=== PATIENT | male | born 1975 | race Caucasian/White ===

== ENCOUNTER 2018-03-23 13:07 | Emergency (ER) | payer MEDICARE, MEDICAID, SELFPAY ==
[2018-03-23 13:09] VITALS: BP 135/92; PULSE 90; RESP 18; TEMP 36.4; O2SAT 96
--- NOTE | 2018-03-23 13:36 | ED_ITS ---
HPI - Recheck/Abnormal Lab/Rx <ABRAHAM Ryan - Last Filed: 03/23/18 13:48> General Chief Complaint: Recheck/Abnormal Lab/Rx Stated Complaint: States needs emergency inhaler Time Seen by Provider: 03/23/18 13:26 Source: patient Mode of arrival: ambulatory Limitations: no limitations History of Present Illness HPI narrative: Patient is a 43-year-old male active smoker who presents by himself requesting a refill of his Ventolin. He states he has a history of asthma and ran out of his emergency inhaler. He does not have a primary care provider. He does complain of a productive cough but denies any fevers nausea vomiting diarrhea. He denies any shortness of breath at this point time. He states he was exposed to an allergen earlier today, which made his asthma worse so he used up his Ventolin emergency inhaler. He states the only wants today as a refill of his inhaler. Related Data Previous Rx's Medication Instructions Recorded sulfamethoxazole-trimethoprim 1 tab PO BID 7 Days #0 tab 12/18/15 albuterol sulfate [Ventolin HFA] 2 puff INHALATION Q4-6H PRN #18 03/23/18 gram Allergies Allergy/AdvReac Type Severity Reaction Status Date / Time Penicillins Allergy Severe Unresponsiv Verified 03/23/18 13:12 e Review of Systems <ABRAHAM Ryan - Last Filed: 03/23/18 13:48> Review of Systems GENERAL: Denies chills, fatigue, malaise, fever, sweats. HEENT: Denies sinus pain, ear pain, sore throat, difficulty swallowing, dizziness. RESPIRATORY: See HPI CARDIOVASCULAR: Denies chest pain, palpitations, orthopnea, edema, GASTROINTESTINAL: Denies nausea, vomiting, abdominal pain, diarrhea, constipation, melena. : Denies dysuria, frequency, incontinence, hematuria, urinary retention. MUSCULOSKELETAL: denies weakness, joint pain, or bony pain SKIN: Denies rash, skin lesions, or other NEUROLOGIC: Denies weakness, headache, numbness, change in speech, confusion, seizures, incoordination. PSYCHIATRIC: No concerning psychosocial issues. 12 point review of systems is negative except for those stated above Exam <ABRAHAM Ryan - Last Filed: 03/23/18 13:48> Narrative Exam Narrative: GENERAL: This is a well-nourished, well-developed patient, in no acute distress HEAD: Atraumatic. Normocephalic. No temporal or scalp tenderness. EYES: Pupils equal round and reactive. Extraocular motions intact. No scleral icterus. No injection or drainage. ENT: Nose without bleeding, purulent drainage or septal hematoma. Throat without erythema, tonsillar hypertrophy or exudate. Uvula midline. Airway patent. NECK: Trachea midline. No JVD or lymphadenopathy. Supple, nontender, no meningeal signs. CARDIOVASCULAR: Regular rate and rhythm without murmurs, gallops, or rubs. RESPIRATORY: Clear to auscultation. Breath sounds equal bilaterally. No wheezes , rales, or rhonchi. No accessory muscle use. No 1-2 word dyspnea. Speaking clear sentences. GASTROINTESTINAL: Abdomen soft, non-tender, nondistended. No hepato-splenomegaly , or palpable masses. No guarding. EXTREMITIES: No clubbing, cyanosis, or edema. No joint tenderness, effusion, or edema noted. BACK: Nontender without deformity or crepitance. No flank tenderness. NEURO: AOx3. SKIN: No rash or erythema. Initial Vital Signs Initial Vital Signs: Vital Signs Temperature 97.6 F 03/23/18 13:09 Pulse Rate 90 03/23/18 13:09 Respiratory Rate 18 03/23/18 13:09 Blood Pressure 135/92 H 03/23/18 13:09 Pulse Oximetry 96 03/23/18 13:09 <Braden Herrera DO - Last Filed: 03/23/18 14:15> Initial Vital Signs Initial Vital Signs: Vital Signs Temperature 97.6 F 03/23/18 13:09 Pulse Rate 90 03/23/18 13:09 Respiratory Rate 18 03/23/18 13:09 Blood Pressure 135/92 H 03/23/18 13:09 Pulse Oximetry 96 03/23/18 13:09 Course <ABRAHAM Ryan - Last Filed: 03/23/18 13:48> Vital Signs - 8 hr 03/23/18 13:09 Temperature 97.6 F Pulse Rate 90 Respiratory Rate 18 Blood Pressure 135/92 H Pulse Oximetry 96 <Braden Herrera DO - Last Filed: 03/23/18 14:15> Vital Signs - 8 hr 03/23/18 13:09 Temperature 97.6 F Pulse Rate 90 Respiratory Rate 18 Blood Pressure 135/92 H Pulse Oximetry 96 [facility] [place] - Recheck/Abnormal Lab/Rx <LONA Ryan - Last Filed: 03/23/18 13:48> [facility] Narrative Medical decision making narrative: Patient presents requesting a refill for his inhaler. Given his productive cough and chills, I offered to x-ray his chest and do further workup. We discussed the possibility of pneumonia, but he does not want any further workup today and declines x-ray. Given that he is afebrile , has stable vital signs and is hemodynamically stable, comfortable giving him a prescription of Ventolin at this point time. We discussed return precautions to the emergency department including severe shortness of breath. Discharge Plan Departure Patient Disposition: Home Clinical Impression: Medication refill Discharge Date/Time: 03/23/18 13:49 Interventions: ED Discharge Assessment Last Done: 03/23/18 13:49 Instructions: DI for Asthma -- Adult Activity Restrictions/Additional Instructions: I have given you a refill for Ventolin. Please follow-up with the primary care provider come back to the emergency department for severe shortness of breath or acute concerns. Prescriptions: New albuterol sulfate [Ventolin HFA] 90 mcg/actuation HFA aerosol inhaler 2 puff INHALATION Q4-6H PRN (Reason: shortness of breath or wheezing) Qty: 18 RF: 0 No Action sulfamethoxazole-trimethoprim 800 MG/160 MG tablet 1 tab PO BID 7 Days Qty: 0 RF: 0 Referrals: Cordell Canales ARNP [Primary Care Provider] - <Braden Herrera DO - Last Filed: 03/23/18 14:15> Cosign ED Attending Deanaature Attestation: I was available for consultation during this patient's emergency department encounter
== END 2018-03-23 13:49 | disposition home or self-care (01) ==
PROVIDERS: Emergency Provider Nurse Practitioner Family; PCP Nurse Practitioner
DX: Z76.0 Encounter for issue of repeat prescription (principal)
CPT/HCPCS: 99282

== ENCOUNTER 2020-10-20 02:12 | Emergency (ER) | payer MEDICARE, MEDICAID, SELFPAY ==
--- NOTE | 2020-10-20 02:19 | DI.RAD.S_ITS ---
PROCEDURE: XR CHEST 1V INDICATIONS: cough, difficulty breathing TECHNIQUE: One view of the chest was acquired. COMPARISON: None. FINDINGS: Surgical changes and devices: None. Lungs and pleura: Lungs are clear. No pleural effusions or pneumothorax. Mediastinum: Mediastinal contours appear normal. Heart size is normal. Lungs are hyperinflated suggesting COPD. Bones and chest wall: No suspicious bony lesions. Overlying soft tissues appear unremarkable. IMPRESSION: No acute cardiopulmonary disease process. Dictated by: Micki Islas MD, PhD on 10/20/2020 at 8:20 Approved by: Micki Islas MD, PhD on 10/20/2020 at 8:22
[2020-10-20 02:24] VITALS: BP 128/94; PULSE 100; RESP 14; TEMP 36.4; O2SAT 95; BMI 22.8
--- NOTE | 2020-10-20 02:25 | ED.SOB ---
HPI - SOB/Dyspnea General Chief Complaint: Shortness of Breath/Dyspnea Stated Complaint: Short of breath Time Seen by Provider: 10/20/20 02:19 History of Present Illness HPI Narrative: Patient is a 45-year-old male with history of asthma presenting with CC increased chest tightness and shortness of breath. He is homeless he feels like the smoke has been aggravating him more and he is needing his albuterol inhaler more. He ran out. He denies fever or chills. His chest feels tight. He received DuoNeb with EMS and is overall feeling better. Related Data Previous Rx's Medication Instructions Recorded sulfamethoxazole 800 1 tab PO BID 7 Days #0 tab 12/18/15 mg-trimethoprim 160 mg tablet albuterol sulfate 90 mcg/actuation 2 puff INHALATION Q4-6H PRN #18 03/23/18 aerosol inhaler (Ventolin HFA) gram albuterol sulfate 90 mcg/actuation 2 puff INHALATION Q4-6H PRN #8.5 10/20/20 aerosol inhaler gram prednisone 20 mg tablet 40 mg PO DAILY #10 tab 10/20/20 Allergies Allergy/AdvReac Type Severity Reaction Status Date / Time Penicillins Allergy Severe Unresponsiv Verified 03/23/18 13:12 e Review of Systems Review of Systems Narrative: GENERAL: Denies chills, fatigue, malaise, fever, sweats, travel HEENT: Denies sinus pain, ear pain, sore throat, difficulty swallowing, neck pain RESPIRATORY: See HPI CARDIOVASCULAR: Denies chest pain, palpitations, orthopnea, edema GASTROINTESTINAL: Denies nausea, vomiting, abdominal pain, diarrhea, constipation, melena. : Denies dysuria, frequency, incontinence, hematuria, urinary retention, flank pain. MUSCULOSKELETAL: Denies weakness, joint pain, or bony pain SKIN: No rash, no erythema, no pruritus NEUROLOGIC: Denies weakness, dizziness, headache, numbness, change in speech, confusion PSYCHIATRIC: No concerning psychosocial issues. 12 point review of systems is negative except for those stated above and HPI Patient History Medical History (Updated 10/20/20 @ 03:00 by Lucille Gambino DO) Asthma Social History (Updated 03/23/18 @ 13:37 by ABRAHAM Ryan) Smoking Status: Current every day smoker Smoking Status: Current every day smoker Exam Initial Vital Signs Initial Vital Signs: Vital Signs Temperature 97.6 F 10/20/20 02:24 Pulse Rate 100 H 10/20/20 02:24 Respiratory Rate 14 10/20/20 02:24 Blood Pressure 128/94 H 10/20/20 02:24 Pulse Oximetry 95 10/20/20 02:24 GENERAL: 45-year-old male currently getting nebulizer treatment HEENT: Head atraumatic,EOMI, pupils reactive, face symmetric, moist] mucous membranes CARDIOVASCULAR: Regular rate and rhythm without murmurs, rubs or gallops. RESPIRATORY: Slightly decreased breath sounds bilaterally but speaks in full sentences without difficulty. ABDOMEN: Soft, nontender. Normoactive bowel sounds all 4 quadrants. No guarding or rebound. EXTREMITIES: Normal range of motion, no clubbing or edema. Neurovascularly intact NEUROLOGICAL: Alert and oriented x4.Normal gait and speech. SKIN: Warm, dry, no laceration, no petechiae, no rashes or lesions. Course Orders Ordered: ED Orders 10/20/20 02:15 COVID19 -Nasal swab/Pre-Proc Stat 10/20/20 02:19 XR chest 1V Stat Discontinued Medications Albuterol (Albuterol Hfa Prepack) 1 box MISC SEEINSTR ONE Stop: 10/20/20 02:50 Last Admin: 10/20/20 02:55 Dose: 1 box Documented by: Prednisone (Prednisone 20 Mg Tablet) 60 mg PO NOW ONE Stop: 10/20/20 02:20 Last Admin: 10/20/20 02:27 Dose: 60 mg Documented by: Vital Signs Vital signs: Vital Signs - 8 hr 10/20/20 02:24 10/20/20 02:56 10/20/20 02:57 Temperature 97.6 F Pulse Rate 100 H 91 H 83 Respiratory Rate 14 20 17 Blood Pressure 128/94 H 131/93 H Pulse Oximetry 95 92 92 MDM - SOB/Dyspnea Lab Data Labs: Lab Results 10/20/20 Range/Units 02:15 SARS-CoV-2 (PCR) Negative (Negative) Imaging Data Chest x-ray: Radiologist's Impression: Preliminary report: Marked pulmonary hyperinflation no active disease in chest MDM Narrative Medical decision making narrative: Patient has a history of asthma, ran out of his inhaler overall feeling significantly better after DuoNeb. Chest x-ray shows hyperinflation without signs of pneumonia. He is afebrile and COVID negative. He denies any orthopnea. At this time patient signs and symptoms are consistent with an asthma exacerbation. X-ray does not show any pneumonia and he is afebrile. Discharge Plan Departure Patient Disposition: Home Clinical Impression: Asthma exacerbation Qualifiers: Asthma severity: moderate Asthma persistence: persistent Qualified Code(s): J45.41 - Moderate persistent asthma with (acute) exacerbation Instructions: DI for Asthma -- Adult Activity Restrictions/Additional Instructions: *You have been diagnosed with asthma exacerbation *What to do: At this time chest x-ray does not show any pneumonia no need for antibiotics at this time. Your COVID test is negative. *Continue to take medications as directed Albuterol 1-2 puffs 34 hours if needed for shortness of breath Prednisone 40 with mg once a day for 5 days start tomorrow *Follow up with your primary care provider in 2-3 days *Return to ER if you should have increasing chest pain, shortness of breath, fever, chills or any new, worsening or concerning symptoms Prescriptions: New prednisone 20 mg tablet 40 mg PO DAILY Qty: 10 RF: 0 albuterol sulfate 90 mcg/actuation HFA aerosol inhaler 2 puff INHALATION Q4-6H PRN (Reason: shortness of breath or wheezing) Qty: 8.5 RF: 0 No Action sulfamethoxazole-trimethoprim 800 MG/160 MG tablet 1 tab PO BID 7 Days Qty: 0 RF: 0 albuterol sulfate [Ventolin HFA] 90 mcg/actuation HFA aerosol inhaler 2 puff INHALATION Q4-6H PRN (Reason: shortness of breath or wheezing) Qty: 18 RF: 0 Referrals: Cordell Canales ARNP [Primary Care Provider] -
[2020-10-20] MEDS: predniSONE 20 MG TABLET 60 MG PO (02:27)
[2020-10-20 02:34] LABS: COVID19 -Nasal RAPID Negative (Negative)
[2020-10-20] MEDS: ALBUTEROL HFA PREPACK 1 BOX MISC (02:55)
[2020-10-20 02:56] VITALS: PULSE 91; RESP 20; O2SAT 92
[2020-10-20 02:57] VITALS: BP 131/93; PULSE 83; RESP 17; O2SAT 92
== END 2020-10-20 03:11 | disposition home or self-care (01) ==
PROVIDERS: Emergency Provider Emergency Medicine; PCP Nurse Practitioner
DX: J45.41 Moderate persistent asthma with (acute) exacerbation (principal); R05 Cough; Z20.822 Contact with and (suspected) exposure to COVID-19
CPT/HCPCS: 71045; 87635; 94640; 99283; C9803

== ENCOUNTER 2020-11-24 23:53 | Emergency (ER) | payer MEDICARE, MEDICAID, SELFPAY ==
[2020-11-24 23:59] VITALS: BP 152/92; PULSE 80; RESP 22; TEMP 36.7; O2SAT 96; BMI 24.3
[2020-11-25 00:29] LABS: COVID19 -Nasal RAPID Negative (Negative)
--- NOTE | 2020-11-25 00:36 | ED.GENADULT ---
HPI - General Adult General Chief complaint: Shortness of Breath/Dyspnea Stated complaint: difficulty breathing Time Seen by Provider: 11/25/20 00:08 Source: patient Mode of arrival: Ambulatory Limitations: no limitations History of Present Illness HPI narrative: Patient is a 45-year-old male. History of asthma. Does have albuterol at home but ran out and states that he cannot get it filled until tomorrow. States for the past couple hours he has had increasing difficulty breathing. Did cough up some phlegm after arrival which he states seemed to help things somewhat. He has not had any fevers. No chest pain. Has not tried anything for the symptoms prior to arrival. Related Data Previous Rx's Medication Instructions Recorded sulfamethoxazole 800 1 tab PO BID 7 Days #0 tab 12/18/15 mg-trimethoprim 160 mg tablet albuterol sulfate 90 mcg/actuation 2 puff INHALATION Q4-6H PRN #18 03/23/18 aerosol inhaler (Ventolin HFA) gram albuterol sulfate 90 mcg/actuation 2 puff INHALATION Q4-6H PRN #8.5 10/20/20 aerosol inhaler gram prednisone 20 mg tablet 40 mg PO DAILY #10 tab 10/20/20 albuterol sulfate 90 mcg/actuation 2 puff INHALATION Q6H PRN #6.7 g 11/07/20 aerosol inhaler mupirocin 2 % topical ointment 1 applic TOPICAL BID 14 Days #22 g 11/07/20 Allergies Allergy/AdvReac Type Severity Reaction Status Date / Time Penicillins Allergy Severe Unresponsiv Verified 11/07/20 10:22 e Review of Systems Cardiovascular Cardiovascular: Reports as per HPI and Reports system reviewed and no additional complaints, except as documented Respiratory Respiratory: Reports as per HPI and Reports system reviewed and no additional complaints, except as documented Gastrointestinal Gastrointestinal: Reports as per HPI and Reports system reviewed and no additional complaints, except as documented Integumentary/Breasts Skin/Breast: Reports system reviewed and no additional complaints, except as documented and Reports as per HPI Hematologic/Lymphatic On Anticoagulants: No Patient History Medical History Asthma Social History Smoking Status: Current every day smoker Smoking Status: Current every day smoker tobacco type: cigarettes and vaping Substance Use Type: marijuana Exam Initial Vital Signs Initial Vital Signs: Vital Signs Temperature 98.0 F 11/24/20 23:59 Pulse Rate 80 11/24/20 23:59 Respiratory Rate 22 11/24/20 23:59 Blood Pressure 152/92 H 11/24/20 23:59 Pulse Oximetry 96 11/24/20 23:59 Const General: cooperative and comfortable HENMT Head: normal to inspection and normocephalic Resp Effort & Inspection: labored and tachypneic Auscultation: diminished lung sounds and wheezes Cardio Rate: regular rate Rhythm: regular rhythm Skin General: no rashes or lesions noted Neuro General: patient alert, patient awake and moves all extremities Extrem General: normal to inspection Psych Appearance: grossly normal and well kempt Course Orders Ordered: ED Orders 11/25/20 00:00 COVID19 -Nasal swab/Pre-Proc Stat 11/25/20 00:20 RT Consult Eval and Treat Now Discontinued Medications Albuterol (Albuterol 2.5 Mg/3 Ml Neb (Adult)) 20 mg INH NOW ONE Stop: 11/25/20 00:36 Last Admin: 11/25/20 00:42 Dose: 20 mg Documented by: SIDNEY Dexamethasone (Dexamethasone 4 Mg Tablet) 12 mg PO NOW ONE Stop: 11/25/20 00:36 Last Admin: 11/25/20 00:39 Dose: 12 mg Documented by: MALIK Vital Signs Vital signs: Vital Signs - 8 hr 11/24/20 23:59 11/25/20 00:42 11/25/20 01:10 Temperature 98.0 F Pulse Rate 80 76 90 Respiratory Rate 22 22 21 Blood Pressure 152/92 H 139/81 Pulse Oximetry 96 95 Medical Decision Making Lab Data Labs: Lab Results 11/25/20 Range/Units 00:00 SARS-CoV-2 (PCR) Negative (Negative) MDM Narrative Medical decision making narrative: No fever. Improved after treatment here in the ER. Low suspicion for pneumonia. No indication for chest x-ray. No indication for antibiotics. Was given a dose of steroids. 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 He was given return precautions and follow-up instructions. Expressed understanding agreement. Discharge Plan Departure Patient Disposition: Home Clinical Impression: Asthma with exacerbation Instructions: DI for Asthma -- Adult Activity Restrictions/Additional Instructions: Be sure to citrus picker your albuterol tomorrow when it is ready. Contact your primary doctor for a follow-up. Return to the emergency department for any new or worsening symptoms Prescriptions: No Action mupirocin 2 % ointment 1 applic topical BID 14 Days Qty: 22 RF: 1 albuterol sulfate 90 mcg/actuation HFA aerosol inhaler 2 puff inhalation Q6H PRN (Reason: shortness of breath or wheezing) Qty: 6.7 RF: 3 sulfamethoxazole-trimethoprim 800 MG/160 MG tablet 1 tab PO BID 7 Days Qty: 0 RF: 0 albuterol sulfate [Ventolin HFA] 90 mcg/actuation HFA aerosol inhaler 2 puff INHALATION Q4-6H PRN (Reason: shortness of breath or wheezing) Qty: 18 RF: 0 prednisone 20 mg tablet 40 mg PO DAILY Qty: 10 RF: 0 albuterol sulfate 90 mcg/actuation HFA aerosol inhaler 2 puff INHALATION Q4-6H PRN (Reason: shortness of breath or wheezing) Qty: 8.5 RF: 0 Referrals: Miscellaneous,Doctor, MD [Primary Care Provider] -
[2020-11-25] MEDS: dexAMETHasone 4 MG TABLET 12 MG PO (00:39)
[2020-11-25 00:42] VITALS: PULSE 76; RESP 22
[2020-11-25] MEDS: ALBUTEROL 2.5 MG/3 ML NEB (ADULT) 20 MG INH (00:42)
[2020-11-25 01:10] VITALS: BP 139/81; PULSE 90; RESP 21; O2SAT 95
[2020-11-25 02:40] VITALS: BP 135/83; PULSE 80; RESP 18; O2SAT 97
== END 2020-11-25 02:45 | disposition home or self-care (01) ==
PROVIDERS: Emergency Provider Emergency Medicine
DX: J45.901 Unspecified asthma with (acute) exacerbation (principal); Z20.822 Contact with and (suspected) exposure to COVID-19
CPT/HCPCS: 87635; 99283; C9803; J7613

== ENCOUNTER 2020-12-15 09:43 | Emergency (ER) | payer MEDICARE, MEDICAID, SELFPAY ==
[2020-12-15 09:57] VITALS: BP 154/98; PULSE 106; RESP 22; TEMP 36.9; O2SAT 95; BMI 25.1
[2020-12-15 10:23] VITALS: PULSE 74; RESP 20; O2SAT 95
[2020-12-15 10:24] VITALS: BP 131/85; PULSE 76; O2SAT 96
[2020-12-15 10:26] LABS: COVID19 -Nasal RAPID Negative (Negative)
[2020-12-15 10:30] VITALS: BP 129/88; PULSE 73; RESP 18; O2SAT 96
[2020-12-15] MEDS: ALBUTEROL 2.5 MG/3 ML NEB (ADULT) INH (10:35)
--- NOTE | 2020-12-15 10:49 | ED_ITS ---
HPI - URI/Sore Throat General Chief Complaint: Shortness of Breath/Dyspnea Stated Complaint: NEEDS A NEBULIZER TREATMENT Time Seen by Provider: 12/15/20 10:31 History of Present Illness HPI Narrative: Patient complains of asthma exacerbation again. Seen here in the last couple months for the same. Does not have a primary care. Ran out of his inhaler last week. Patient states something in the ear is triggering his asthma. He states he feels better breathing inside. Especially here now. Improved after DuoNeb treatment. Denies any chest pain. Has dry cough. No fever chills. Related Data Previous Rx's Medication Instructions Recorded sulfamethoxazole 800 1 tab PO BID 7 Days #0 tab 12/18/15 mg-trimethoprim 160 mg tablet albuterol sulfate 90 mcg/actuation 2 puff INHALATION Q4-6H PRN #18 03/23/18 aerosol inhaler (Ventolin HFA) gram albuterol sulfate 90 mcg/actuation 2 puff INHALATION Q4-6H PRN #8.5 10/20/20 aerosol inhaler gram prednisone 20 mg tablet 40 mg PO DAILY #10 tab 10/20/20 albuterol sulfate 90 mcg/actuation 2 puff INHALATION Q6H PRN #6.7 g 11/07/20 aerosol inhaler mupirocin 2 % topical ointment 1 applic TOPICAL BID 14 Days #22 g 11/07/20 albuterol sulfate 90 mcg/actuation 2 inhalation INHALATION QID PRN 12/15/20 aerosol inhaler (Ventolin HFA) #6.7 gram benzonatate 100 mg capsule 100 mg PO TID PRN #20 cap 12/15/20 (Tessalvickey Luciano) methylprednisolone 4 mg tablets in See Rx Instructions .ROUTE 12/15/20 a dose pack (Medrol (Ozzie)) .COMPLEX #21 each Allergies Allergy/AdvReac Type Severity Reaction Status Date / Time Penicillins Allergy Severe Unresponsiv Verified 11/07/20 10:22 e Review of Systems Review of Systems Narrative: GENERAL: Denies chills, fatigue, malaise, fever, sweats. HEENT: Denies sinus pain, ear pain, sore throat RESPIRATORY: Positive for dyspnea, cough CARDIOVASCULAR: Denies chest pain, palpitations GASTROINTESTINAL: Denies nausea, vomiting, abdominal pain : Denies dysuria, frequency, hematuria MUSCULOSKELETAL: denies muscle or bony pain SKIN: Denies rash, skin lesions NEUROLOGIC: Denies weakness, numbness ROS Unobtainable: All systems reviewed & are unremarkable except as noted in HPI and below Patient History Medical History Asthma Social History Smoking Status: Current every day smoker Smoking Status: Current every day smoker tobacco type: cigarettes and vaping Substance Use Type: marijuana Exam Narrative Exam Narrative: GENERAL: in no distress, not toxic not dyspneic HEAD: Normocephalic. EYES: Pupils equal round No scleral icterus. ENT: Mucous membranes moist. NECK: Trachea midline. CARDIOVASCULAR: Regular rate and rhythm without murmurs RESPIRATORY: Clear to auscultation. Breath sounds equal bilaterally. No wheezes, rales, or rhonchi. There is diminished lung sounds but speaking full sentences. No respiratory distress. Patient very comfortable. Improved after DuoNeb. GASTROINTESTINAL: Abdomen soft, non-tender NEURO: AOx4. SKIN: Warm and dry PSYCH: Not anxious, is cooperative Initial Vital Signs Initial Vital Signs: Vital Signs Temperature 98.4 F 12/15/20 09:57 Pulse Rate 106 H 12/15/20 09:57 Respiratory Rate 22 12/15/20 09:57 Blood Pressure 154/98 H 12/15/20 09:57 Pulse Oximetry 95 12/15/20 09:57 Course Course Course Narrative: No new issues during course of stay Orders Ordered: Discontinued Medications Albuterol (Albuterol 2.5 Mg/3 Ml Neb (Adult)) 2.5 mg INH NOW ONE Stop: 12/15/20 10:08 Last Admin: 12/15/20 10:35 Dose: 2.5 mg Documented by: FESTUS Albuterol (Albuterol Hfa Prepack) 1 box MISC SEEINSTR ONE Stop: 12/15/20 11:05 Last Admin: 12/15/20 11:08 Dose: 1 box Documented by: ZEFERINO Benzonatate (Benzonatate 100 Mg Capsule) 100 mg PO NOW ONE Stop: 12/15/20 10:50 Last Admin: 12/15/20 11:06 Dose: 100 mg Documented by: ZEFERINO Prednisone (Prednisone 20 Mg Tablet) 60 mg PO NOW ONE Stop: 12/15/20 10:50 Last Admin: 12/15/20 11:06 Dose: 60 mg Documented by: ZEFERINO Reevaluation(s) Reevaluation #1: Patient feels much better after DuoNeb treatment. Prescri ptions provided for patient. Agrees with treatment plan Vital Signs Vital signs: Vital Signs - 8 hr 12/15/20 09:57 12/15/20 10:23 12/15/20 10:24 Temperature 98.4 F Pulse Rate 106 H 74 76 Respiratory Rate 22 20 Blood Pressure 154/98 H 131/85 Pulse Oximetry 95 95 96 MDM - URI/Sore Throat Differential Diagnosis Differential diagnosis: Likely upper respiratory infection, viral infection, bronchitis and other (Asthma exacerbation) Lab Data Labs: Lab Results 12/15/20 Range/Units 09:54 SARS-CoV-2 (PCR) Negative (Negative) MDM Narrative Medical decision making narrative: Appropriate for discharge home. Exam reassuring. Improved with DuoNeb treatment. Patient was at of his inhaler otherwise he states he would not come in. Return precautions reviewed patient. He agrees with treatment plan and prescriptions and follow-up. no blood work indicated. No chest x-ray at this time. 95% room air. In no respiratory distress. Improved with DuoNeb. Discharge Plan Departure Patient Disposition: Home Clinical Impression: Asthma with exacerbation Qualifiers: Asthma severity: moderate Asthma persistence: unspecified Qualified Code(s): J45.901 - Unspecified asthma with (acute) exacerbation Instructions: DI for Asthma -- Adult Activity Restrictions/Additional Instructions: Call provided primary care referral line dissections family doctor. Call today. Continue steroid pack tomorrow. Continue inhaler 2 puffs every 4 hours as needed for asthma. Return if worse or any questions or concerns. Prescriptions: New benzonatate [Tessalon Perles] 100 mg capsule 100 mg PO TID PRN (Reason: cough) Qty: 20 RF: 0 methylprednisolone [Medrol (Ozzie)] 4 mg tablets,dose pack See Rx Instructions .ROUTE .COMPLEX Qty: 21 RF: 0 albuterol sulfate [Ventolin HFA] 90 mcg/actuation HFA aerosol inhaler 2 inhalation INHALATION QID PRN (Reason: shortness of breath or wheezing) Qty: 6.7 RF: 0 No Action mupirocin 2 % ointment 1 applic topical BID 14 Days Qty: 22 RF: 1 albuterol sulfate 90 mcg/actuation HFA aerosol inhaler 2 puff inhalation Q6H PRN (Reason: shortness of breath or wheezing) Qty: 6.7 RF: 3 sulfamethoxazole-trimethoprim 800 MG/160 MG tablet 1 tab PO BID 7 Days Qty: 0 RF: 0 albuterol sulfate [Ventolin HFA] 90 mcg/actuation HFA aerosol inhaler 2 puff INHALATION Q4-6H PRN (Reason: shortness of breath or wheezing) Qty: 18 RF: 0 prednisone 20 mg tablet 40 mg PO DAILY Qty: 10 RF: 0 albuterol sulfate 90 mcg/actuation HFA aerosol inhaler 2 puff INHALATION Q4-6H PRN (Reason: shortness of breath or wheezing) Qty: 8.5 RF: 0 Referrals: [facility] [Outside] Miscellaneous,Doctor, [Primary Care Provider] -
[2020-12-15 11:00] VITALS: PULSE 79; RESP 18; O2SAT 95
[2020-12-15] MEDS: BENZONATATE 100 MG CAPSULE PO (11:06)
[2020-12-15] MEDS: predniSONE 20 MG TABLET 60 MG PO (11:06)
[2020-12-15] MEDS: ALBUTEROL HFA PREPACK 1 BOX MISC (11:08)
== END 2020-12-15 11:11 | disposition home or self-care (01) ==
PROVIDERS: Emergency Provider Emergency Medicine
DX: J45.901 Unspecified asthma with (acute) exacerbation (principal); Z20.822 Contact with and (suspected) exposure to COVID-19
CPT/HCPCS: 87635; 99283; C9803; J7613

== ENCOUNTER 2021-01-12 11:51 | Emergency (ER) | payer MEDICARE, MEDICAID, SELFPAY ==
[2021-01-12 12:16] VITALS: BP 135/88; PULSE 91; RESP 20; TEMP 36.7; O2SAT 98; BMI 22.8
--- NOTE | 2021-01-12 12:36 | ED_ITS ---
HPI - URI/Sore Throat General Chief Complaint: Dental/Oral Stated Complaint: throat is sore Time Seen by Provider: 01/12/21 12:01 Source: patient Mode of arrival: Ambulatory Limitations: no limitations History of Present Illness HPI Narrative: Patient is a 45-year-old male who presents with sore throat for last 2 days. He actually says that he feels like some lymph nodes in his anterior throat. He has no painful swallowing. He has not had any fever. He has had ongoing headache and neck pain but seems to be moving his head well he says that has been going on for a number of days he is worried about his throat today. He is not vaccinated for COVID. Related Data Previous Rx's Medication Instructions Recorded sulfamethoxazole 800 1 tab PO BID 7 Days #0 tab 12/18/15 mg-trimethoprim 160 mg tablet albuterol sulfate 90 mcg/actuation 2 puff INHALATION Q4-6H PRN #18 03/23/18 aerosol inhaler (Ventolin HFA) gram albuterol sulfate 90 mcg/actuation 2 puff INHALATION Q4-6H PRN #8.5 10/20/20 aerosol inhaler gram prednisone 20 mg tablet 40 mg PO DAILY #10 tab 10/20/20 albuterol sulfate 90 mcg/actuation 2 puff INHALATION Q6H PRN #6.7 g 11/07/20 aerosol inhaler mupirocin 2 % topical ointment 1 applic TOPICAL BID 14 Days #22 g 11/07/20 albuterol sulfate 90 mcg/actuation 2 inhalation INHALATION QID PRN 12/15/20 aerosol inhaler (Ventolin HFA) #6.7 gram benzonatate 100 mg capsule 100 mg PO TID PRN #20 cap 12/15/20 (Tessalon Mustapha) methylprednisolone 4 mg tablets in See Rx Instructions .ROUTE 12/15/20 a dose pack (Medrol (Ozzie)) .COMPLEX #21 each Allergies Allergy/AdvReac Type Severity Reaction Status Date / Time Penicillins Allergy Severe Unresponsiv Verified 11/07/20 10:22 e Review of Systems Review of Systems Narrative: GENERAL: Denies chills,fever HEENT: See HPI RESPIRATORY: Denies dyspnea, cough, wheezing CARDIOVASCULAR: Denies chest pain, palpitations GASTROINTESTINAL: Denies nausea, vomiting MUSCULOSKELETAL: Denies extremity pain, injury SKIN: No rash, no laceration, no pruritus NEUROLOGIC: Denies weakness, dizziness, headache, numbness 8 point review of systems is negative except for those stated above and HPI Patient History Medical History Asthma Social History Smoking Status: Current every day smoker Smoking Status: Current every day smoker tobacco type: cigarettes and vaping alcohol intake frequency: a few times a week Substance Use Type: marijuana Exam Initial Vital Signs Initial Vital Signs: Vital Signs Temperature 98.1 F 01/12/21 12:16 Pulse Rate 91 H 01/12/21 12:16 Respiratory Rate 20 01/12/21 12:16 Blood Pressure 135/88 01/12/21 12:16 Pulse Oximetry 98 01/12/21 12:16 GENERAL: Well-appearing, well-nourished and in no acute distress. PHARYNX: Mild erythema no tonsillar exudate no uvular swelling or deviation no real cervical lymphadenopathy appreciated. CARDIOVASCULAR: peripheral pulses in tact, cap refill <2 sec RESPIRATORY: No respiratory distress, speaks in full sentences without difficulty EXTREMITIES: Normal range of motion, no clubbing or edema. Neurovascularly intact NEUROLOGICAL: Cranial nerves II through XII grossly intact. Normal gait and speech. SKIN: Warm, dry, no petechiae, no rashes or lesions. Course Orders Ordered: ED Orders 01/12/21 12:05 COVID19 -Nasal swab/Pre-Proc Stat 01/12/21 12:40 Strep Grp A by PCR Rapid Stat 01/12/21 13:08 Consult to DESIGN AND SALES CONSULTANT - Accounts Administrator Stat Vital Signs Vital signs: Vital Signs - 8 hr 01/12/21 12:16 Temperature 98.1 F Pulse Rate 91 H Respiratory Rate 20 Blood Pressure 135/88 Pulse Oximetry 98 MDM - URI/Sore Throat Lab Data Labs: Lab Results 01/12/21 01/12/21 Range/Units 12:05 12:40 SARS-CoV-2 (PCR) Negative (Negative) Group A Strep (PCR) Negative (Negative) MDM Narrative Medical decision making narrative: The patient overall appears well. No sign of meningitis he is afebrile. He has no cervical lymphadenopathy strep and COVID are negative. At this time likely other upper respiratory infection. Discharge Plan Departure Patient Disposition: Home Clinical Impression: Acute upper respiratory infection Instructions: DI for Viral Upper Respiratory Infection -- Adult Activity Restrictions/Additional Instructions: *You have been diagnosed with upper respiratory infection *What to do: This time COVID test and strep test are negative. If still having symptoms he may need more testing. *Continue to take medications as directed Tylenol 650mg every 4-6 hours if needed for [id number] pain *Follow up with your primary care provider in 2-3 days *Return to ER if you should have increasing pain difficulty swallowing fever greater than 100.4 for longer than 1 hour or any new, worsening or concerning symptoms Prescriptions: No Action mupirocin 2 % ointment 1 applic topical BID 14 Days Qty: 22 1RF albuterol sulfate 90 mcg/actuation HFA aerosol inhaler 2 puff inhalation Q6H PRN (Reason: shortness of breath or wheezing) Qty: 6.7 3RF sulfamethoxazole-trimethoprim 800 MG/160 MG tablet 1 tab PO BID 7 Days Qty: 0 0RF albuterol sulfate [Ventolin HFA] 90 mcg/actuation HFA aerosol inhaler 2 puff INHALATION Q4-6H PRN (Reason: shortness of breath or wheezing) Qty: 18 0RF prednisone 20 mg tablet 40 mg PO DAILY Qty: 10 0RF albuterol sulfate 90 mcg/actuation HFA aerosol inhaler 2 puff INHALATION Q4-6H PRN (Reason: shortness of breath or wheezing) Qty: 8. 5 0RF benzonatate [Tessalon Perles] 100 mg capsule 100 mg PO TID PRN (Reason: cough) Qty: 20 0RF methylprednisolone [Medrol (Ozzie)] 4 mg tablets,dose pack See Rx Instructions .ROUTE .COMPLEX Qty: 21 0RF Rx Instructions: orally per package directions albuterol sulfate [Ventolin HFA] 90 mcg/actuation HFA aerosol inhaler 2 inhalation INHALATION QID PRN (Reason: shortness of breath or wheezing) Qty: 6.7 0RF Referrals: Miscellaneous,Doctor, MD [Primary Care Provider] -
[2021-01-12 12:46] LABS: COVID19 -Nasal RAPID Negative (Negative)
[2021-01-12 13:08] LABS: Strep Grp A by PCR Rapid Negative (Negative)
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
== END 2021-01-12 13:55 | disposition home or self-care (01) ==
PROVIDERS: Emergency Provider Emergency Medicine
DX: J06.9 Acute upper respiratory infection, unspecified (principal); Z20.822 Contact with and (suspected) exposure to COVID-19; F17.200 Nicotine dependence, unspecified, uncomplicated
CPT/HCPCS: 87635; 87651; 99281; 99282; C9803

== ENCOUNTER 2021-01-23 09:57 | Emergency (ER) | payer MEDICARE, MEDICAID, SELFPAY ==
[2021-01-23] VITALS (7 sets, daily range): BP systolic 125–143; BP diastolic 75–99; PULSE 70–102; RESP 22; TEMP 36.7; O2SAT 93–97; BMI 23.6
[2021-01-23] MEDS: ALBUTEROL HFA PREPACK 1 BOX MISC (10:21)
--- NOTE | 2021-01-23 10:49 | ED_ITS ---
HPI - Asthma General Chief Complaint: Asthma Stated Complaint: Needs nebulizer treatment Time Seen by Provider: 01/23/21 10:31 Source: patient Mode of arrival: Ambulatory Limitations: no limitations History of Present Illness HPI Narrative: Patient here for cough and dyspnea. History of asthma. Patient here multiple visits for the same complaint in the past couple of months. Patient is homeless. He states he sleeps outdoors and is around a lot of allergens. He states his living situation will change shortly. He does smoke as well. No chest pain. Feeling better after inhaler. Usually gets breathing treatment nebulizer here as well. Otherwise no changes in health. Related Data Previous Rx's Medication Instructions Recorded sulfamethoxazole 800 1 tab PO BID 7 Days #0 tab 12/18/15 mg-trimethoprim 160 mg tablet albuterol sulfate 90 mcg/actuation 2 puff INHALATION Q4-6H PRN #18 03/23/18 aerosol inhaler (Ventolin HFA) gram albuterol sulfate 90 mcg/actuation 2 puff INHALATION Q4-6H PRN #8.5 10/20/20 aerosol inhaler gram prednisone 20 mg tablet 40 mg PO DAILY #10 tab 10/20/20 albuterol sulfate 90 mcg/actuation 2 puff INHALATION Q6H PRN #6.7 g 11/07/20 aerosol inhaler mupirocin 2 % topical ointment 1 applic TOPICAL BID 14 Days #22 g 11/07/20 albuterol sulfate 90 mcg/actuation 2 inhalation INHALATION QID PRN 12/15/20 aerosol inhaler (Ventolin HFA) #6.7 gram benzonatate 100 mg capsule 100 mg PO TID PRN #20 cap 12/15/20 (Grayson Luciano) methylprednisolone 4 mg tablets in See Rx Instructions .ROUTE 12/15/20 a dose pack (Medrol (Ozzie)) .COMPLEX #21 each albuterol sulfate 90 mcg/actuation 2 puff INHALATION Q6H PRN #6.7 g 01/20/21 aerosol inhaler prednisone 20 mg tablet 40 mg PO DAILY 5 Days #10 tab 01/20/21 Allergies Allergy/AdvReac Type Severity Reaction Status Date / Time Penicillins Allergy Severe Unresponsiv Verified 01/23/21 10:12 e Review of Systems Review of Systems Narrative: GENERAL: Denies chills, fatigue, malaise, fever, sweats. HEENT: Denies sinus pain, ear pain, sore throat RESPIRATORY: Positive for dyspnea, cough CARDIOVASCULAR: Denies chest pain, palpitations GASTROINTESTINAL: Denies nausea, vomiting, abdominal pain : Denies dysuria, frequency, hematuria MUSCULOSKELETAL: denies muscle or bony pain SKIN: Denies rash, skin lesions NEUROLOGIC: Denies weakness, numbness ROS Unobtainable: All systems reviewed & are unremarkable except as noted in HPI and below Patient History Medical History Asthma Social History Smoking Status: Current every day smoker Smoking Status: Current every day smoker tobacco type: cigarettes and vaping alcohol intake frequency: a few times a week Substance Use Type: marijuana Exam Narrative Exam Narrative: GENERAL: in no distress, not toxic not dyspneic HEAD: Normocephalic. EYES: Pupils equal round No scleral icterus. ENT: Mucous membranes moist. NECK: Trachea midline. CARDIOVASCULAR: Regular rate and rhythm without murmurs RESPIRATORY: Clear to auscultation. Breath sounds equal bilaterally. Mild diffuse bilateral wheezes, no rales, or rhonchi. Speaking full sentences. In no distress. Not dyspneic. GASTROINTESTINAL: Abdomen soft, non-tender EXTREMITIES: No gross deformities. BACK: No flank tenderness. NEURO: AOx4. SKIN: Warm and dry PSYCH: Not anxious, is cooperative Initial Vital Signs Initial Vital Signs: Vital Signs Pulse Rate 102 H 01/23/21 10:07 Pulse Oximetry 94 01/23/21 10:07 Course Course Course Narrative: No new issues during course of stay Orders Ordered: Discontinued Medications Albuterol (Albuterol Hfa Prepack) 1 box MISC SEEINSTR ONE Stop: 01/23/21 10:17 Last Admin: 01/23/21 10:21 Dose: 1 box Documented by: CRISTIAN Albuterol/Ipratropium (Albuterol/Ipratropium 3 Ml Ampul) 3 ml INH NOW ONE Stop: 01/23/21 10:47 Last Admin: 01/23/21 11:15 Dose: 3 ml Documented by: HAIDER Reevaluation(s) Reevaluation #1: Patient feeling better after breathing treatments. Time: 12:16 Vital Signs Vital signs: Vital Signs - 8 hr 01/23/21 10:07 01/23/21 10:08 01/23/21 10:13 Temperature 98.0 F Pulse Rate 102 H 99 H 98 H Respiratory Rate 22 Blood Pressure 143/99 H 143/99 H Pulse Oximetry 94 95 97 01/23/21 10:30 01/23/21 11:00 01/23/21 11:30 Temperature Pulse Rate 84 70 73 Respiratory Rate Blood Pressure 129/79 125/87 134/75 Pulse Oximetry 95 97 93 01/23/21 11:33 Temperature Pulse Rate Respiratory Rate Blood Pressure Pulse Oximetry 96 MDM - Asthma Differential Diagnosis Differential diagnosis: Likely Acute exacerbation, Acute asthmatic bronchitis and other Lab Data Labs: Lab Results 01/23/21 Range/Units 10:10 SARS-CoV-2 (PCR) Negative (Negative) MDM Narrative Medical decision making narrative: Appropriate for discharge home. No imaging indicated this time. No hypoxia. No tachypnea. Return precautions reviewed patient. Patient states he will have improvement in his living situation which will help his asthma triggers. P cherrie is not on any steroids at this time. Does not want cough medication. Discharge Plan Departure Patient Disposition: Home Clinical Impression: Acute asthmatic bronchitis Instructions: DI for Asthma -- Adult Activity Restrictions/Additional Instructions: I encourage you to stop smoking. Continue inhaler 2 puffs every 4 hours as needed for coughing. May call primary care referral line at [phone] 2 [facility] family doctor. Return if worse if any questions or concerns. Prescriptions: No Action mupirocin 2 % ointment 1 applic topical BID 14 Days Qty: 22 1RF albuterol sulfate 90 mcg/actuation HFA aerosol inhaler 2 puff inhalation Q6H PRN (Reason: shortness of breath or wheezing) Qty: 6.7 3RF albuterol sulfate 90 mcg/actuation HFA aerosol inhaler 2 puff inhalation Q6H PRN (Reason: shortness of breath or wheezing) Qty: 6.7 3RF prednisone 20 mg tablet 40 mg PO DAILY 5 Days Qty: 10 0RF sulfamethoxazole-trimethoprim 800 MG/160 MG tablet 1 tab PO BID 7 Days Qty: 0 0RF albuterol sulfate [Ventolin HFA] 90 mcg/actuation HFA aerosol inhaler 2 puff INHALATION Q4-6H PRN (Reason: shortness of breath or wheezing) Qty: 18 0RF prednisone 20 mg tablet 40 mg PO DAILY Qty: 10 0RF albuterol sulfate 90 mcg/actuation HFA aerosol inhaler 2 puff INHALATION Q4-6H PRN (Reason: shortness of breath or wheezing) Qty: 8.5 0RF benzonatate [Tessalon Perles] 100 mg capsule 100 mg PO TID PRN (Reason: cough) Qty: 20 0RF methylprednisolone [Medrol (Ozzie)] 4 mg tablets,dose pack See Rx Instructions .ROUTE .COMPLEX Qty: 21 0RF Rx Instructions: orally per package directions albuterol sulfate [Ventolin HFA] 90 mcg/actuation HFA aerosol inhaler 2 inhalation INHALATION QID PRN (Reason: shortness of breath or wheezing) Qty: 6.7 0RF Referrals: Miscellaneous,Doctor, MD [Primary Care Provider] -
[2021-01-23] MEDS: ALBUTEROL/IPRATROPIUM 3 ML AMPUL INH (11:15)
[2021-01-23 11:20] LABS: COVID19 -Nasal RAPID Negative (Negative)
== END 2021-01-23 12:31 | disposition home or self-care (01) ==
PROVIDERS: Emergency Provider Emergency Medicine
DX: J45.909 Unspecified asthma, uncomplicated (principal); F17.210 Nicotine dependence, cigarettes, uncomplicated; Z20.822 Contact with and (suspected) exposure to COVID-19
CPT/HCPCS: 87635; 94640; 99283; C9803

== ENCOUNTER 2021-04-10 09:05 | Emergency (ER) | payer MEDICARE, MEDICAID, SELFPAY ==
[2021-04-10] VITALS (10 sets, daily range): BP systolic 108–152; BP diastolic 75–102; PULSE 81–112; RESP 17–28; TEMP 36.2; O2SAT 91–97; BMI 23.0
--- NOTE | 2021-04-10 09:38 | DI.RAD.S_ITS ---
PROCEDURE: XR CHEST 1V INDICATIONS: suspected sepsis TECHNIQUE: One view of the chest was acquired. COMPARISON: [facility], CR, XR CHEST 1V, 10/20/2020, 2:23. FINDINGS: Surgical changes and devices: None. Lungs and pleura: Lungs are clear. No pleural effusions or pneumothorax. Mediastinum: Mediastinal contours appear normal. Heart size is normal. Bones and chest wall: No suspicious bony lesions. Overlying soft tissues appear unremarkable. IMPRESSION: No acute cardiopulmonary disease process. Dictated by: Micki Islas MD, PhD on 04/10/2021 at 10:15 Approved by: Micki Islas MD, PhD on 04/10/2021 at 10:16
[2021-04-10] MEDS: SODIUM CHLORIDE 0.9% 1,000 ML 1000 ML IV (09:56)
--- NOTE | 2021-04-10 09:59 | DI.CT.S_ITS ---
PROCEDURE: CT ANGIO CHEST PE PROTOCOL INDICATIONS: Hemoptysis hypoxic TECHNIQUE: After the administration of intravenous contrast, 2 mm thick sections acquired from the pulmonary apices to the posterior costophrenic angles. 3-dimensional maximum intensity projection (MIP) coronal and sagittal reformats were then acquired through the thorax. For radiation dose reduction, the following was used: automated exposure control, adjustment of mA and/or kV according to patient size. COMPARISON: None. FINDINGS: Image quality: Excellent. Pulmonary arteries: Pulmonary arteries are normal in size, and demonstrate no intraluminal filling defects to suggest central pulmonary embolism. Lungs and pleura: A few scattered atelectasis in periphery of bilateral lung villasenor are seen. No acute airspace opacities. No pleural effusions or pneumothorax. Central and peripheral airways are patent. Mediastinum: Heart size is normal, without pericardial effusion. No mediastinal or hilar adenopathy. Thoracic aorta is normal in caliber and enhancement. Esophagus is normal in caliber, without hiatal hernia. Bones and chest wall: No suspicious bony lesions. Ribs and thoracic spine appear intact throughout. Thyroid gland is within normal limits. No axillary or supraclavicular adenopathy. Abdomen: Visualized upper abdominal solid organs appear normal in the early arterial phase of enhancement. IMPRESSION: 1. No pulmonary embolism. No thoracic aortic aneurysm or dissection. 2. A few scattered atelectasis in bilateral lung villasenor are seen. No focal infiltrate, pleural effusion or pneumothorax. 3. No mediastinal or hilar lymphadenopathy. Dictated by: Arvind Jamil M.D. on 04/10/2021 at 10:45 Approved by: Arvind Jamil M.D. on 04/10/2021 at 10:56
[2021-04-10 10:00] LABS: Add Manual Diff / Slide Review NO; Basophils Absolute Auto 0 /uL (0-100); Basophils Percent Auto 1.1 % (0-2); Eosinophils Absolute Auto 100 /uL (0-450); Eosinophils Percent Auto 2.9 % (2-4); Hematocrit 42.2 % (41-53); Lymphocytes Absolute Auto 1300 /uL (1100-4500); Lymphocytes Percent Auto 30.1 % (25-40); Mean Corpuscular HGB Conc 35.5 % (30-36); Mean Corpuscular Hemoglobin 33.3 PG (26-34); Monocytes Absolute Auto 500 /uL (0-900); Monocytes Percent Auto 11.5 % (3-14); Neutrophils Absolute Auto 2400 /uL (1500-7000); Neutrophils Percent Auto 54.4 % (50-75); Platelet Count 248 X10^3/uL (150-400); Red Blood Cell Count 4.49 X10^6/uL (4.5-5.9); Red Cell Distribution Width 12.5 % (11.6-14.8); White Blood Cell Count 4.4 X10^3/uL (4.5-11.0)
[2021-04-10 10:11] LABS: Alanine Aminotransferase 21 IU/L (<50); Albumin 4.8 g/dL (3.5-5.0); Alkaline Phosphatase 47 U/L (38-126); Aspartate Aminotransferase 29 IU/L (17-59); BUN Creatinine Ratio 18.4 (6-22); Bilirubin Total 0.6 mg/dL (0.2-1.3); Blood Urea Nitrogen 18 mg/dL (9-20); Calcium 9.8 mg/dL (8.4-10.2); Carbon Dioxide 35 mmol/L (22-32); Chloride 101 mmol/L (98-107); Estimated Glomerular Filt Rate > 60.0 mL/min (>60); Globulin 2.4 g/dL (1.7-4.1); Glucose 111 mg/dL (70-100); HEMOLYSIS < 15 (0-50); Lactate (Lactic Acid) 1.5 mmol/L (0.7-2.1); Lipase 106 U/L (23-300); Potassium 4.5 mmol/L (3.4-5.1); Sodium 140 mmol/L (137-145); Total Protein 7.2 g/dL (6.3-8.2)
--- NOTE | 2021-04-10 10:12 | ED_ITS ---
HPI - SOB/Dyspnea General Chief Complaint: Shortness of Breath/Dyspnea Stated Complaint: Coughing up blood Time Seen by Provider: 04/10/21 09:49 Source: patient Mode of arrival: Ambulatory Limitations: no limitations History of Present Illness HPI Narrative: Patient is a 46-year-old male who is a current smoker smoking about 1 pack per day presents with mild hemoptysis. He was noted to be hypoxic with exertion and O2 sat of 80% on room air at triage. He states he ate breakfast this morning and choked a little and coughed up a little bit of pink. He has noticed that he has been a little more short of breath with exertion. He denies any chest pain or tightness. No fever chills or body aches. He also has had some right-sided pain underneath his ribs. No nausea or vomiting. Does have an albuterol inha ler that he run out of today. He overall appears comfortable now Related Data Previous Rx's Medication Instructions Recorded sulfamethoxazole 800 1 tab PO BID 7 Days #0 tab 12/18/15 mg-trimethoprim 160 mg tablet albuterol sulfate 90 mcg/actuation 2 puff INHALATION Q4-6H PRN #18 03/23/18 aerosol inhaler (Ventolin HFA) gram albuterol sulfate 90 mcg/actuation 2 puff INHALATION Q4-6H PRN #8.5 10/20/20 aerosol inhaler gram prednisone 20 mg tablet 40 mg PO DAILY #10 tab 10/20/20 albuterol sulfate 90 mcg/actuation 2 puff INHALATION Q6H PRN #6.7 g 11/07/20 aerosol inhaler mupirocin 2 % topical ointment 1 applic TOPICAL BID 14 Days #22 g 11/07/20 albuterol sulfate 90 mcg/actuation 2 inhalation INHALATION QID PRN 12/15/20 aerosol inhaler (Ventolin HFA) #6.7 gram benzonatate 100 mg capsule 100 mg PO TID PRN #20 cap 12/15/20 (Tessalvickey Luciano) methylprednisolone 4 mg tablets in See Rx Instructions .ROUTE 12/15/20 a dose pack (Medrol (Ozzie)) .COMPLEX #21 each albuterol sulfate 90 mcg/actuation 2 puff INHALATION Q6H PRN #6.7 g 01/20/21 aerosol inhaler albuterol sulfate 90 mcg/actuation 2 puff INHALATION Q4-6H PRN #8.5 04/10/21 aerosol inhaler gram doxycycline hyclate 100 mg capsule 100 mg PO BID #20 cap 04/10/21 prednisone 20 mg tablet 40 mg PO DAILY #10 tab 04/10/21 Allergies Allergy/AdvReac Type Severity Reaction Status Date / Time Penicillins Allergy Severe Unresponsiv Verified 04/10/21 09:38 e Review of Systems Review of Systems Narrative: GENERAL: Denies chills, fatigue, malaise, fever, sweats, travel HEENT: Denies sinus pain, ear pain, sore throat, difficulty swallowing, neck pain RESPIRATORY: See HPI CARDIOVASCULAR: See HPI GASTROINTESTINAL: Denies nausea, vomiting, abdominal pain, diarrhea, constipation, melena. : Denies dysuria, frequency, incontinence, hematuria, urinary retention, flank pain. MUSCULOSKELETAL: Denies weakness, joint pain, or bony pain SKIN: No rash, no erythema, no pruritus NEUROLOGIC: Denies weakness, dizziness, headache, numbness, change in speech, confusion PSYCHIATRIC: No concerning psychosocial issues. 12 point review of systems is negative except for those stated above and HPI Patient History Medical History Asthma Social History Smoking Status: Current every day smoker Smoking Status: Current every day smoker tobacco type: cigarettes and vaping alcohol intake frequency: a few times a week Substance Use Type: marijuana Exam Initial Vital Signs Initial Vital Signs: Vital Signs Temperature 97.1 F L 04/10/21 09:33 Pulse Rate 112 H 04/10/21 09:33 Respiratory Rate 24 04/10/21 09:33 Blood Pressure 152/102 H 04/10/21 09:33 Pulse Oximetry 94 04/10/21 09:33 GENERAL: Patient sitting in room overall well appearing no diaphoresis HEENT: Head atraumatic,EOMI, pupils reactive, face symmetric, moist mucous membranes CARDIOVASCULAR: Regular rate and rhythm without murmurs, rubs or gallops. RESPIRATORY: Decreased breath sounds bilaterally with mild expiratory wheezing no tachypnea speaks in full sentences without difficulty ABDOMEN: Soft, nontender. Normoactive bowel sounds all 4 quadrants. No gua rding or rebound. EXTREMITIES: Normal range of motion, no clubbing or edema. Neurovascularly intact NEUROLOGICAL: Alert and oriented x4 SKIN: Warm, dry, no laceration, no petechiae, no rashes or lesions. Course Orders Ordered: ED Orders 04/10/21 10:35 Blood Culture Stat Discontinued Medications Albuterol/Ipratropium (Albuterol/Ipratropium 3 Ml Ampul) 3 ml INH NOW ONE Stop: 04/10/21 10:12 Last Admin: 04/10/21 10:51 Dose: 3 ml Documented by: FRANCOIS Sodium Chloride (Normal Saline 0.9%) 1,000 mls @ 1,000 mls/hr IV BOLUS ONE Stop: 04/10/21 10:37 Last Infusion: 04/10/21 12:20 Dose: 0 mls/hr Documented by: Admin: 04/10/21 09:56 Dose: 1,000 mls/hr Documented by: BARNEY Methylprednisolone (Methylprednisolone 125 Mg/2 Ml Vial) 125 mg IV NOW ONE Stop: 04/10/21 10:12 Last Admin: 04/10/21 10:44 Dose: 125 mg Documented by: CRISTIAN Vital Signs Vital signs: Vital Signs - 8 hr 04/10/21 11:30 04/10/21 12:00 Pulse Rate 81 82 Respiratory Rate 25 H 23 Blood Pressure 116/79 135/84 Pulse Oximetry 93 95 MDM - SOB/Dyspnea Lab Data Result diagrams: 04/10/21 09:50 04/10/21 09:50 Labs: Lab Results 04/10/21 04/10/21 04/10/21 Range/Units 09:50 09:50 09:50 WBC 4.4 L (4.5-11.0) X10^3/uL RBC 4.49 L (4.5-5.9) X10^6/uL Hgb 15.0 (13.5-17.5) g/dL Hct 42.2 (41-53) % MCV 94.0 (80-100) fL MCH 33.3 (26-34) PG MCHC 35.5 (30-36) % RDW 12.5 (11.6-14.8) % Plt Count 248 (150-400) X10^3/uL Neut % (Auto) 54.4 (50-75) % Lymph % (Auto) 30.1 (25-40) % [place] % (Auto) 11.5 (3-14) % Eos % (Auto) 2.9 (2-4) % Baso % (Auto) 1.1 (0-2) % Neut # (Auto) 2400 (3662-9337) /uL Lymph # (Auto) 1300 (5127-2272) /uL [place] # (Auto) 500 (0-900) /uL Eos # (Auto) 100 (0-450) /uL Baso # (Auto) 0 (0-100) /uL Sodium 140 (137-145) mmol/L Potassium 4.5 (3.4-5.1) mmol/L Chloride 101 (98-107) mmol/L Carbon Dioxide 35 H (22-32) mmol/L BUN 18 (9-20) mg/dL Creatinine 0.98 (0.66-1.25) mg/dL Estimated GFR > 60.0 (>60) mL/min BUN/Creatinine Ratio 18.4 (6-22) Glucose 111 H (70-100) mg/dL Lactate 1.5 (0.7-2.1) mmol/L Calcium 9.8 (8.4-10.2) mg/dL Total Bilirubin 0.6 (0.2-1.3) mg/dL AST 29 (17-59) IU/L ALT 21 (<50) IU/L Alkaline Phosphatase 47 (38-126) U/L Total Creatine Kinase (55-170) U/L CK-MB (CK-2) (<2.37) ng/mL CK-MB (CK-2) Rel Index (1.5-5.0) % Troponin I (0.01-0.034) ng/mL NT-Pro-B Natriuret Pep (<125) pg/mL Total Protein 7.2 (6.3-8.2) g/dL Albumin 4.8 (3.5-5.0) g/dL Globulin 2.4 (1.7-4.1) g/dL Albumin/Globulin Ratio 2.0 (1.0-2.8) Lipase 106 (23-300) U/L Procalcitonin 0.03 (<0.5) ng/mL SARS-CoV-2 (PCR) (Negative) 04/10/21 04/10/21 Range/Units 09:50 09:50 WBC (4.5-11.0) X10^3/uL RBC (4.5-5.9) X10^6/uL Hgb (13.5-17.5) g/dL Hct (41-53) % MCV (80-100) fL MCH (26-34) PG MCHC (30-36) % RDW (11.6-14.8) % Plt Count (150-400) X10^3/uL Neut % (Auto) (50-75) % Lymph % (Auto) (25-40) % [place] % (Auto) (3-14) % Eos % (Auto) (2-4) % Baso % (Auto) (0-2) % Neut # (Auto) (9647-9821) /uL Lymph # (Auto) (2159-9463) /uL [place] # (Auto) (0-900) /uL Eos # (Auto) (0-450) /uL Baso # (Auto) (0-100) /uL Sodium (137-145) mmol/L Potassium (3.4-5.1) mmol/L Chloride (98-107) mmol/L Carbon Dioxide (22-32) mmol/L BUN (9-20) mg/dL Creatinine (0.66-1.25) mg/dL Estimated GFR (>60) mL/min BUN/Creatinine Ratio (6-22) Glucose (70-100) mg/dL Lactate (0.7-2.1) mmol/L Calcium (8.4-10.2) mg/dL Total Bilirubin (0.2-1.3) mg/dL AST (17-59) IU/L ALT (<50) IU/L Alkaline Phosphatase (38-126) U/L Total Creatine Kinase 130 (55-170) U/L CK-MB (CK-2) 2.77 H (<2.37) ng/mL CK-MB (CK-2) Rel Index 2.1 (1.5-5.0) % Troponin I < 0.012 (0.01-0.034) ng/mL NT-Pro-B Natriuret Pep 12 (<125) pg/mL Total Protein (6.3-8.2) g/dL Albumin (3.5-5.0) g/dL Globulin (1.7-4.1) g/dL Albumin/Globulin Ratio (1.0-2.8) Lipase (23-300) U/L Procalcitonin (<0.5) ng/mL SARS-CoV-2 (PCR) Negative (Negative) Imaging Data Chest x-ray: Radiologist's Impression: PROCEDURE:? XR CHEST 1V ? INDICATIONS:? suspected sepsis ? TECHNIQUE:? One view of the chest was acquired.? ? COMPARISON:? [facility], , XR CHEST 1V, 10/20/2020, 2:23. ? FINDINGS:? ? Surgical changes and devices:? None.? ? Lungs and pleura:? Lungs are clear.? No pleural effusions or pneumothorax.? ? Mediastinum:? Mediastinal contours appear normal.? Heart size is normal.? ? Bones and chest wall:? No suspicious bony lesions.? Overlying soft tissues appear unremarkable.? ? IMPRESSION:? No acute cardiopulmonary disease process. ? ? Dictated by: Micki Islas MD, PhD on 04/10/2021 at 10:15 ?? CT scan - chest: Radiologist's Impression: PROCEDURE:? CT ANGIO CHEST PE PROTOCOL ? INDICATIONS:? Hemoptysis hypoxic ? TECHNIQUE:? After the administration of intravenous contrast, 2 mm thick sections acquired from the pulmonary apices to the posterior costophrenic angles.? 3-dimensional maximum intensity projection (MIP) coronal and sagittal reformats were then acquired through the thorax.? For radiation dose reduction, the following was used:? automated exposure control, adjustment of mA and/or kV according to patient size.? ? COMPARISON:? None. ? FINDINGS:? Image quality:? Excellent.? ? Pulmonary arteries:? Pulmonary arteries are normal in size, and demonstrate no intraluminal filling defects to suggest central pulmonary embolism.? ? Lungs and pleura:? A few scattered atelectasis in periphery of bilateral lung villasenor are seen.? No acute airspace opacities.? No pleural effusions or pneumothorax.? Central and peripheral airways are patent.? ? Mediastinum:? Heart size is normal, without pericardial effusion.? No med iastinal or hilar adenopathy.? Thoracic aorta is normal in caliber and enhancement.? Esophagus is normal in caliber, without hiatal hernia.? ? Bones and chest wall:? No suspicious bony lesions.? Ribs and thoracic spine appear intact throughout.? Thyroid gland is within normal limits.? No axillary or supraclavicular adenopathy.? ? Abdomen:? Visualized upper abdominal solid organs appear normal in the early arterial phase of enhancement.? ? IMPRESSION:? 1. No pulmonary embolism.? No thoracic aortic aneurysm or dissection. 2. A few scattered atelectasis in bilateral lung villasenor are seen.? No focal infiltrate, pleural effusion or pneumothorax. 3. No mediastinal or hilar lymphadenopathy.? ? ? Dictated by: Arvind Jamil M.D. on 04/10/2021 at 10:45 ?? ECG Data Prior ECG tracings: not available for review Interpretation: Normal sinus rhythm rate 104 IA interval 176 QRS [address] changes MDM Narrative Medical decision making narrative: Patient is overall feeling better after albuterol. Blood work is reassuring CT does not show any pulmonary embolism. Patient is a pack-a-day smoker. Likely COPD exacerbation he does have sputum in production. Patient ambulated without decreasing his oxygen or increasing his heart rate. He overall feels better. At this time does not meet admission criteria. Will put him on prednisone doxycycline and albuterol. Discharge Plan Departure Patient Disposition: Home Clinical Impression: Acute exacerbation of chronic obstructive airways disease Instructions: Chronic Obstructive Pulmonary Disease Activity Restrictions/Additional Instructions: *You have been diagnosed with COPD exacerbation *What to do: At this time I do recommend that he stop smoking. *Continue to take medications as directed--> SENT TO [facility] IN [place] Prednisone 40 mg once a day for 5 days Doxycycline 100 mg twice a day for 7 days Albuterol 1-2 puffs every 4 hours if needed for shortness of breath *Follow up with your primary care provider in 2-3 days or call [phone] *Return to ER if you should have increasing shortness or any new, worsening or concerning symptoms Prescriptions: New doxycycline hyclate 100 mg capsule 100 mg PO BID Qty: 20 0RF prednisone 20 mg tablet 40 mg PO DAILY Qty: 10 0RF albuterol sulfate 90 mcg/actuation HFA aerosol inhaler 2 puff INHALATION Q4-6H PRN (Reason: shortness of breath or wheezing) Qty: 8.5 0RF No Action mupirocin 2 % ointment 1 applic topical BID 14 Days Qty: 22 1RF albuterol sulfate 90 mcg/actuation HFA aerosol inhaler 2 puff inhalation Q6H PRN (Reason: shortness of breath or wheezing) Qty: 6.7 3RF albuterol sulfate 90 mcg/actuation HFA aerosol inhaler 2 puff inhalation Q6H PRN (Reason: shortness of breath or wheezing) Qty: 6.7 3RF sulfamethoxazole-trimethoprim 800 MG/160 MG tablet 1 tab PO BID 7 Days Qty: 0 0RF albuterol sulfate [Ventolin HFA] 90 mcg/actuation HFA aerosol inhaler 2 puff INHALATION Q4-6H PRN (Reason: shortness of breath or wheezing) Qty: 18 0RF prednisone 20 mg tablet 40 mg PO DAILY Qty: 10 0RF albuterol sulfate 90 mcg/actuation HFA aerosol inhaler 2 puff INHALATION Q4-6H PRN (Reason: shortness of breath or wheezing) Qty: 8.5 0RF benzonatate [Tessalon Perles] 100 mg capsule 100 mg PO TID PRN (Reason: cough) Qty: 20 0RF methylprednisolone [Medrol (Ozzie)] 4 mg tablets,dose pack See Rx Instructions .ROUTE .COMPLEX Qty: 21 0RF Rx Instructions: orally per package directions albuterol sulfate [Ventolin HFA] 90 mcg/actuation HFA aerosol inhaler 2 inhalation INHALATION QID PRN (Reason: shortness of breath or wheezing) Qty: 6.7 0RF Referrals: Miscellaneous,Doctor, MD [Primary Care Provider] -
[2021-04-10 10:18] LABS: COVID19 -Nasal RAPID Negative (Negative)
[2021-04-10 10:19] LABS: Creatine Kinase 130 U/L (55-170)
[2021-04-10 10:27] LABS: Procalcitonin 0.03 ng/mL (<0.5)
[2021-04-10 10:32] LABS: NT-proBNP (BNP-Adult 18+) 12 pg/mL (<125); Troponin I < 0.012 ng/mL (0.01-0.034)
[2021-04-10 10:35] LABS: CKMB % Relative Index 2.1 % (1.5-5.0); Creatine Kinase MB 2.77 ng/mL (<2.37)
[2021-04-10] MEDS: methylPREDNISolone 125 MG/2 ML VIAL IV (10:44)
[2021-04-10] MEDS: ALBUTEROL/IPRATROPIUM 3 ML AMPUL INH (10:51)
== END 2021-04-10 12:54 | disposition home or self-care (01) ==
PROVIDERS: Emergency Provider Emergency Medicine
DX: J44.1 Chronic obstructive pulmonary disease with (acute) exacerbation (principal); F17.210 Nicotine dependence, cigarettes, uncomplicated; Z20.822 Contact with and (suspected) exposure to COVID-19
CPT/HCPCS: 36415; 71045; 71275; 80053; 82550; 82553; 83605; 83690; 83880; 84145; 84484; 85025; 87040; 87635; 93005; 93010; 94640; 96361; 96374; 99284; 99285; C9803; J2930

== ENCOUNTER 2021-05-01 02:48 | Emergency (ER) | payer MEDICARE, MEDICAID, SELFPAY ==
[2021-05-01 02:50] VITALS: BP 152/90; PULSE 104; RESP 25; TEMP 36.3; O2SAT 93; BMI 24.2
[2021-05-01 03:04] VITALS: PULSE 90; RESP 28; O2SAT 98
[2021-05-01] MEDS: ALBUTEROL 2.5 MG/3 ML NEB (ADULT) INH (03:04)
[2021-05-01 03:17] LABS: COVID19 -Nasal RAPID Negative (Negative)
[2021-05-01 03:22] VITALS: PULSE 81; RESP 20
[2021-05-01] MEDS: ALBUTEROL 2.5 MG/3 ML NEB (ADULT) 20 MG INH (03:22)
--- NOTE | 2021-05-01 04:12 | ED.GENADULT ---
HPI - General Adult General Chief complaint: Shortness of Breath/Dyspnea Stated complaint: NUBELIZER TREATMENT Time Seen by Provider: 05/01/21 02:49 Source: patient Mode of arrival: Ambulatory History of Present Illness HPI narrative: Patient is a 46-year-old male. Does have an extensive smoking history. According to his medical record has diagnosis of asthma and also diagnosis of COPD. Does have albuterol but ran out recently. Over past several hours has had increasing shortness of breath and wheezing. No fevers. Is coughing. Related Data Previous Rx's Medication Instructions Recorded sulfamethoxazole 800 1 tab PO BID 7 Days #0 tab 12/18/15 mg-trimethoprim 160 mg tablet albuterol sulfate 90 mcg/actuation 2 puff INHALATION Q4-6H PRN #18 03/23/18 aerosol inhaler (Ventolin HFA) gram albuterol sulfate 90 mcg/actuation 2 puff INHALATION Q4-6H PRN #8.5 10/20/20 aerosol inhaler gram prednisone 20 mg tablet 40 mg PO DAILY #10 tab 10/20/20 albuterol sulfate 90 mcg/actuation 2 puff INHALATION Q6H PRN #6.7 g 11/07/20 aerosol inhaler mupirocin 2 % topical ointment 1 applic TOPICAL BID 14 Days #22 g 11/07/20 albuterol sulfate 90 mcg/actuation 2 inhalation INHALATION QID PRN 12/15/20 aerosol inhaler (Ventolin HFA) #6.7 gram benzonatate 100 mg capsule 100 mg PO TID PRN #20 cap 12/15/20 (Tessalvickey Luciano) methylprednisolone 4 mg tablets in See Rx Instructions .ROUTE 12/15/20 a dose pack (Medrol (Ozzie)) .COMPLEX #21 each albuterol sulfate 90 mcg/actuation 2 puff INHALATION Q6H PRN #6.7 g 01/20/21 aerosol inhaler albuterol sulfate 90 mcg/actuation 2 puff INHALATION Q4-6H PRN #8.5 04/10/21 aerosol inhaler gram doxycycline hyclate 100 mg capsule 100 mg PO BID #20 cap 04/10/21 prednisone 20 mg tablet 40 mg PO DAILY #10 tab 04/10/21 Allergies Allergy/AdvReac Type Severity Reaction Status Date / Time Penicillins Allergy Severe Unresponsiv Verified 04/10/21 09:38 e Review of Systems Constitutional Constitutional: Denies fever(s) Cardiovascular Cardiovascular: Denies chest pain and Denies dyspnea Respiratory Respiratory: Denies cough and Denies dyspnea Gastrointestinal Gastrointestinal: Reports system reviewed and no additional complaints, except as documented Integumentary/Breasts Skin/Breast: Reports system reviewed and no additional complaints, except as documented Hematologic/Lymphatic On Anticoagulants: No Patient History Medical History Asthma Social History Smoking Status: Current every day smoker Smoking Status: Current every day smoker tobacco type: cigarettes and vaping alcohol intake frequency: 3 or more drinks per day Substance Use Type: marijuana Exam Initial Vital Signs Initial Vital Signs: Vital Signs Temperature 97.4 F L 05/01/21 02:50 Pulse Rate 104 H 05/01/21 02:50 Respiratory Rate 25 H 05/01/21 02:50 Blood Pressure 152/90 H 05/01/21 02:50 Pulse Oximetry 93 05/01/21 02:50 HENMT Head: normal to inspection and normocephalic Resp Effort & Inspection: labored, respiratory distress, retractions and tachypneic Auscultation: diminished lung sounds Cardio Rate: regular rate Skin General: no rashes or lesions noted Neuro General: patient alert, patient awake, patient oriented x3 and moves all extremities Extrem General: normal to inspection and capillary refill normal Psych Appearance: grossly normal and well kempt Course Orders Ordered: ED Orders 05/01/21 02:48 COVID19 -Nasal swab/Pre-Proc Stat 05/01/21 02:51 RT Consult Eval and Treat Now Discontinued Medications Albuterol (Albuterol 2.5 Mg/3 Ml Neb (Adult)) 2.5 mg INH NOW ONE Stop: 05/01/21 02:51 Last Admin: 05/01/21 03:04 Dose: 2.5 mg Documented by: CTRNADEGE Albuterol (Albuterol 2.5 Mg/3 Ml Neb (Adult)) 2.5 mg INH Q20M REJI Stop: 05/01/21 03:56 Albuterol (Albuterol 2.5 Mg/3 Ml Neb (Adult)) 20 mg INH NOW ONE Stop: 05/01/21 03:09 Last Admin: 05/01/21 03:22 Dose: 20 mg Documented by: [email or web address] Albuterol (Albuterol Hfa Prepack) 1 box [facility] ONE Stop: 05/01/21 04:32 Prednisone (Prednisone 20 Mg Tablet) 40 mg PO NOW ONE Stop: 05/01/21 04:26 Last Admin: 05/01/21 04:30 Dose: 40 mg Documented by: VANESSA Prednisone (Prednisone 20 Mg Prepack) 1 bottle [facility] ONE Stop: 05/01/21 04:32 Vital Signs Vital signs: Vital Signs - 8 hr 05/01/21 02:50 05/01/21 03:04 05/01/21 03:22 Temperature 97.4 F L Pulse Rate 104 H 90 81 Respiratory Rate 25 H 28 H 20 Blood Pressure 152/90 H Pulse Oximetry 93 98 Medical Decision Making Lab Data Labs: Lab Results 05/01/21 Range/Units 02:48 SARS-CoV-2 (PCR) Negative (Negative) MDM Narrative Medical decision making narrative: COVID is negative. Patient had severely diminished breath sounds bilaterally upon arrival. Was given a continuous albuterol nebulizer and oral prednisone. Afterwards his respiratory status improved. No fevers. I feel that we can hold on chest x-ray. I do suspect that this is an exacerbation of his asthma. Was sent home with steroids and also albuterol. He was given return precautions. He expressed understanding agreement. Discharge Plan Departure Patient Disposition: Home Clinical Impression: Asthma with exacerbation Instructions: DI for Asthma -- Adult Activity Restrictions/Additional Instructions: Take the steroids likely discussed. You can also use the albuterol inhaler that your given as needed as well. Return to the emergency department for any new or worsening symptoms. Prescriptions: No Action mupirocin 2 % ointment 1 applic topical BID 14 Days Qty: 22 1RF albuterol sulfate 90 mcg/actuation HFA aerosol inhaler 2 puff inhalation Q6H PRN (Reason: shortness of breath or wheezing) Qty: 6.7 3RF albuterol sulfate 90 mcg/actuation HFA aerosol inhaler 2 puff inhalation Q6H PRN (Reason: shortness of breath or wheezing) Qty: 6.7 3RF sulfamethoxazole-trimethoprim 800 MG/160 MG tablet 1 tab PO BID 7 Days Qty: 0 0RF albuterol sulfate [Ventolin HFA] 90 mcg/actuation HFA aerosol inhaler 2 puff INHALATION Q4-6H PRN (Reason: shortness of breath or wheezing) Qty: 18 0RF prednisone 20 mg tablet 40 mg PO DAILY Qty: 10 0RF albuterol sulfate 90 mcg/actuation HFA aerosol inhaler 2 puff INHALATION Q4-6H PRN (Reason: shortness of breath or wheezing) Qty: 8.5 0RF benzonatate [Tessalon Perles] 100 mg capsule 100 mg PO TID PRN (Reason: cough) Qty: 20 0RF methylprednisolone [Medrol (Ozzie)] 4 mg tablets,dose pack See Rx Instructions .ROUTE .COMPLEX Qty: 21 0RF Rx Instructions: orally per package directions albuterol sulfate [Ventolin HFA] 90 mcg/actuation HFA aerosol inhaler 2 inhalation INHALATION QID PRN (Reason: shortness of breath or wheezing) Qty: 6.7 0RF doxycycline hyclate 100 mg capsule 100 mg PO BID Qty: 20 0RF prednisone 20 mg tablet 40 mg PO DAILY Qty: 10 0RF albuterol sulfate 90 mcg/actuation HFA aerosol inhaler 2 puff INHALATION Q4-6H PRN (Reason: shortness of breath or wheezing) Qty: 8.5 0RF Referrals: Miscellaneous,Doctor, MD [Primary Care Provider] -
[2021-05-01] MEDS: predniSONE 20 MG TABLET 40 MG PO (04:30)
[2021-05-01] MEDS: ALBUTEROL HFA PREPACK 1 BOX MISC (05:12)
[2021-05-01] MEDS: predniSONE 20 MG PREPACK 1 BOTTLE MISC (05:13)
== END 2021-05-01 05:13 | disposition home or self-care (01) ==
PROVIDERS: Emergency Provider Emergency Medicine
DX: J45.901 Unspecified asthma with (acute) exacerbation (principal); F17.210 Nicotine dependence, cigarettes, uncomplicated; F17.290 Nicotine dependence, other tobacco product, uncomplicated; Z20.822 Contact with and (suspected) exposure to COVID-19
CPT/HCPCS: 87635; 94640; 99283; C9803; J7613

== ENCOUNTER 2021-05-27 11:51 | Emergency (ER) | payer MEDICARE, MEDICAID, SELFPAY ==
[2021-05-27] VITALS (11 sets, daily range): BP systolic 111–154; BP diastolic 71–106; PULSE 65–103; RESP 14–32; TEMP 36.6; O2SAT 93–98; BMI 24.3
[2021-05-27] MEDS: ALBUTEROL 2.5 MG/3 ML NEB (ADULT) 20 MG INH (12:05)
--- NOTE | 2021-05-27 12:09 | PC.NURSE ---
Pt reports smoking 1 pack a day of cigarettes and daily ETOH use. Denies recreational drug use. Hx HTN, asthma and COPD. Chronic neck/back pain.
[2021-05-27] MEDS: IPRATROPIUM 0.5 MG/2.5 ML NEB INH (12:22)
[2021-05-27 12:48] LABS: COVID19 -Nasal RAPID Negative (Negative)
--- NOTE | 2021-05-27 13:10 | ED_ITS ---
HPI - SOB/Dyspnea General Chief Complaint: Shortness of Breath/Dyspnea Stated Complaint: Emergency Neb Treatment Time Seen by Provider: 05/27/21 13:09 Source: patient Mode of arrival: Ambulatory Limitations: no limitations History of Present Illness HPI Narrative: This is a 46-year-old male with known history of asthma who does use tobacco daily. Patient states he has had increasing shortness of breath the last days. He has run out of his albuterol. He has known history of asthma. He states he has had tightness in his chest wall discomfort on the left side. He denies fevers, chills, cold cough or congestion. He does note that this time a year with all of the weather changes his asthma often flares. He does have some hay fever and seasonal allergies as well. Patient is also homeless in out in the [place] regularly which likely also flares his symptoms. He states he smokes intermittently some days he will smoke at all other days he will smoke entire pack of cigarettes. He did have a prescription for fluticasone orally but is unsure. He has not any other daily medications are supposed to have any other prescriptions. He is allergic to penicillin. He does drink alcohol, he uses marijuana intermittently. Related Data Previous Rx's Medication Instructions Recorded sulfamethoxazole 800 1 tab PO BID 7 Days #0 tab 12/18/15 mg-trimethoprim 160 mg tablet albuterol sulfate 90 mcg/actuation 2 puff INHALATION Q4-6H PRN #18 03/23/18 aerosol inhaler (Ventolin HFA) gram albuterol sulfate 90 mcg/actuation 2 puff INHALATION Q4-6H PRN #8.5 10/20/20 aerosol inhaler gram prednisone 20 mg tablet 40 mg PO DAILY #10 tab 10/20/20 albuterol sulfate 90 mcg/actuation 2 puff INHALATION Q6H PRN #6.7 g 11/07/20 aerosol inhaler mupirocin 2 % topical ointment 1 applic TOPICAL BID 14 Days #22 g 11/07/20 albuterol sulfate 90 mcg/actuation 2 inhalation INHALATION QID PRN 12/15/20 aerosol inhaler (Ventolin HFA) #6.7 gram benzonatate 100 mg capsule 100 mg PO TID PRN #20 cap 12/15/20 (Grayson Luciano) methylprednisolone 4 mg tablets in See Rx Instructions .ROUTE 12/15/20 a dose pack (Medrol (Ozzie)) .COMPLEX #21 each albuterol sulfate 90 mcg/actuation 2 puff INHALATION Q6H PRN #6.7 g 01/20/21 aerosol inhaler albuterol sulfate 90 mcg/actuation 2 puff INHALATION Q4-6H PRN #8.5 04/10/21 aerosol inhaler gram doxycycline hyclate 100 mg capsule 100 mg PO BID #20 cap 04/10/21 prednisone 20 mg tablet 40 mg PO DAILY #10 tab 04/10/21 prednisone 20 mg tablet 40 mg PO DAILY #10 tab 05/27/21 Allergies Allergy/AdvReac Type Severity Reaction Status Date / Time Penicillins Allergy Severe Unresponsiv Verified 05/27/21 12:01 e Review of Systems Review of Systems ROS Unobtainable: All systems reviewed & are unremarkable except as noted in HPI and below Patient History Medical History Asthma Social History Smoking Status: Current every day smoker Smoking Status: Current every day smoker tobacco type: cigarettes and vaping alcohol intake frequency: 3 or more drinks per day Substance Use Type: marijuana Exam Narrative Exam Narrative: GEN: well nourished, well appearing male, alert and oriented x 3, patient appears to be in mild distress. HEENT: Atraumatic, pupils are equal round reactive to light, extraocular movements are intact, nares are clear, TMs are clear with no fluid. HEART: Regular rate and rhythm without murmur, clicks, rubs. No carotid bruits, pulses are equal in upper and lower extremities LUNGS:Lungs decreased bilaterally, no wheezes, rales, crackles, chest moves symmetrically, positive for tachypnea. No accessory muscle use but patient has already been on his neb treatment for about 10 minutes. ABD:bowel sounds normal, soft, non-tender, no guarding, rebound, rigidity, no masses noted, no hepatosplenomegaly :No CVA tenderness MSCL: Non-tender, full range of motion, normal gait NEURO:CN 2-12 intact, sensation normal SKIN: No rash, erythema other skin changes. Initial Vital Signs Initial Vital Signs: Vital Signs Temperature 97.9 F 05/27/21 11:56 Pulse Rate 103 H 05/27/21 11:56 Respiratory Rate 32 H 05/27/21 11:56 Blood Pressure 154/106 H 05/27/21 11:56 Pulse Oximetry 93 05/27/21 11:56 Course Orders Ordered: ED Orders 05/27/21 12:26 COVID19 -Nasal swab/Pre-Proc Stat Discontinued Medications Albuterol (Albuterol 2.5 Mg/3 Ml Neb (Adult)) 20 mg INH NOW ONE Stop: 05/27/21 12:00 Last Admin: 05/27/21 12:05 Dose: 20 mg Documented by: HAIDER Albuterol (Albuterol Hfa Prepack) 1 box MISC SEEINSTR ONE Stop: 05/27/21 14:35 Last Admin: 05/27/21 14:48 Dose: 1 box Documented by: REYMUNDO Sodium Chloride (Normal Saline 0.9%) 1,000 mls @ 1,000 mls/hr IV BOLUS ONE Stop: 05/27/21 14:16 Last Infusion: 05/27/21 14:44 Dose: 0 mls/hr Documented by: Admin: 05/27/21 13:24 Dose: 1,000 mls/hr Documented by: BENNY Ipratropium [place] (Ipratropium 0.5 Mg/2.5 Ml Neb) 0.5 mg INH NOW ONE Stop: 05/27/21 12:21 Last Admin: 05/27/21 12:22 Dose: 0.5 mg Documented by: HAIDER Methylprednisolone (Methylprednisolone 125 Mg/2 Ml Vial) 125 mg IV NOW ONE Stop: 05/27/21 13:18 Last Admin: 05/27/21 13:23 Dose: 125 mg Documented by: BENNY Reevaluation(s) Reevaluation #1: Patient is feeling better after albuterol neb, Solu-Medrol and fluids. Is comfortable deferring additional workup seems consistent with asthma inhaler. Vital Signs Vital signs: Vital Signs - 8 hr 05/27/21 11:56 05/27/21 12:10 05/27/21 12:25 Temperature 97.9 F Pulse Rate 103 H 92 H 86 Respiratory Rate 32 H 20 22 Blood Pressure 154/106 H Pulse Oximetry 93 96 05/27/21 12:30 05/27/21 12:50 05/27/21 13:00 Temperature Pulse Rate 79 85 76 Respiratory Rate 14 22 17 Blood Pressure 111/79 114/71 Pulse Oximetry 96 96 94 05/27/21 13:01 05/27/21 13:30 05/27/21 14:00 Temperature Pulse Rate 78 80 80 Respiratory Rate 22 19 17 Blood Pressure 145/81 H 136/87 125/73 Pulse Oximetry 96 95 98 05/27/21 14:23 05/27/21 14:30 Temperature Pulse Rate 89 65 Respiratory Rate 18 20 Blood Pressure 135/81 125/79 Pulse Oximetry 97 97 MDM - SOB/Dyspnea Lab Data Labs: Lab Results 05/27/21 Range/Units 12:26 SARS-CoV-2 (PCR) Negative (Negative) MDM Narrative Medical decision making narrative: This is a 46-year-old male with known asthma, tobacco abuse who ran out of his albuterol. Patient responded well to neb treatment. Was given Solu-Medrol as well as fluids. On re-evaluation patient is feeling much better. Patient with given albuterol inhaler here. Discharge Plan Departure Patient Disposition: Home Clinical Impression: Asthma exacerbation Instructions: DI for Asthma -- Adult Activity Restrictions/Additional Instructions: Follow-up for recheck. It is recommended to stop smoking this will help decrease your asthma exacerbati ons. Use albuterol 2-4 puffs every 4 hours as needed. I would recommend taking prednisone daily until gone. Prescription sent to [facility] in [place]. Please return for worsening symptoms, fevers, new chest pain, lightheadedness or passing out, worsening shortness of breath, persistent vomiting, new swelling in her extremities or other new or concerning symptoms. Prescriptions: New prednisone 20 mg tablet 40 mg PO DAILY Qty: 10 0RF No Action mupirocin 2 % ointment 1 applic topical BID 14 Days Qty: 22 1RF albuterol sulfate 90 mcg/actuation HFA aerosol inhaler 2 puff inhalation Q6H PRN (Reason: shortness of breath or wheezing) Qty: 6.7 3RF albuterol sulfate 90 mcg/actuation HFA aerosol inhaler 2 puff inhalation Q6H PRN (Reason: shortness of breath or wheezing) Qty: 6.7 3RF sulfamethoxazole-trimethoprim 800 MG/160 MG tablet 1 tab PO BID 7 Days Qty: 0 0RF albuterol sulfate [Ventolin HFA] 90 mcg/actuation HFA aerosol inhaler 2 puff INHALATION Q4-6H PRN (Reason: shortness of breath or wheezing) Qty: 18 0RF prednisone 20 mg tablet 40 mg PO DAILY Qty: 10 0RF albuterol sulfate 90 mcg/actuation HFA aerosol inhaler 2 puff INHALATION Q4-6H PRN (Reason: shortness of breath or wheezing) Qty: 8.5 0RF benzonatate [Tessalon Perles] 100 mg capsule 100 mg PO TID PRN (Reason: cough) Qty: 20 0RF methylprednisolone [Medrol (Ozzie)] 4 mg tablets,dose pack See Rx Instructions .ROUTE .COMPLEX Qty: 21 0RF Rx Instructions: orally per package directions albuterol sulfate [Ventolin HFA] 90 mcg/actuation HFA aerosol inhaler 2 inhalation INHALATION QID PRN (Reason: shortness of breath or wheezing) Qty: 6.7 0RF doxycycline hyclate 100 mg capsule 100 mg PO BID Qty: 20 0RF prednisone 20 mg tablet 40 mg PO DAILY Qty: 10 0RF albuterol sulfate 90 mcg/actuation HFA aerosol inhaler 2 puff INHALATION Q4-6H PRN (Reason: shortness of breath or wheezing) Qty: 8.5 0RF Referrals: Miscellaneous,Doctor, MD [Primary Care Provider] -
[2021-05-27] MEDS: methylPREDNISolone 125 MG/2 ML VIAL IV (13:23)
[2021-05-27] MEDS: SODIUM CHLORIDE 0.9% 1,000 ML 1000 ML IV (13:24)
[2021-05-27] MEDS: ALBUTEROL HFA PREPACK 1 BOX MISC (14:48)
--- NOTE | 2021-05-27 14:55 | PC.NURSE ---
RR at 1423 should read 18RR. Provider aware.
== END 2021-05-27 14:58 | disposition home or self-care (01) ==
PROVIDERS: Emergency Provider Emergency Medicine
DX: J45.901 Unspecified asthma with (acute) exacerbation (principal); F17.210 Nicotine dependence, cigarettes, uncomplicated; Z20.822 Contact with and (suspected) exposure to COVID-19
CPT/HCPCS: 36415; 87635; 96374; 99284; C9803; A9270; J2930; J7613

== ENCOUNTER 2021-06-27 08:35 | Emergency (ER) | payer MEDICARE, MEDICAID, SELFPAY ==
[2021-06-27 08:56] VITALS: BP 139/100; PULSE 102; RESP 20; TEMP 36.7; O2SAT 96; BMI 22.8
[2021-06-27] MEDS: ALBUTEROL/IPRATROPIUM 3 ML AMPUL INH (08:56)
[2021-06-27 08:57] VITALS: O2SAT 97
--- NOTE | 2021-06-27 09:09 | ED_ITS ---
HPI - Asthma General Chief Complaint: Asthma Stated Complaint: Needs asthma treatment- rash on face Time Seen by Provider: 06/27/21 08:59 History of Present Illness HPI Narrative: Patient here for asthma exacerbation at started this morning. He is out of his asthma medication. Patient is homeless. Lives outside. He states the weather and environment has triggered his asthma this morning. This is not new. He does have a primary care clinic available. Denies any recent illness. No cough cold congestion. No fever chills. Patient received DuoNeb treatment on arrival. Related Data Previous Rx's Medication Instructions Recorded sulfamethoxazole 800 1 tab PO BID 7 days #0 tabs 12/18/15 mg-trimethoprim 160 mg tablet albuterol sulfate 90 mcg/actuation 2 puff inhalation Q4-6H PRN 03/23/18 aerosol inhaler (Ventolin HFA) shortness of breath or wheezing #18 grams albuterol sulfate 90 mcg/actuation 2 puff inhalation Q4-6H PRN 10/20/20 aerosol inhaler shortness of breath or wheezing #8.5 grams prednisone 20 mg tablet 40 mg PO DAILY #10 tabs 10/20/20 albuterol sulfate 90 mcg/actuation 2 puff inhalation Q6H PRN 11/07/20 aerosol inhaler shortness of breath or wheezing #6.7 grams mupirocin 2 % topical ointment 1 applic topical BID 14 days #22 11/07/20 grams albuterol sulfate 90 mcg/actuation 2 inhalation inhalation QID PRN 12/15/20 aerosol inhaler (Ventolin HFA) shortness of breath or wheezing #6.7 grams benzonatate 100 mg capsule 100 mg PO TID PRN cough #20 caps 12/15/20 (Grayson Luciano) methylprednisolone 4 mg tablets in See Rx Instructions PO .COMPLEX 12/15/20 a dose pack (Medrol (Ozzie)) #21 ea albuterol sulfate 90 mcg/actuation 2 puff inhalation Q6H PRN 01/20/21 aerosol inhaler shortness of breath or wheezing #6.7 grams albuterol sulfate 90 mcg/actuation 2 puff inhalation Q4-6H PRN 04/10/21 aerosol inhaler shortness of breath or wheezing #8.5 grams doxycycline hyclate 100 mg capsule 100 mg PO BID #20 caps 02/14/22 prednisone 20 mg tablet 40 mg PO DAILY #10 tabs 04/10/21 prednisone 20 mg tablet 40 mg PO DAILY #10 tabs 05/27/21 albuterol sulfate 90 mcg/actuation 2 inh inhalation QID PRN shortness 06/27/21 aerosol inhaler (Ventolin HFA) of breath or wheezing #6.7 grams methylprednisolone 4 mg tablets in See Rx Instructions PO .COMPLEX 06/27/21 a dose pack (Medrol (Ozzie)) #21 ea prednisone 10 mg tablet 10 mg PO DAILY #30 tabs 07/15/21 Allergies Allergy/AdvReac Type Severity Reaction Status Date / Time Penicillins Allergy Severe Unresponsiv Verified 05/27/21 12:01 e Review of Systems Review of Systems Narrative: GENERAL: Denies chills, fatigue, malaise, fever, sweats. HEENT: Denies sinus pain, ear pain, sore throat RESPIRATORY: Positive for dyspnea, negative cough CARDIOVASCULAR: Denies chest pain, palpitations GASTROINTESTINAL: Denies nausea, vomiting, abdominal pain : Denies dysuria, frequency, hematuria MUSCULOSKELETAL: denies muscle or bony pain SKIN: Denies rash, skin lesions NEUROLOGIC: Denies weakness, numbness ROS Unobtainable: All systems reviewed & are unremarkable except as noted in HPI and below Patient History Medical History Asthma Social History Smoking Status: Current every day smoker Smoking Status: Current every day smoker tobacco type: cigarettes and vaping alcohol intake frequency: 3 or more drinks per day Substance Use Type: marijuana Exam Narrative Exam Narrative: GENERAL: in no distress, not toxic not dyspneic HEAD: Normocephalic. EYES: Pupils equal round No scleral icterus. ENT: Mucous membranes moist. NECK: Trachea midline. CARDIOVASCULAR: Regular rate and rhythm without murmurs RESPIRATORY: Clear to auscultation however diminished. Patient receiving breathing treatment. Speaks full sentences Breath sounds equal bilaterally. No wheezes, rales, or rhonchi. GASTROINTESTINAL: Abdomen soft, non-tender EXTREMITIES: No gross deformities. NEURO: AOx4. SKIN: Warm and dry PSYCH: Not anxious, is cooperative Initial Vital Signs Initial Vital Signs: Vital Signs Temperature 98.1 F 06/27/21 08:56 Pulse Rate 102 H 06/27/21 08:56 Respiratory Rate 20 06/27/21 08:56 Blood Pressure 139/100 H 06/27/21 08:56 Pulse Oximetry 96 06/27/21 08:56 Oxygen Delivery Method 06/27/21 08:56 Course Course Course Narrative: No new issues during course of stay Orders Ordered: Discontinued Medications Albuterol (Albuterol Hfa Mdi 60 Puff/8 Gm Inhaler) 2 puff INH NOW ONE Stop: 06/27/21 09:09 Last Admin: 06/27/21 09:21 Dose: Not Given Documented By: HEATHER Albuterol (Albuterol Hfa Prepack) 1 box MISC SEEINSTR ONE Stop: 06/27/21 09:16 Last Admin: 06/27/21 09:29 Dose: 1 box Documented By: KATHY Albuterol/Ipratropium (Albuterol/Ipratropium 3 Ml Ampul) 3 ml INH NOW ONE Stop: 06/27/21 08:52 Last Admin: 06/27/21 08:56 Dose: 3 ml Documented By: KATHY Prednisone (Prednisone 20 Mg Tablet) 40 mg PO NOW ONE Stop: 06/27/21 09:09 Last Admin: 06/27/21 09:29 Dose: 40 mg Documented By: HEATHER Reevaluation(s) Reevaluation #1: Patient feeling much better after breathing treatment. He desires discharge home Time: 09:35 Vital Signs Vital signs: Vital Signs - 8 hr 06/27/21 08:56 06/27/21 08:57 Temperature 98.1 F Pulse Rate 102 H Respiratory Rate 20 Blood Pressure 139/100 H Pulse Oximetry 96 97 MDM - Asthma Differential Diagnosis Differential diagnosis: Likely Acute exacerbation and Acute asthmatic bronchitis ECG Data Interpretation: Sinus rhythm no ST elevation or depression. Rate 91. MDM Narrative Medical decision making narrative: Appropriate for discharge home. No blood work or imaging indicated. Patient has had multiple visits here for the same complaint of asthma exacerbation. His environment is a large factor of his triggers. Also available resources. Return precautions reviewed with him. He desires discharge home. Ventolin inhaler provided to him to take home. Also prescription for Medrol Dosepak Discharge Plan Departure Patient Disposition: Home Clinical Impression: Asthma Instructions: DI for Asthma -- Adult Activity Restrictions/Additional Instructions: No smoking. Continue as medication at home. See family doctor/clinic in a week for re-evaluation. Continue steroid pack tomorrow. Return if worsening questions or concerns. Prescriptions have been sent to your [facility] pharmacy here in town. Prescriptions: New methylprednisolone [Medrol (Ozzie)] 4 mg tablets,dose pack See Rx Instructions PO .COMPLEX Qty: 21 0RF Rx Instructions: orally per package directions albuterol sulfate [Ventolin HFA] 90 mcg/actuation HFA aerosol inhaler 2 inh inhalation QID PRN (Reason: shortness of breath or wheezing) Qty: 6.7 0RF No Action mupirocin 2 % ointment 1 applic topical BID 14 Days Qty: 22 1RF albuterol sulfate 90 mcg/actuation HFA aerosol inhaler 2 puff inhalation Q6H PRN (Reason: shortness of breath or wheezing) Qty: 6.7 3RF albuterol sulfate 90 mcg/actuation HFA aerosol inhaler 2 puff inhalation Q6H PRN (Reason: shortness of breath or wheezing) Qty: 6.7 3RF sulfamethoxazole-trimethoprim 800 MG/160 MG tablet 1 tab PO BID 7 Days Qty: 0 0RF albuterol sulfate [Ventolin HFA] 90 mcg/actuation HFA aerosol inhaler 2 puff INHALATION Q4-6H PRN (Reason: shortness of breath or wheezing) Qty: 18 0RF prednisone 10 mg tablet 10 mg PO DAILY Qty: 30 0RF Rx Instructions: day 1-3: 40 mg once a day day 4-6: 30 mg once a day day 7-9: 20 mg once a day day 10-12: 10 mg once a day prednisone 20 mg tablet 40 mg PO DAILY Qty: 10 0RF albuterol sulfate 90 mcg/actuation HFA aerosol inhaler 2 puff INHALATION Q4-6H PRN (Reason: shortness of breath or wheezing) Qty: 8.5 0RF benzonatate [Tessalon Perles] 100 mg capsule 100 mg PO TID PRN (Reason: cough) Qty: 20 0RF methylprednisolone [Medrol (Ozzie)] 4 mg tablets,dose pack See Rx Instructions .ROUTE .COMPLEX Qty: 21 0RF Rx Instructions: orally per package directions albuterol sulfate [Ventolin HFA] 90 mcg/actuation HFA aerosol inhaler 2 inhalation INHALATION QID PRN (Reason: shortness of breath or wheezing) Qty: 6.7 0RF doxycycline hyclate 100 mg capsule 100 mg PO BID Qty: 20 0RF prednisone 20 mg tablet 40 mg PO DAILY Qty: 10 0RF albuterol sulfate 90 mcg/actuation HFA aerosol inhaler 2 puff INHALATION Q4-6H PRN (Reason: shortness of breath or wheezing) Qty: 8.5 0RF prednisone 20 mg tablet 40 mg PO DAILY Qty: 10 0RF
--- NOTE | 2021-06-27 09:24 | PC.NURSE ---
pt has 2 sores on his face i think these are from the acid in the air they are scabbed over and not draining, no swelling noted.
[2021-06-27] MEDS: ALBUTEROL HFA PREPACK 1 BOX MISC (09:29)
[2021-06-27] MEDS: predniSONE 20 MG TABLET 40 MG PO (09:29)
[2021-06-27 09:43] VITALS: BP 148/91; PULSE 77; RESP 18; O2SAT 93
== END 2021-06-27 09:43 | disposition home or self-care (01) ==
PROVIDERS: Emergency Provider Emergency Medicine
DX: J45.909 Unspecified asthma, uncomplicated (principal); R03.0 Elevated blood-pressure reading, without diagnosis of hypertension; F17.210 Nicotine dependence, cigarettes, uncomplicated
CPT/HCPCS: 93005; 93010; 94640; 99284; A9270

== ENCOUNTER 2021-07-07 05:57 | Emergency (ER) | payer MEDICARE, MEDICAID, SELFPAY ==
[2021-07-07 06:05] VITALS: BP 152/90; PULSE 110; RESP 22; TEMP 36.6; O2SAT 96
--- NOTE | 2021-07-07 06:10 | ED_ITS ---
HPI - SOB/Dyspnea <Milagro Collins, DO - Last Filed: 07/12/21 08:48> General Chief Complaint: Upper Respiratory Symptoms Stated Complaint: need nibulizer treatment Time Seen by Provider: 07/07/21 06:10 Source: patient Mode of arrival: Ambulatory Limitations: no limitations History of Present Illness HPI Narrative: This is a 46-year-old male comes in with history of asthma and asthma exacerb ation. Patient states he was here the 27 of June for similar symptoms and believes he is having asthma exacerbation. He states it feels similar to prior episodes. He states that he has run out of his albuterol. He was given a prescription for prednisone but has not obtained it. He is reported to be homeless there may be some barriers to obtaining his medication. He denies fevers or chills. He has tightness of his chest denies any active chest pain. No nausea or vomiting, no GI or urinary symptoms. No new swelling of extremities. Patient states will allergies do not seem to be a problem for him. Patient does continue to use tobacco, he denies any other daily medications or medical issues. Patient is allergic to penicillin and states he was intubated when he received penicillin in the past. Patient has not had any intubations for asthma, he has not required BiPAP in the past. He she does drink alcohol, uses marijuana denies other illicit. He does not currently a regular PCP have a regular PCP. Related Data Previous Rx's Medication Instructions Recorded sulfamethoxazole 800 1 tab PO BID 7 Days #0 tab 12/18/15 mg-trimethoprim 160 mg tablet albuterol sulfate 90 mcg/actuation 2 puff INHALATION Q4-6H PRN #18 03/23/18 aerosol inhaler (Ventolin HFA) gram albuterol sulfate 90 mcg/actuation 2 puff INHALATION Q4-6H PRN #8.5 10/20/20 aerosol inhaler gram prednisone 20 mg tablet 40 mg PO DAILY #10 tab 10/20/20 albuterol sulfate 90 mcg/actuation 2 puff INHALATION Q6H PRN #6.7 g 11/07/20 aerosol inhaler mupirocin 2 % topical ointment 1 applic TOPICAL BID 14 Days #22 g 11/07/20 albuterol sulfate 90 mcg/actuation 2 inhalation INHALATION QID PRN 12/15/20 aerosol inhaler (Ventolin HFA) #6.7 gram benzonatate 100 mg capsule 100 mg PO TID PRN #20 cap 12/15/20 (Tessalon Perles) methylprednisolone 4 mg tablets in See Rx Instructions .ROUTE 12/15/20 a dose pack (Medrol (Ozzie)) .COMPLEX #21 each albuterol sulfate 90 mcg/actuation 2 puff INHALATION Q6H PRN #6.7 g 01/20/21 aerosol inhaler albuterol sulfate 90 mcg/actuation 2 puff INHALATION Q4-6H PRN #8.5 04/10/21 aerosol inhaler gram doxycycline hyclate 100 mg capsule 100 mg PO BID #20 cap 04/10/21 prednisone 20 mg tablet 40 mg PO DAILY #10 tab 04/10/21 prednisone 20 mg tablet 40 mg PO DAILY #10 tab 05/27/21 albuterol sulfate 90 mcg/actuation 2 inh INHALATION QID PRN #6.7 g 06/27/21 aerosol inhaler (Ventolin HFA) methylprednisolone 4 mg tablets in See Rx Instructions PO .COMPLEX 06/27/21 a dose pack (Medrol (Ozzie)) #21 ea Allergies Allergy/AdvReac Type Severity Reaction Status Date / Time Penicillins Allergy Severe Unresponsiv Verified 05/27/21 12:01 e Review of Systems <Milagro Collins DO - Last Filed: 07/12/21 08:48> Review of Systems ROS Unobtainable: All systems reviewed & are unremarkable except as noted in HPI and below Patient History <Milagro Collins DO - Last Filed: 07/12/21 08:48> Medical History Asthma Social History Smoking Status: Current every day smoker Smoking Status: Current every day smoker tobacco type: cigarettes and vaping alcohol intake frequency: 3 or more drinks per day Substance Use Type: marijuana Exam <Milagro Collins DO - Last Filed: 07/12/21 08:48> Narrative Exam Narrative: GENERAL: Alert and oriented x three, well-nourished male in moderate distress. HEENT: Head normocephalic, atraumatic, EOMI, pupils reactive, face symmetric, moist mucous membranes NECK: Supple, full range of motion CARDIOVASCULAR: Tachycardic but regular rate and rhythm without murmurs, rubs or gallops. RESPIRATORY: Breath sounds decreased bilaterally with minimal air movement, minimal to no wheeze, no rales or rhonchi. Positive for tachypnea. Positive f or accessory muscle use. Patient speaks in 3-4 word sentences. ABDOMEN: Soft, nontender. Normoactive bowel sounds all 4 quadrants. No guarding or rebound, rigidity, no mass : No CVA tenderness EXTREMITIES: Normal range of motion, no clubbing or edema. Neurovascularly intact NEUROLOGICAL: Cranial nerves II through XII grossly intact. Moving all extremities SKIN: Warm, dry, no petechiae, no rashes or lesions. Initial Vital Signs Initial Vital Signs: Vital Signs Temperature 98 F 07/07/21 06:05 Pulse Rate 110 H 07/07/21 06:05 Respiratory Rate 07/07/21 06:05 Blood Pressure 152/90 H 07/07/21 06:05 Pulse Oximetry 96 07/07/21 06:05 <Braden Herrera, DO - Last Filed: 07/07/21 07:41> Initial Vital Signs Initial Vital Signs: Vital Signs Temperature 98 F 07/07/21 06:05 Pulse Rate 110 H 07/07/21 06:05 Respiratory Rate 07/07/21 06:05 Blood Pressure 152/90 H 07/07/21 06:05 Pulse Oximetry 96 07/07/21 06:05 Course <Milagro Collins, DO - Last Filed: 07/12/21 08:48> Orders Ordered: Discontinued Medications Albuterol (Albuterol 2.5 Mg/3 Ml Neb (Adult)) 5 mg INH NOW ONE Stop: 07/07/21 06:15 Last Admin: 07/07/21 06:18 Dose: 5 mg Documented by: DUANEOX Albuterol (Albuterol Hfa Mdi 60 Puff/8 Gm Inhaler) 1 puff INH NOW ONE Stop: 07/07/21 07:24 Last Admin: 07/07/21 08:08 Dose: 1 puff Documented by: KRISTA Albuterol/Ipratropium (Albuterol/Ipratropium 3 Ml Ampul) 3 ml INH NOW ONE Stop: 07/07/21 06:15 Last Admin: 07/07/21 06:18 Dose: 3 ml Documented by: DUANEOX Methylprednisolone (Methylprednisolone 125 Mg/2 Ml Vial) 125 mg IV NOW ONE Stop: 07/07/21 06:11 Last Admin: 07/07/21 06:28 Dose: 125 mg Documented by: [email or web address] Reevaluation(s) Reevaluation #1: Patient has improved air movement although not complete normalization. Patient states he is feeling much better. Discussed with patient he is homeless, there are some various to access to care but he does not wish to have social Work evaluate or even contact him via phone although he does have a working cell phone. Patient states he can not get to the pharmacy to fill his medications. Discussed with patient will have recheck to make sure he is continuing to improve. Time: 06:59 Vital Signs Vital signs: Vital Signs - 8 hr 07/07/21 06:05 07/07/21 06:20 Temperature 98 F Pulse Rate 110 H 110 H Respiratory Rate 22 16 Blood Pressure 152/90 H Pulse Oximetry 96 96 <Braden Herrera DO - Last Filed: 07/07/21 07:41> Orders Ordered: Discontinued Medications Albuterol (Albuterol 2.5 Mg/3 Ml Neb (Adult)) 5 mg INH NOW ONE Stop: 07/07/21 06:15 Last Admin: 07/07/21 06:18 Dose: 5 mg Documented by: DUANEOX Albuterol (Albuterol Hfa Mdi 60 Puff/8 Gm Inhaler) 1 puff INH NOW ONE Stop: 07/07/21 07:24 Last Admin: 07/07/21 08:08 Dose: 1 puff Documented by: KRISTA Albuterol/Ipratropium (Albuterol/Ipratropium 3 Ml Ampul) 3 ml INH NOW ONE Stop: 07/07/21 06:15 Last Admin: 07/07/21 06:18 Dose: 3 ml Documented by: DUANEOX Methylprednisolone (Methylprednisolone 125 Mg/2 Ml Vial) 125 mg IV NOW ONE Stop: 07/07/21 06:11 Last Admin: 07/07/21 06:28 Dose: 125 mg Documented by: [email or web address] Vital Signs Vital signs: Vital Signs - 8 hr 07/07/21 06:05 07/07/21 06:20 Temperature 98 F Pulse Rate 110 H 110 H Respiratory Rate 22 16 Blood Pressure 152/90 H Pulse Oximetry 96 96 MDM - SOB/Dyspnea <Milagro Collins, - Last Filed: 07/12/21 08:48> Lab Data Result diagrams: 07/07/21 06:22 07/07/21 06:22 Labs: Lab Results 07/07/21 07/07/21 07/07/21 Range/Units 06:22 06:22 06:25 WBC 4.8 (4.5-11.0) X10^3/uL RBC 4.67 (4.5-5.9) X10^6/uL Hgb 15.6 (13.5-17.5) g/dL Hct 44.0 (41-53) % MCV 94.3 (80-100) fL MCH 33.4 (26-34) PG MCHC 35.4 (30-36) % RDW 12.3 (11.6-14.8) % Plt Count 287 (150-400) X10^3/uL Neut % (Auto) 48.5 L (50-75) % Lymph % (Auto) 33.9 (25-40) % [place] % (Auto) 12.8 (3-14) % Eos % (Auto) 3.7 (2-4) % Baso % (Auto) 1.1 (0-2) % Neut # (Auto) 2300 (2418-3930) /uL Lymph # (Auto) 1600 (5554-6142) /uL [place] # (Auto) 600 (0-900) /uL Eos # (Auto) 200 (0-450) /uL Baso # (Auto) 100 (0-100) /uL Sodium 139 (137-145) mmol/L Potassium 4.5 (3.4-5.1) mmol/L Chloride 105 (98-107) mmol/L Carbon Dioxide 30 (22-32) mmol/L BUN 17 (9-20) mg/dL Creatinine 0.86 (0.66-1.25) mg/dL Estimated GFR > 60 (>60) mL/min BUN/Creatinine Ratio 19.8 (6-22) Glucose 95 (70-100) mg/dL Calcium 8.8 (8.4-10.2) mg/dL SARS-CoV-2 (PCR) Negative (Negative) MDM Narrative Medical decision making narrative: This is a 46-year-old male with known asthma. Patient is quite tight, had improvement with DuoNeb. Patient is not adherent to his medications secondary to excess issues, being homeless although he states he can get his medications from the pharmacy but he has not. He defers any INVESTIGATIVE REPORTER consultation by phone or in person. <Braden Sharon, DO - Last Filed: 07/07/21 07:41> Lab Data Labs: Lab Results 07/07/21 07/07/21 07/07/21 Range/Units 06:22 06:22 06:25 WBC 4.8 (4.5-11.0) X10^3/uL RBC 4.67 (4.5-5.9) X10^6/uL Hgb 15.6 (13.5-17.5) g/dL Hct 44.0 (41-53) % MCV 94.3 (80-100) fL MCH 33.4 (26-34) PG MCHC 35.4 (30-36) % RDW 12.3 (11.6-14.8) % Plt Count 287 (150-400) X10^3/uL Neut % (Auto) 48.5 L (50-75) % Lymph % (Auto) 33.9 (25-40) % [place] % (Auto) 12.8 (3-14) % Eos % (Auto) 3.7 (2-4) % Baso % (Auto) 1.1 (0-2) % Neut # (Auto) 2300 (7833-7525) /uL Lymph # (Auto) 1600 (2356-3756) /uL [place] # (Auto) 600 (0-900) /uL Eos # (Auto) 200 (0-450) /uL Baso # (Auto) 100 (0-100) /uL Sodium 139 (137-145) mmol/L Potassium 4.5 (3.4-5.1) mmol/L Chloride 105 (98-107) mmol/L Carbon Dioxide 30 (22-32) mmol/L BUN 17 (9-20) mg/dL Creatinine 0.86 (0.66-1.25) mg/dL Estimated GFR > 60 (>60) mL/min BUN/Creatinine Ratio 19.8 (6-22) Glucose 95 (70-100) mg/dL Calcium 8.8 (8.4-10.2) mg/dL SARS-CoV-2 (PCR) Negative (Negative) MDM Narrative Medical decision making narrative: This is a 46-year-old male with known asthma. Patient is quite tight, had improvement with DuoNeb. Patient is not adherent to his medications secondary to excess issues, being homeless although he states he can get his medications from the pharmacy but he has not. He defers any INVESTIGATIVE REPORTER consultation by phone or in person. Dr Herrera: Received turned over. Review patient's history physical exam introduced myself to the patient. Patient now is not tachypneic. Still has a cough. Not hypoxic. Has clear lung sounds bilaterally. Has prescriptions are ready at the pharmacy from his last visit. He states that he cannot refill his inhaler until later this month but he was given inhaler today. He can fill the steroids. He states he does feel well enough to go home. He was given return precautions. He expressed understanding and agreement. Discharge Plan Departure Patient Disposition: Home Clinical Impression: Asthma exacerbation Instructions: Asthma -- Adult Activity Restrictions/Additional Instructions: I recommend that you fill the prescriptions that were given during her last emergency department visit and take them directed. Return to the emergency department for any new symptoms. Prescriptions: No Action mupirocin 2 % ointment 1 applic topical BID 14 Days Qty: 22 1RF albuterol sulfate 90 mcg/actuation HFA aerosol inhaler 2 puff inhalation Q6H PRN (Reason: shortness of breath or wheezing) Qty: 6.7 3RF albuterol sulfate 90 mcg/actuation HFA aerosol inhaler 2 puff inhalation Q6H PRN (Reason: shortness of breath or wheezing) Qty: 6.7 3RF sulfamethoxazole-trimethoprim 800 MG/160 MG tablet 1 tab PO BID 7 Days Qty: 0 0RF albuterol sulfate [Ventolin HFA] 90 mcg/actuation HFA aerosol inhaler 2 puff INHALATION Q4-6H PRN (Reason: shortness of breath or wheezing) Qty: 18 0RF prednisone 20 mg tablet 40 mg PO DAILY Qty: 10 0RF albuterol sulfate 90 mcg/actuation HFA aerosol inhaler 2 puff INHALATION Q4-6H PRN (Reason: shortness of breath or wheezing) Qty: 8.5 0RF benzonatate [Tessalon Perles] 100 mg capsule 100 mg PO TID PRN (Reason: cough) Qty: 20 0RF methylprednisolone [Medrol (Ozzie)] 4 mg tablets,dose pack See Rx Instructions .ROUTE .COMPLEX Qty: 21 0RF Rx Instructions: orally per package directions albuterol sulfate [Ventolin HFA] 90 mcg/actuation HFA aerosol inhaler 2 inhalation INHALATION QID PRN (Reason: shortness of breath or wheezing) Q ty: 6.7 0RF doxycycline hyclate 100 mg capsule 100 mg PO BID Qty: 20 0RF prednisone 20 mg tablet 40 mg PO DAILY Qty: 10 0RF albuterol sulfate 90 mcg/actuation HFA aerosol inhaler 2 puff INHALATION Q4-6H PRN (Reason: shortness of breath or wheezing) Qty: 8.5 0RF prednisone 20 mg tablet 40 mg PO DAILY Qty: 10 0RF methylprednisolone [Medrol (Ozzie)] 4 mg tablets,dose pack See Rx Instructions PO .COMPLEX Qty: 21 0RF Rx Instructions: orally per package directions albuterol sulfate [Ventolin HFA] 90 mcg/actuation HFA aerosol inhaler 2 inh inhalation QID PRN (Reason: shortness of breath or wheezing) Qty: 6.7 0RF
--- NOTE | 2021-07-07 06:12 | DI.RAD.S_ITS ---
PROCEDURE: XR CHEST 1V INDICATIONS: sob, asthma TECHNIQUE: One view of the chest was acquired. COMPARISON: None. FINDINGS: Surgical changes and devices: None. Lungs and pleura: Lungs are clear. No pleural effusions or pneumothorax. Mediastinum: Mediastinal contours appear normal. Heart size is normal. Lungs hyperinflated consistent with reported COPD. Bones and chest wall: No suspicious bony lesions. Overlying soft tissues appear unremarkable. IMPRESSION: No acute cardiopulmonary disease process. Dictated by: Micki Islas MD, PhD on 07/07/2021 at 7:42 Approved by: Micki Islas MD, PhD on 07/07/2021 at 7:43
[2021-07-07] MEDS: ALBUTEROL 2.5 MG/3 ML NEB (ADULT) 5 MG INH (06:18)
[2021-07-07] MEDS: ALBUTEROL/IPRATROPIUM 3 ML AMPUL INH (06:18)
[2021-07-07 06:20] VITALS: PULSE 110; RESP 16; O2SAT 96
[2021-07-07] MEDS: methylPREDNISolone 125 MG/2 ML VIAL IV (06:28)
[2021-07-07 06:31] LABS: Add Manual Diff / Slide Review NO; Basophils Absolute Auto 100 /uL (0-100); Basophils Percent Auto 1.1 % (0-2); Eosinophils Absolute Auto 200 /uL (0-450); Eosinophils Percent Auto 3.7 % (2-4); Hemoglobin 15.6 g/dL (13.5-17.5); Lymphocytes Absolute Auto 1600 /uL (1100-4500); Lymphocytes Percent Auto 33.9 % (25-40); Mean Corpuscular HGB Conc 35.4 % (30-36); Mean Corpuscular Hemoglobin 33.4 PG (26-34); Mean Corpuscular Volume 94.3 fL (80-100); Monocytes Absolute Auto 600 /uL (0-900); Monocytes Percent Auto 12.8 % (3-14); Neutrophils Absolute Auto 2300 /uL (1500-7000); Neutrophils Percent Auto 48.5 % (50-75); Platelet Count 287 X10^3/uL (150-400); Red Blood Cell Count 4.67 X10^6/uL (4.5-5.9); Red Cell Distribution Width 12.3 % (11.6-14.8); White Blood Cell Count 4.8 X10^3/uL (4.5-11.0)
[2021-07-07 06:54] LABS: BUN Creatinine Ratio 19.8 (6-22); Blood Urea Nitrogen 17 mg/dL (9-20); Calcium 8.8 mg/dL (8.4-10.2); Carbon Dioxide 30 mmol/L (22-32); Chloride 105 mmol/L (98-107); Estimated Glomerular Filt Rate > 60 mL/min (>60); Glucose 95 mg/dL (70-100); HEMOLYSIS < 15 (0-50); Potassium 4.5 mmol/L (3.4-5.1); Sodium 139 mmol/L (137-145)
[2021-07-07 06:54] LABS: COVID19 -Nasal RAPID Negative (Negative)
[2021-07-07 07:41] VITALS: BP 129/89; PULSE 85; RESP 18; O2SAT 91
[2021-07-07 08:02] VITALS: BP 130/91; PULSE 80; RESP 16; O2SAT 94
[2021-07-07] MEDS: ALBUTEROL HFA MDI 60 PUFF/8 GM INHALER INH (08:08)
[2021-07-07 08:57] VITALS: O2SAT 95
== END 2021-07-07 08:25 | disposition home or self-care (01) ==
PROVIDERS: Emergency Medicine; Emergency Provider Emergency Medicine
DX: J45.901 Unspecified asthma with (acute) exacerbation (principal); Z20.822 Contact with and (suspected) exposure to COVID-19
CPT/HCPCS: 71045; 80048; 85025; 87635; 94640; 96374; 99284; C9803; A9270; J2930; J7613

== ENCOUNTER 2021-07-15 06:49 | Emergency (ER) | payer MEDICARE, MEDICAID, SELFPAY ==
[2021-07-15 07:00] VITALS: BP 141/95; PULSE 119; RESP 21; TEMP 36.6; O2SAT 94
[2021-07-15] MEDS: ALBUTEROL 2.5 MG/3 ML NEB (ADULT) INH (07:21)
[2021-07-15] MEDS: ALBUTEROL/IPRATROPIUM 3 ML AMPUL INH (07:31)
--- NOTE | 2021-07-15 07:36 | ED.SOB ---
HPI - SOB/Dyspnea General Chief Complaint: Upper Respiratory Symptoms Stated Complaint: Needs nebulizer treatment- SOB Time Seen by Provider: 07/15/21 07:11 Source: patient Mode of arrival: Ambulatory Limitations: no limitations History of Present Illness HPI Narrative: Patient is a 46-year-old male who has history of asthma. He has been in frequently for asthma exacerbation. He says he cannot feel his Ventolin inhaler till July 20 which is confirmed by the [facility] at showed me. He says he gets the albuterol inhaler position his pocket but unfortunately it discharges and runs out frequently. He was on Medrol Dosepak beginning of the month but actually did not start taking it in till this week and he finished it yesterday. He said did not help very much. Prednisone helps more. He is supposed to be taking Singulair as well not sure that he is Advair. He has not had any fever or chills no productive cough. He says that the environment is making his asthma worse. This morning he woke up and is could not breathe. He is overall feeling better after albuterol nebulizer. Patient was seen evaluated here on July 07 for the same. At that time he had a chest x-ray which was negative. He was also here for the same. The patient lives outside, but has access to have medication. Related Data Previous Rx's Medication Instructions Recorded sulfamethoxazole 800 1 tab PO BID 7 Days #0 tab 12/18/15 mg-trimethoprim 160 mg tablet albuterol sulfate 90 mcg/actuation 2 puff INHALATION Q4-6H PRN #18 03/23/18 aerosol inhaler (Ventolin HFA) gram albuterol sulfate 90 mcg/actuation 2 puff INHALATION Q4-6H PRN #8.5 10/20/20 aerosol inhaler gram prednisone 20 mg tablet 40 mg PO DAILY #10 tab 10/20/20 albuterol sulfate 90 mcg/actuation 2 puff INHALATION Q6H PRN #6.7 g 11/07/20 aerosol inhaler mupirocin 2 % topical ointment 1 applic TOPICAL BID 14 Days #22 g 11/07/20 albuterol sulfate 90 mcg/actuation 2 inhalation INHALATION QID PRN 12/15/20 aerosol inhaler (Ventolin HFA) #6.7 gram benzonatate 100 mg capsule 100 mg PO TID PRN #20 cap 12/15/20 (Tessalon Perles) methylprednisolone 4 mg tablets in See Rx Instructions .ROUTE 12/15/20 a dose pack (Medrol (Ozzie)) .COMPLEX #21 each albuterol sulfate 90 mcg/actuation 2 puff INHALATION Q6H PRN #6.7 g 01/20/21 aerosol inhaler albuterol sulfate 90 mcg/actuation 2 puff INHALATION Q4-6H PRN #8.5 04/10/21 aerosol inhaler gram doxycycline hyclate 100 mg capsule 100 mg PO BID #20 cap 04/10/21 prednisone 20 mg tablet 40 mg PO DAILY #10 tab 04/10/21 prednisone 20 mg tablet 40 mg PO DAILY #10 tab 05/27/21 albuterol sulfate 90 mcg/actuation 2 inh INHALATION QID PRN #6.7 g 06/27/21 aerosol inhaler (Ventolin HFA) methylprednisolone 4 mg tablets in See Rx Instructions PO .COMPLEX 06/27/21 a dose pack (Medrol (Ozzie)) #21 ea prednisone 10 mg tablet 10 mg PO DAILY #30 tab 07/15/21 Allergies Allergy/AdvReac Type Severity Reaction Status Date / Time Penicillins Allergy Severe Unresponsiv Verified 05/27/21 12:01 e Review of Systems Review of Systems Narrative: GENERAL: Denies chills, fatigue, malaise, fever, sweats, travel HEENT: Denies sinus pain, ear pain, sore throat, difficulty swallowing, neck pain RESPIRATORY: See HPI CARDIOVASCULAR: Denies chest pain, palpitations, orthopnea, edema GASTROINTESTINAL: Denies nausea, vomiting, abdominal pain, diarrhea, constipation, melena. : Denies dysuria, frequency, incontinence, hematuria, urinary retention, flank pain. MUSCULOSKELETAL: Denies weakness, joint pain, or bony pain SKIN: No rash, no erythema, no pruritus NEUROLOGIC: Denies weakness, dizziness, headache, numbness, change in speech, confusion PSYCHIATRIC: No concerning psychosocial issues. 12 point review of systems is negative except for those stated above and HPI Patient History Medical History Asthma Social History Smoking Status: Current every day smoker Smoking Status: Current every day smoker tobacco type: cigarettes and vaping alcohol intake frequency: 3 or more drinks per day Substance Use Type: marijuana Exam Initial Vital Signs Initial Vital Signs: Vital Signs Temperature 97.8 F 07/15/21 07:00 Pulse Rate 119 H 07/15/21 07:00 Respiratory Rate 21 07/15/21 07:00 Blood Pressure 141/95 H 07/15/21 07:00 Pulse Oximetry 94 07/15/21 07:00 GENERAL: Alert 46-year-old male he in moderate respiratory distress HEENT: Head atraumatic,EOMI, pupils reactive, face symmetric, [moist] mucous membranes CARDIOVASCULAR: Regular rate and rhythm without murmurs, rubs or gallops. RESPIRATORY: Decreased breath sounds bilaterally ABDOMEN: Soft, nontender. Normoactive bowel sounds all 4 quadrants. No guarding or rebound. EXTREMITIES: Normal range of motion, no clubbing or edema. Neurovascularly intact NEUROLOGICAL: Alert and oriented x4.Normal gait and speech. SKIN: Warm, dry, no laceration, no petechiae, no rashes or lesions. Course Orders Ordered: Discontinued Medications Albuterol (Albuterol 2.5 Mg/3 Ml Neb (Adult)) 2.5 mg INH NOW ONE Stop: 07/15/21 07:15 Last Admin: 07/15/21 07:21 Dose: 2.5 mg Documented by: HAIDER Albuterol (Albuterol Hfa Prepack) 1 box MISC SEEINSTR ONE Stop: 07/15/21 08:04 Last Admin: 07/15/21 08:11 Dose: 1 box Documented by: LESVIA Albuterol/Ipratropium (Albuterol/Ipratropium 3 Ml Ampul) 3 ml INH NOW ONE Stop: 07/15/21 07:29 Last Admin: 07/15/21 07:31 Dose: 3 ml Documented by: HAIDER Vital Signs Vital signs: Vital Signs - 8 hr 07/15/21 08:15 Pulse Rate 107 H Respiratory Rate 14 Blood Pressure [Right Arm] 147/84 H Pulse Oximetry 93 MDM - SOB/Dyspnea MDM Narrative Medical decision making narrative: The patient is given albuterol nebulizer and DuoNeb he does improved. He is also given a prepack inhaler to go home with. He can have his Ventolin inhaler which he says does not discharge in his pocket on July 20. He has got Singulair and Symbicort. I encouraged him to take both of these medications to help prevent his flares. I will send him home on a long taper prednisone as well. At this time he does not have fever he had a negative chest x-ray last week. At this time I see no need for further workup however he does need to take his medication as prescribed to get better control of his asthma. Discharge Plan Departure Patient Disposition: Home Clinical Impression: Asthma exacerbation Instructions: Asthma -- Adult Activity Restrictions/Additional Instructions: *You have been diagnosed with asthma exacerbation *What to do: At this time he needs to take her medications as directed they will help prevent your flares. *Continue to take medications as directed Prednisone 40 mg for 3 days, 30 mg for 3 days, 20 mg for 3 days and 10 mg for 3 days--> SENT TO [facility] Montelukast 10 mg once a day Advair daily (the purple powdered disc) *Follow up with your primary care provider in 2-3 days or call [phone] *Return to ER if you should have increasing shortness of breath, fever, chest pain any new, worsening or concerning symptoms Prescriptions: New prednisone 10 mg tablet 10 mg PO DAILY Qty: 30 0RF Rx Instructions: day 1-3: 40 mg once a day day 4-6: 30 mg once a day day 7-9: 20 mg once a day day 10-12: 10 mg once a day No Action mupirocin 2 % ointment 1 applic topical BID 14 Days Qty: 22 1RF albuterol sulfate 90 mcg/actuation HFA aerosol inhaler 2 puff inhalation Q6H PRN (Reason: shortness of breath or wheezing) Qty: 6.7 3RF albuterol sulfate 90 mcg/actuation HFA aerosol inhaler 2 puff inhalation Q6H PRN (Reason: shortness of breath or wheezing) Qty: 6.7 3RF sulfamethoxazole-trimethoprim 800 MG/160 MG tablet 1 tab PO BID 7 Days Qty: 0 0RF albuterol sulfate [Ventolin HFA] 90 mcg/actuation HFA aerosol inhaler 2 puff INHALATION Q4-6H PRN (Reason: shortness of breath or wheezing) Qty: 18 0RF prednisone 20 mg tablet 40 mg PO DAILY Qty: 10 0RF albuterol sulfate 90 mcg/actuation HFA aerosol inhaler 2 puff INHALATION Q4-6H PRN (Reason: shortness of breath or wheezing) Qty: 8.5 0RF benzonatate [Tessalon Perles] 100 mg capsule 100 mg PO TID PRN (Reason: cough) Qty: 20 0RF methylprednisolone [Medrol (Ozzie)] 4 mg tablets,dose pack See Rx Instructions .ROUTE .COMPLEX Qty: 21 0RF Rx Instructions: orally per package directions albuterol sulfate [Ventolin HFA] 90 mcg/actuation HFA aerosol inhaler 2 inhalation INHALATION QID PRN (Reason: shortness of breath or wheezing) Qty: 6.7 0RF doxycycline hyclate 100 mg capsule 100 mg PO BID Qty: 20 0RF prednisone 20 mg tablet 40 mg PO DAILY Qty: 10 0RF albuterol sulfate 90 mcg/actuation HFA aerosol inhaler 2 puff INHALATION Q4-6H PRN (Reason: shortness of breath or wheezing) Qty: 8.5 0RF prednisone 20 mg tablet 40 mg PO DAILY Qty: 10 0RF methylprednisolone [Medrol (Ozzie)] 4 mg tablets,dose pack See Rx Instructions PO .COMPLEX Qty: 21 0RF Rx Instructions: orally per package directions albuterol sulfate [Ventolin HFA] 90 mcg/actuation HFA aerosol inhaler 2 inh inhalation QID PRN (Reason: shortness of breath or wheezing) Qty: 6.7 0RF
--- NOTE | 2021-07-15 08:06 | PC.NURSE ---
patient has run out of his inhaler and came in to the ED for asthma exacerbation. He is talking in full sentences at baseline without having to catch his breathe but he does report feeling more short of breathe than usual. He was given a breathing treatment by RT and reports feeling better.
[2021-07-15] MEDS: ALBUTEROL HFA PREPACK 1 BOX MISC (08:11)
[2021-07-15 08:15] VITALS: BP 147/84; PULSE 107; RESP 14; O2SAT 93
== END 2021-07-15 08:18 | disposition home or self-care (01) ==
PROVIDERS: Emergency Provider Emergency Medicine
DX: J45.901 Unspecified asthma with (acute) exacerbation (principal)
CPT/HCPCS: 99283; J7613

== ENCOUNTER 2021-08-18 11:49 | Emergency (ER) | payer MEDICARE, MEDICAID, SELFPAY ==
[2021-08-18 11:57] VITALS: BP 174/100; PULSE 101; RESP 24; TEMP 36.6; O2SAT 96; BMI 22.8
--- NOTE | 2021-08-18 12:06 | PC.NURSE ---
Pt reports SOB and intermittent cough since yesterday. Bilateral expiratory wheezes throughout all posterior villasenor. Pt reports hx of asthma and being out of my meds. Pt also reports diarrhea, runny nose, and a headache.
[2021-08-18 12:07] VITALS: PULSE 94; RESP 22; O2SAT 99
--- NOTE | 2021-08-18 12:10 | PC.NURSE ---
1207: RT in room.
[2021-08-18] MEDS: IPRATROPIUM 0.5 MG/2.5 ML NEB INH (12:15)
[2021-08-18] MEDS: ALBUTEROL 2.5 MG/3 ML NEB (ADULT) 5 MG INH (12:15)
[2021-08-18 12:16] VITALS: PULSE 95; RESP 22; O2SAT 97
[2021-08-18 12:26] LABS: COVID19 -Nasal RAPID Negative (Negative)
--- NOTE | 2021-08-18 12:32 | CM.SWNOTE ---
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 Patient is 46 y/o male with hx of 12 ED encounters within the last 12 months, a majority of them related to SOB and in need of nebulizer treatment. Patient presents to the ED today due to concern for needed nebulizer treatment. Patient has Medicare and Medicaid insurance, patient endorses that his PCP is Ludmila Esquivel PA-C at the [facility]. Patient denies need for assistance to set up PCP f/u appt. Patient endorses that he is able to schedule f/u appt and stay on top of rx refills. Patient is currently homeless and endorses his independence in accessing resources available to him. FOOTBALL PAD REPAIRER offers discount rx card for patient and patient denies need and states the his rx refills are usually affordable with his insurance. Plan: Patient to d/c to home when medically clear.
--- NOTE | 2021-08-18 12:35 | RT ---
Pt wanda dago tx well, no distress noted and on room air. Pt states more air movement noted.
[2021-08-18] MEDS: predniSONE 20 MG TABLET 60 MG PO (12:38)
[2021-08-18] MEDS: ALBUTEROL HFA PREPACK 1 BOX MISC (12:38)
[2021-08-18 12:40] VITALS: BP 140/94; PULSE 81; RESP 20; O2SAT 94
--- NOTE | 2021-08-18 13:01 | ED.SOB ---
HPI - SOB/Dyspnea <Tootie Simms, [facility] - Last Filed: 08/18/21 13:17> General Chief Complaint: Shortness of Breath/Dyspnea Stated Complaint: needs a nebulizer treatment Time Seen by Provider: 08/18/21 12:10 Source: patient Mode of arrival: Ambulatory Limitations: no limitations History of Present Illness HPI Narrative: This is a 46-year-old male with history of COPD, asthma, and frequent asthma exacerbations who presents to the emergency department with shortness of breath stating that he cannot get a good breath of air. He is a current everyday smoker, drinks approximately three or more alcoholic beverages each day, denies any recent fever, chills, dizziness, nausea, vomiting, or diarrhea. Patient states that he has established care with Ludmila pruitt at [facility] and he recently got an e-mail same that she is leaving and there was another provider there taking her patient's. He has not seen this other provider yet. Patient is homeless, states this is why he has been to the emergency department multiple times for his COPD exacerbations. COVID exposures Related Data Previous Rx's Medication Instructions Recorded sulfamethoxazole 800 1 tab PO BID 7 days #0 tabs 12/18/15 mg-trimethoprim 160 mg tablet albuterol sulfate 90 mcg/actuation 2 puff inhalation Q4-6H PRN 03/23/18 aerosol inhaler (Ventolin HFA) shortness of breath or wheezing #18 grams albuterol sulfate 90 mcg/actuation 2 puff inhalation Q4-6H PRN 10/20/20 aerosol inhaler shortness of breath or wheezing #8.5 grams prednisone 20 mg tablet 40 mg PO DAILY #10 tabs 10/20/20 albuterol sulfate 90 mcg/actuation 2 puff inhalation Q6H PRN 11/07/20 aerosol inhaler shortness of breath or wheezing #6.7 grams mupirocin 2 % topical ointment 1 applic topical BID 14 days #22 11/07/20 grams albuterol sulfate 90 mcg/actuation 2 inhalation inhalation QID PRN 12/15/20 aerosol inhaler (Ventolin HFA) shortness of breath or wheezing #6.7 grams benzonatate 100 mg capsule 100 mg PO TID PRN cough #20 caps 12/15/20 (Grayson Luciano) methylprednisolone 4 mg tablets in See Rx Instructions PO .COMPLEX 10/21/21 a dose pack (Medrol (Ozzie)) #21 ea albuterol sulfate 90 mcg/actuation 2 puff inhalation Q6H PRN 01/20/21 aerosol inhaler shortness of breath or wheezing #6.7 grams albuterol sulfate 90 mcg/actuation 2 puff inhalation Q4-6H PRN 04/10/21 aerosol inhaler shortness of breath or wheezing #8.5 grams doxycycline hyclate 100 mg capsule 100 mg PO BID #20 caps 04/10/21 prednisone 20 mg tablet 40 mg PO DAILY #10 tabs 04/10/21 prednisone 20 mg tablet 40 mg PO DAILY #10 tabs 05/27/21 albuterol sulfate 90 mcg/actuation 2 inh inhalation QID PRN shortness 06/27/21 aerosol inhaler (Ventolin HFA) of breath or wheezing #6.7 grams methylprednisolone 4 mg tablets in See Rx Instructions PO .COMPLEX 06/27/21 a dose pack (Medrol (Ozzie)) #21 ea prednisone 10 mg tablet 10 mg PO DAILY #30 tabs 07/15/21 fluticasone propionate 230 2 inh inhalation BID #12 grams 08/18/21 mcg-salmeterol 21 mcg/actuation HFA inhaler prednisone 50 mg tablet 50 mg PO DAILY 5 days #5 tabs 08/18/21 Allergies Allergy/AdvReac Type Severity Reaction Status Date / Time Penicillins Allergy Severe Unresponsiv Verified 08/18/21 12:00 e Review of Systems <DAWIT Stanford - Last Filed: 08/18/21 13:17> Review of Systems Narrative: General: denies fever, chills, malaise, sweats, fatigue Head/Neck: denies headache, neck pain, dizziness Eyes: denies visual changes, eye pain Cardio: denies chest pain, palpitations, edema Respiratory: endorses dyspnea, occasional cough, shortness of breath at rest and with exertion, wheezing, and chest tightness GI: denies abdominal pain, nausea, vomiting, or diarrhea : denies dysuria, hematuria, urinary retention, frequency or incontinence MSK: denies joint pain, muscle weakness Skin: denies rash, itching, skin lesions or other Neuro: denies numbness, tingling Patient History <DAWIT Stanford - Last Filed: 08/18/21 13:17> Medical History Asthma Social History Smoking Status: Current every day smoker Smoking Status: Current every day smoker tobacco type: cigarettes and vaping alcohol intake frequency: 3 or more drinks per day Substance Use Type: marijuana Exam <DAWIT Stanford - Last Filed: 08/18/21 13:17> Narrative Exam Narrative: Independently reviewed vitals signs and nursing notes. General: Awake, alert, nontoxic, no cardiorespiratory distress Head/Neck: Atraumatic, neck supple Eyes: EOMI, conjunctiva normal Nose: nares patent, no rhinorrhea Mouth/Throat: moist mucus membranes, posterior pharynx without erythema or lesion Cardio: Regular rate and rhythm, no peripheral edema Respiratory: respirations labored with increased expiratory effort, tachypnea with diminished breath sounds, expiratory wheezes bilaterally, without, stridor, or rales. No retractions, hypoxia GI: Abdomen soft, nontender to palpation x4 quadrants, no guarding or rebound tenderness MSK: Moves all extremities, neurovascularly intact, range of motion without deficit Skin: Normal capillary refill, no rash Neuro: Normal speech and cognition, normal gait Initial Vital Signs Initial Vital Signs: Vital Signs Temperature 97.9 F 08/18/21 11:57 Pulse Rate 101 H 08/18/21 11:57 Respiratory Rate 24 08/18/21 11:57 Blood Pressure 174/100 H 08/18/21 11:57 Pulse Oximetry 96 08/18/21 11:57 Oxygen Delivery Method 08/18/21 11:57 <Braden Herrera DO - Last Filed: 08/18/21 15:55> Initial Vital Signs Initial Vital Signs: Vital Signs Temperature 97.9 F 08/18/21 11:57 Pulse Rate 101 H 08/18/21 11:57 Respiratory Rate 24 08/18/21 11:57 Blood Pressure 174/100 H 08/18/21 11:57 Pulse Oximetry 96 08/18/21 11:57 Oxygen Delivery Method 08/18/21 11:57 Course <DAWIT Stanford - Last Filed: 08/18/21 13:17> Orders Ordered: ED Orders 08/18/21 11:57 COVID19 -Nasal RAPID/Pre-Proc Stat 08/18/21 12:00 Consult to [facility] [employer] Stat 08/18/21 12:11 RT Consult Eval and Treat NOW Discontinued Medications Albuterol (Albuterol 2.5 Mg/3 Ml Neb (Adult)) 5 mg INH NOW ONE Stop: 08/18/21 12:11 Last Admin: 08/18/21 12:15 Dose: 5 mg Documented By: JUAN ALBERTO Albuterol (Albuterol Hfa Prepack) 1 box MISC SEEINSTR ONE Stop: 08/18/21 12:32 Last Admin: 08/18/21 12:38 Dose: 1 box Documented By: RENITA Ipratropium [place] (Ipratropium 0.5 Mg/2.5 Ml Neb) 0.5 mg INH NOW ONE Stop: 08/18/21 12:11 Last Admin: 08/18/21 12:15 Dose: 0.5 mg Documented By: JUAN ALBERTO Prednisone (Prednisone 20 Mg Tablet) 60 mg PO NOW ONE Stop: 08/18/21 12:31 Last Admin: 08/18/21 12:38 Dose: 60 mg Documented By: RENITA Vital Signs Vital signs: Vital Signs - 8 hr 08/18/21 11:57 08/18/21 12:07 08/18/21 12:16 Temperature 97.9 F Pulse Rate 101 H 94 H 95 H Respiratory Rate 24 22 22 Blood Pressure 174/100 H Pulse Oximetry 96 99 97 Oxygen Delivery Method Room Air Room Air Room Air 08/18/21 12:40 08/18/21 13:08 Temperature Pulse Rate 81 91 H Respiratory Rate 20 20 Blood Pressure 140/94 H 137/93 H Pulse Oximetry 94 93 Oxygen Delivery Method Room Air Room Air <Braden Herrera, DO - Last Filed: 08/18/21 15:55> Orders Ordered: ED Orders 08/18/21 11:57 COVID19 -Nasal RAPID/Pre-Proc Stat 08/18/21 12:00 Consult to [facility] Stat 08/18/21 12:11 RT Consult Eval and Treat NOW Discontinued Medications Albuterol (Albuterol 2.5 Mg/3 Ml Neb (Adult)) 5 mg INH NOW ONE Stop: 08/18/21 12:11 Last Admin: 08/18/21 12:15 Dose: 5 mg Documented By: JUAN ALBERTO Albuterol (Albuterol Hfa Prepack) 1 box MISC SEEINSTR ONE Stop: 08/18/21 12:32 Last Admin: 08/18/21 12:38 Dose: 1 box Documented By: RENITA Ipratropium [place] (Ipratropium 0.5 Mg/2.5 Ml Neb) 0.5 mg INH NOW ONE Stop: 08/18/21 12:11 Last Admin: 08/18/21 12:15 Dose: 0.5 mg Documented By: JUAN ALBERTO Prednisone (Prednisone 20 Mg Tablet) 60 mg PO NOW ONE Stop: 08/18/21 12:31 Last Admin: 08/18/21 12:38 Dose: 60 mg Documented By: RENITA Vital Signs Vital signs: Vital Signs - 8 hr 08/18/21 11:57 08/18/21 12:07 08/18/21 12:16 Temperature 97.9 F Pulse Rate 101 H 94 H 95 H Respiratory Rate 24 22 22 Blood Pressure 174/100 H Pulse Oximetry 96 99 97 Oxygen Delivery Method Room Air Room Air Room Air 08/18/21 12:40 08/18/21 13:08 Temperature Pulse Rate 81 91 H Respiratory Rate 20 20 Blood Pressure 140/94 H 137/93 H Pulse Oximetry 94 93 Oxygen Delivery Method Room Air Room Air MDM - SOB/Dyspnea <DAWIT Stanford - Last Filed: 08/18/21 13:17> Lab Data Labs: Lab Results 08/18/21 Range/Units 11:57 SARS-CoV-2 (PCR) Negative (Negative) MDM Narrative Medical decision making narrative: This is a 46-year-old male with history of COPD, everyday smoker, with multiple COPD exacerbations and 10 ER visits in the last year who presents to the emergency department with worsening shortness of breath over the last two days, chest tightness, increased respiratory effort, and moving. Patient states that his albuterol prescription has refills available but his insurance will not let him fill it until August. He is otherwise out of albuterol at this time, states that he needs a refill of his fluticasone, states that he feels slightly fatigued working hard to breathe home morning. Patient was given 5 mg of albuterol nebulized and 2.5mg Atrovent, 50 mg of prednisone, and after 30 minutes had increased aeration, decreased respiratory effort, improved tachypnea, states that he feels much better. He denied the need for any additional albuterol. He was given an MDI inhaler to bridge him until he can pickle sorter his other prescription. Patient has establish care with Antonia pruitt at the [facility] and states that he received an e-mail about a new provider who will be taking her placed there. He sent an e-mail requesting a follow-up appointment from his emergency department visit today he is encouraged to follow-up. His fluticasone inhaler was refilled, patient is nontoxic appearing, without increased respiratory effort and is no longer dyspneic or tachypneic. He did not have any hypoxia states that he feels much better, COVID PCR is negative. Patient is appropriate and amenable to discharge home. Vital signs are stable on repeat examination is unremarkable. Patient has been informed of results. Patient has been given strict return to ER precautions for any new or worsening symptoms. Patient understands to follow up closely with outpatient providers as instructed. Patient understands plan and agrees to discharge home. All questions and concerns answered at this time. <Braden Herrera, DO - Last Filed: 08/18/21 15:55> Lab Data Labs: Lab Results 08/18/21 Range/Units 11:57 SARS-CoV-2 (PCR) Negative (Negative) Discharge Plan Departure Patient Disposition: Home Clinical Impression: Asthma exacerbation in COPD Instructions: DI for Chronic Obstructive Pulmonary Disease Activity Restrictions/Additional Instructions: *You have been diagnosed with COPD exacerbation. [facility] and make a follow-up appointment with Binta pruitt or whoever is taking her place. She will want to know if you need any changes to your COPD medications moving forward. Because you were as tight as you are today, please take this steroid for the next five days with food and water. Please stay hydrated, take your other medications as prescribed, return to the emergency department for any new or worsening shortness of breath, chest pain, or other concerning symptom. I wish you luck, do not forget to eat food with your medicine, I hope you feel better soon. *What to do: *Please continue to take your regular medications as directed. [x] New medication prescriptions sent to your pharmacy: [[facility] ] [ ] New medication written as a paper prescription [ ] No new medications given *Please follow up with your primary care provider in 2-3 days, call for an appointment. Let them know you were seen in the Emergency Department and that we asked that you be seen for follow-up. We will electronically transmit a record of today's note if your PCP is in our system *If you do not have a primary care provider please contact [phone] to establish care with one of the [facility] primary care providers. *Return to Emergency Department if you should have any new, worsening or concerning symptoms, such as [fever greater than 101F, chills, worsening pain, persistent vomiting or other bothersome symptoms] Prescriptions: New fluticasone propion-salmeterol 230-21 mcg/actuation HFA aerosol inhaler 2 inh inhalation BID Qty: 12 3RF prednisone 50 mg tablet 50 mg PO DAILY 5 Days Qty: 5 0RF No Action mupirocin 2 % ointment 1 applic topical BID 14 Days Qty: 22 1RF albuterol sulfate 90 mcg/actuation HFA aerosol inhaler 2 puff inhalation Q6H PRN (Reason: shortness of breath or wheezing) Qty: 6.7 3RF albuterol sulfate 90 mcg/actuation HFA aerosol inhaler 2 puff inhalation Q6H PRN (Reason: shortness of breath or wheezing) Qty: 6.7 3RF sulfamethoxazole-trimethoprim 800 MG/160 MG tablet 1 tab PO BID 7 Days Qty: 0 0RF albuterol sulfate [Ventolin HFA] 90 mcg/actuation HFA aerosol inhaler 2 puff INHALATION Q4-6H PRN (Reason: shortness of breath or wheezing) Qty: 18 0RF prednisone 10 mg tablet 10 mg PO DAILY Qty: 30 0RF Rx Instructions: day 1-3: 40 mg once a day day 4-6: 30 mg once a day day 7-9: 20 mg once a day day 10-12: 10 mg once a day prednisone 20 mg tablet 40 mg PO DAILY Qty: 10 0RF albuterol sulfate 90 mcg/actuation HFA aerosol inhaler 2 puff INHALATION Q4-6H PRN (Reason: shortness of breath or wheezing) Qty: 8.5 0RF benzonatate [Tessalon Perles] 100 mg capsule 100 mg PO TID PRN (Reason: cough) Qty: 20 0RF methylprednisolone [Medrol (Ozzie)] 4 mg tablets,dose pack See Rx Instructions .ROUTE .COMPLEX Qty: 21 0RF Rx Instructions: orally per package directions albuterol sulfate [Ventolin HFA] 90 mcg/actuation HFA aerosol inhaler 2 inhalation INHALATION QID PRN (Reason: shortness of breath or wheezing) Qty: 6.7 0RF doxycycline hyclate 100 mg capsule 100 mg PO BID Qty: 20 0RF prednisone 20 mg tablet 40 mg PO DAILY Qty: 10 0RF albuterol sulfate 90 mcg/actuation HFA aerosol inhaler 2 puff INHALATION Q4-6H PRN (Reason: shortness of breath or wheezing) Qty: 8.5 0RF prednisone 20 mg tablet 40 mg PO DAILY Qty: 10 0RF methylprednisolone [Medrol (Ozzie)] 4 mg tablets,dose pack See Rx Instructions PO .COMPLEX Qty: 21 0RF Rx Instructions: orally per package directions albuterol sulfate [Ventolin HFA] 90 mcg/actuation HFA aerosol inhaler 2 inh inhalation QID PRN (Reason: shortness of breath or wheezing) Qty: 6.7 0RF Referrals: [facility] [Provider Group] Ludmila Pruitt PA-C [Non-Staff] - Visit Report Forms: Patient Portal/API <Braden Herrera, DO - Last Filed: 08/18/21 15:55> Cosign ED Attending Cosignature Attestation: Dr Herrera Co-Sign Statement: I was available for consultation during this patient's emergency department visit. This chart is signed by myself for administrative purposes only. I did not have direct contact with this patient during this visit. They were seen independently by the APC.
[2021-08-18 13:08] VITALS: BP 137/93; PULSE 91; RESP 20; O2SAT 93
== END 2021-08-18 13:06 | disposition home or self-care (01) ==
PROVIDERS: Emergency Medicine; Emergency Provider Nurse Practitioner Critical Care Medicine
DX: J44.1 Chronic obstructive pulmonary disease with (acute) exacerbation (principal); Z20.822 Contact with and (suspected) exposure to COVID-19
CPT/HCPCS: 87635; 94640; 99283; C9803; J7613

== ENCOUNTER 2021-09-28 09:56 | Emergency (ER) | payer MEDICARE, MEDICAID, SELFPAY ==
[2021-09-28 10:02] VITALS: BP 132/90; PULSE 112; RESP 18; TEMP 36.9; O2SAT 94; BMI 23.6
--- NOTE | 2021-09-28 10:05 | DI.RAD.S_ITS ---
PROCEDURE: XR CHEST 2V INDICATIONS: shortness of breath TECHNIQUE: 2 views of the chest were acquired. COMPARISON: None. FINDINGS: Surgical changes and devices: None. Lungs and pleura: Lungs are clear. No pleural effusions or pneumothorax. Lungs are hyperinflated suggesting COPD. Mediastinum: Mediastinal contours are normal. Heart size is normal. Bones and chest wall: No suspicious bony abnormalities. Soft tissues appear unremarkable. IMPRESSION: No acute cardiopulmonary disease process. Dictated by: Micki Islas MD, PhD on 09/28/2021 at 10:55 Approved by: Micki Islas MD, PhD on 09/28/2021 at 11:03
[2021-09-28 10:50] LABS: COVID19 -Nasal RAPID POSITIVE (Negative)
[2021-09-28 11:54] VITALS: BP 136/86; PULSE 93; RESP 18; TEMP 36.9; O2SAT 95
[2021-09-28] MEDS: ACETAMINOPHEN 325 MG TABLET 975 MG PO (12:37)
[2021-09-28] MEDS: DEXAMETHASONE 10 MG/ML VIAL PO (12:38)
[2021-09-28] MEDS: KETOROLAC 30 MG/ML VIAL 15 MG IM (12:38)
[2021-09-28] MEDS: guaiFENesin ER 600 MG TAB PO (12:38)
[2021-09-28] MEDS: ALBUTEROL/IPRATROPIUM 3 ML AMPUL INH (13:06)
[2021-09-28 13:12] VITALS: PULSE 82; RESP 20; O2SAT 98
--- NOTE | 2021-09-28 13:23 | ED.SOB ---
HPI - SOB/Dyspnea <Tootie Simms, [facility] - Last Filed: 09/28/21 16:22> General Chief Complaint: Shortness of Breath/Dyspnea Stated Complaint: SOB, thinks lung infection, nodule on tongue Time Seen by Provider: 09/28/21 12:02 Source: patient Mode of arrival: Ambulatory Limitations: no limitations History of Present Illness HPI Narrative: This is a 46-year-old male with history of asthma, COPD and frequent asthma exacerbations who lives outside and presents to the emergency department with one day congestion, sore throat, anterior cervical lymphadenopathy, wheezing, and he has had a productive cough. He denies any fever, nausea vomiting, diarrhea, wounds, chills or other. He reports having a sore throat, wheezing, feeling fatigued with anterior cervical lymphadenopathy. He is not COVID vaccinated. Related Data Previous Rx's Medication Instructions Recorded sulfamethoxazole 800 1 tab PO BID 7 days #0 tabs 12/18/15 mg-trimethoprim 160 mg tablet albuterol sulfate 90 mcg/actuation 2 puff inhalation Q4-6H PRN 03/23/18 aerosol inhaler (Ventolin HFA) shortness of breath or wheezing #18 grams albuterol sulfate 90 mcg/actuation 2 puff inhalation Q4-6H PRN 10/20/20 aerosol inhaler shortness of breath or wheezing #8.5 grams prednisone 20 mg tablet 40 mg PO DAILY #10 tabs 10/20/20 albuterol sulfate 90 mcg/actuation 2 puff inhalation Q6H PRN 11/07/20 aerosol inhaler shortness of breath or wheezing #6.7 grams mupirocin 2 % topical ointment 1 applic topical BID 14 days #22 11/07/20 grams albuterol sulfate 90 mcg/actuation 2 inhalation inhalation QID PRN 12/15/20 aerosol inhaler (Ventolin HFA) shortness of breath or wheezing #6.7 grams benzonatate 100 mg capsule 100 mg PO TID PRN cough #20 caps 12/15/20 (Tesflor Luciano) methylprednisolone 4 mg tablets in See Rx Instructions PO .COMPLEX 12/15/20 a dose pack (Medrol (Ozzie)) #21 ea albuterol sulfate 90 mcg/actuation 2 puff inhalation Q6H PRN 01/20/21 aerosol inhaler shortness of breath or wheezing #6.7 grams albuterol sulfate 90 mcg/actuation 2 puff inhalation Q4-6H PRN 04/10/21 aerosol inhaler shortness of breath or wheezing #8.5 grams doxycycline hyclate 100 mg capsule 100 mg PO BID #20 caps 04/10/21 prednisone 20 mg tablet 40 mg PO DAILY #10 tabs 04/10/21 prednisone 20 mg tablet 40 mg PO DAILY #10 tabs 05/27/21 albuterol sulfate 90 mcg/actuation 2 inh inhalation QID PRN shortness 06/27/21 aerosol inhaler (Ventolin HFA) of breath or wheezing #6.7 grams methylprednisolone 4 mg tablets in See Rx Instructions PO .COMPLEX 06/27/21 a dose pack (Medrol (Ozzie)) #21 ea prednisone 10 mg tablet 10 mg PO DAILY #30 tabs 07/15/21 fluticasone propionate 230 2 inh inhalation BID #12 grams 08/18/21 mcg-salmeterol 21 mcg/actuation HFA inhaler albuterol sulfate 90 mcg/actuation 2 puff inhalation Q6H PRN 09/28/21 aerosol inhaler shortness of breath or wheezing #8.5 grams nirmatrelvir 300 mg (150 mg x See Rx Instructions PO .COMPLEX 09/28/21 2)-ritonavir 100 mg tablet (EUA) #30 tabs (Paxlovid 300 mg () Allergies Allergy/AdvReac Type Severity Reaction Status Date / Time Penicillins Allergy Severe Unresponsiv Verified 09/28/21 10:02 e Review of Systems <DAWIT Stanford - Last Filed: 09/28/21 16:22> Review of Systems Narrative: General: denies fever, chills, malaise, sweats, fatigue Head/Neck: denies headache, neck pain, dizziness Eyes: denies visual changes, eye pain Cardio: denies chest pain, palpitations, edema Respiratory: Endorses dyspnea, cough, and wheezing without orthopnea GI: denies abdominal pain, nausea, vomiting, or diarrhea : denies dysuria, hematuria, urinary retention, frequency or incontinence MSK: denies joint pain, muscle weakness Skin: denies rash, itching, skin lesions or other Neuro: denies numbness, tingling Patient History <DAWIT Stanford - Last Filed: 09/28/21 16:22> Medical History Asthma Social History Smoking Status: Current every day smoker Smoking Status: Current every day smoker tobacco type: cigarettes and vaping alcohol intake frequency: 3 or more drinks per day Substance Use Type: marijuana Exam <DAWIT Stanford - Last Filed: 09/28/21 16:22> Narrative Exam Narrative: Independently reviewed vitals signs and nursing notes. General: cooperative, comfortable, in no acute distress, well groomed Head: atraumatic, symmetrical facial expressions Neck: supple Eyes: equal round and reactive, EOMI, conjunctiva normal Nose: nares patent, no rhinorrhea Mouth/Throat: moist mucus membranes Cardiovascular: regular rate and rhythm, no peripheral edema, warm extremities Respiratory: normal effort, able to speak in complete sentences, inspiratory and expiratory wheezes throughout all villasenor, without stridor, or rales. No increased work of breathing, No retractions or tachypnea. GI: abdomen soft, nontender to palpation, nondistended, no masses, no exquisite tenderness with exam, without guarding or rebound. MSK: moves all extremities, neurovascularly intact, no weakness, normal tone Skin: brisk capillary refill, no rash, no erythema Neuro: normal speech and cognition, A&O x3 Psych: mental status is grossly normal, congruent mood, normal affect, pleasant and cooperative Initial Vital Signs Initial Vital Signs: Vital Signs Temperature 98.4 F 09/28/21 10:02 Pulse Rate 112 H 09/28/21 10:02 Respiratory Rate 18 09/28/21 10:02 Blood Pressure 132/90 09/28/21 10:02 Pulse Oximetry 94 09/28/21 10:02 Oxygen Delivery Method 09/28/21 10:02 <Milagro Collins DO - Last Filed: 10/06/21 07:48> Initial Vital Signs Initial Vital Signs: Vital Signs Temperature 98.4 F 09/28/21 10:02 Pulse Rate 112 H 09/28/21 10:02 Respiratory Rate 18 09/28/21 10:02 Blood Pressure 132/90 09/28/21 10:02 Pulse Oximetry 94 09/28/21 10:02 Oxygen Delivery Method 09/28/21 10:02 Scores <DAWIT Stanford - Last Filed: 09/28/21 16:22> Wells' Criteria for PE Clinical signs and symptoms of DVT: No PE is #1 Dx or equally likely: No Heart rate > 100: No Immobilization at least 3 days or surg in previous 4 weeks: No History of PE or DVT: No Hemoptysis: No Malignancy w/Treatment within 6 months or palliative: No Wells' PE Score total: 0 <Milagro Collins DO - Last Filed: 10/06/21 07:48> Wells' Criteria for PE Wells' PE Score total: 0 Course <DAWIT Stanford - Last Filed: 09/28/21 16:22> Course Course Narrative: Patient feels much better after nebulizer Orders Ordered: Discontinued Medications Acetaminophen (Acetaminophen 325 Mg Tablet) 975 mg PO NOW ONE Stop: 09/28/21 12:27 Last Admin: 09/28/21 12:37 Dose: 975 mg Documented By: NATALYA Albuterol/Ipratropium (Albuterol/Ipratropium 3 Ml Ampul) 3 ml INH NOW ONE Stop: 09/28/21 12:55 Last Admin: 09/28/21 13:06 Dose: 3 ml Documented By: IRAM Dexamethasone (Dexamethasone 10 Mg/Ml Vial) 10 mg PO NOW ONE Stop: 09/28/21 12:22 Last Admin: 09/28/21 12:38 Dose: 10 mg Documented By: NATALYA Guaifenesin (Guaifenesin Er 600 Mg Tab) 600 mg PO NOW ONE Stop: 09/28/21 12:27 Last Admin: 09/28/21 12:38 Dose: 600 mg Documented By: NATALYA Ketorolac Tromethamine (Ketorolac 30 Mg/Ml Vial) 15 mg IM NOW ONE Stop: 09/28/21 12:27 Last Admin: 09/28/21 12:38 Dose: 15 mg Documented By: NATALYA Vital Signs Vital signs: Vital Signs - 8 hr 09/28/21 10:02 09/28/21 11:54 09/28/21 13:12 Temperature 98.4 F 98.4 F Pulse Rate 112 H 93 H 82 Respiratory Rate 18 18 20 Blood Pressure 132/90 136/86 Pulse Oximetry 94 95 98 Oxygen Delivery Method Room Air Room Air Room Air 09/28/21 13:30 Temperature Pulse Rate 85 Respiratory Rate 18 Blood Pressure 154/94 H Pulse Oximetry 98 Oxygen Delivery Method Room Air <Milagro Collins DO - Last Filed: 10/06/21 07:48> Orders Ordered: Discontinued Medications Acetaminophen (Acetaminophen 325 Mg Tablet) 975 mg PO NOW ONE Stop: 09/28/21 12:27 Last Admin: 09/28/21 12:37 Dose: 975 mg Documented By: NATALYA Albuterol/Ipratropium (Albuterol/Ipratropium 3 Ml Ampul) 3 ml INH NOW ONE Stop: 09/28/21 12:55 Last Admin: 09/28/21 13:06 Dose: 3 ml Documented By: IRAM Dexamethasone (Dexamethasone 10 Mg/Ml Vial) 10 mg PO NOW ONE Stop: 09/28/21 12:22 Last Admin: 09/28/21 12:38 Dose: 10 mg Documented By: NATALYA Guaifenesin (Guaifenesin Er 600 Mg Tab) 600 mg PO NOW ONE Stop: 09/28/21 12:27 Last Admin: 09/28/21 12:38 Dose: 600 mg Documented By: NATALYA Ketorolac Tromethamine (Ketorolac 30 Mg/Ml Vial) 15 mg IM NOW ONE Stop: 09/28/21 12:27 Last Admin: 09/28/21 12:38 Dose: 15 mg Documented By: NATALYA Vital Signs Vital signs: Vital Signs - 8 hr 09/28/21 10:02 09/28/21 11:54 09/28/21 13:12 Temperature 98.4 F 98.4 F Pulse Rate 112 H 93 H 82 Respiratory Rate 18 18 20 Blood Pressure 132/90 136/86 Pulse Oximetry 94 95 98 Oxygen Delivery Method Room Air Room Air Room Air 09/28/21 13:30 Temperature Pulse Rate 85 Respiratory Rate 18 Blood Pressure 154/94 H Pulse Oximetry 98 Oxygen Delivery Method Room Air MDM - SOB/Dyspnea <DAWIT Stanford - Last Filed: 09/28/21 16:22> Lab Data Labs: Lab Results 09/28/21 Range/Units 10:06 SARS-CoV-2 (PCR) Positive H (Negative) Imaging Data Chest x-ray: Radiologist's Impression: PROCEDURE:? XR CHEST 2V ? INDICATIONS:? shortness of breath ? TECHNIQUE:? 2 views of the chest were acquired.? ? COMPARISON:? None. ? FINDINGS:? ? Surgical changes and devices:? None.? ? Lungs and pleura:? Lungs are clear.? No pleural effusions or pneumothorax.? Lungs are hyperinflated suggesting COPD.? ? Mediastinum:? Mediastinal contours are normal.? Heart size is normal.? ? Bones and chest wall:? No suspicious bony abnormalities.? Soft tissues appear unremarkable.? ? IMPRESSION:? No acute cardiopulmonary disease process. ? ? Dictated by: Micki Islas MD, PhD on 09/28/2021 at 10:55 ? ? Approved by: Micki Islas MD, PhD on 09/28/2021 at 11:03 ? ECG Data Interpretation: EKG independently reviewed by Dr. Meyer and reveals normal sinus rhythm with regular axis and intervals. No STEMI, ST segment changes, arrhythmia, or acute ischemic changes. MDM Narrative Medical decision making narrative: This is a 46-year-old male with history of COPD and asthma who states that he lives outside and presents to the emergency department endorsing a sore throat, cough, anterior cervical lymphadenopathy, and wheezing which he states started worsening yesterday. He reports subjective hot and cold sensation but denies any measured fever. On exam, patient has inspiratory and expiratory wheezes, his COVID PCR is positive today, chest x-ray shows no acute cardiopulmonary disease process. Patient endorses productive cough but does not have any rhonchi, crackles, or increased work of breathing. Patient has multiple emergency department visits for COPD/asthma exacerbations, he does not have a PCP relationship set up but has seen [facility]. Encouraged him to follow-up at that clinic or return to the emergency department in a few days. Opted to treat him with Paxlovid due to his significant pulmonary disease and treated him with prednisone 40 mg daily knowing that Paxlovid will likely increase the serum concentration of his prednisone. He does not have any other medication interactions, I refilled his albuterol inhaler, encouraged him to stay hydrated and to avoid sharing his illness with other people. COVID (+) on day one of symptoms without hypoxia, respiratory distress, dehydration, or focal exam to suggest secondary bacterial infection. Discussed CDC guidelines for quarantine, mask wearing, physical distancing, and infection prevention measures such as frequent handwashing. Discussed supportive treatments: Tylenol/Motrin as needed for pain/fever. OTC decongestant medications and/or antihistamines for symptomatic relief. Maintain adequate fluid intake. Follow-up with PCP as directed. Return to clinic/ER instructions discussed for new, not improving, or worsening symptoms. All questions answered. <Milagro Leonie Collins, DO - Last Filed: 10/06/21 07:48> Lab Data Labs: Lab Results 09/28/21 Range/Units 10:06 SARS-CoV-2 (PCR) Positive H (Negative) Discharge Plan Departure Patient Disposition: Home Clinical Impression: COVID-19 Asthma attack Qualifiers: Asthma severity: severe Asthma persistence: persistent Qualified Code(s): J45.51 - Severe persistent asthma with (acute) exacerbation Instructions: DI for Asthma -- Adult, COVID-19 Activity Restrictions/Additional Instructions: *You have been diagnosed with an asthma exacerbation and COVID-19 virus. This is likely the trigger for your asthma exacerbation. Steroids are still recommended for people like you who have severe symptoms. Please try to not share your germs with others and avoid breathing or coughing on people if you live in close proximity to them. Do the best you can. You have a high risk of getting sick due to your asthma from COVID-19. Please start taking Paxlovid for the next five days to help prevent worsening of your illness and hospital admission. If you have worsening of your illness where you do not think you are breathing okay please come back to the hospital. This could potentially prolonge your illness but it has proven to reduce hospitalization in people with COVID and comorbid illnesses. Please follow-up in the emergency department, or call the number below to establish care with one of the primary care providers. Please come back to the emergency department if you are not breathing well. *What to do: *Please continue to take your regular medications as directed. [x ] New medication prescriptions sent to your pharmacy: [ [facility]] [ ] New medication written as a paper prescription [ ] No new medications given *Please follow up with your primary care provider in 2-3 days, call for an appointment. Let them know you were seen in the Emergency Department and that we asked that you be seen for follow-up. We will electronically transmit a record of today's note if your PCP is in our system *If you do not have a primary care provider please contact [phone] to establish care with one of the [facility] primary care providers. *Return to Emergency Department if you should have any new, worsening or concerning symptoms, such as [fever greater than 101F, chills, worsening pain, persistent vomiting or other bothersome symptoms] Prescriptions: New Paxlovid (EUA) 150 mg x 2- 100 mg tablet See Rx Instructions .ROUTE .COMPLEX Qty: 30 0RF Rx Instructions: take TWO 150 mg tablets of nirmatrelvir with ONE 100 mg tablet of ritonavir twice daily for 5 days albuterol sulfate 90 mcg/actuation HFA aerosol inhaler 2 puff inhalation Q6H PRN (Reason: shortness of breath or wheezing) Qty: 8.5 6RF No Action mupirocin 2 % ointment 1 applic topical BID 14 Days Qty: 22 1RF albuterol sulfate 90 mcg/actuation HFA aerosol inhaler 2 puff inhalation Q6H PRN (Reason: shortness of breath or wheezing) Qty: 6.7 3RF albuterol sulfate 90 mcg/actuation HFA aerosol inhaler 2 puff inhalation Q6H PRN (Reason: shortness of breath or wheezing) Qty: 6.7 3RF sulfamethoxazole-trimethoprim 800 MG/160 MG tablet 1 tab PO BID 7 Days Qty: 0 0RF albuterol sulfate [Ventolin HFA] 90 mcg/actuation HFA aerosol inhaler 2 puff INHALATION Q4-6H PRN (Reason: shortness of breath or wheezing) Qty: 18 0RF prednisone 10 mg tablet 10 mg PO DAILY Qty: 30 0RF Rx Instructions: day 1-3: 40 mg once a day day 4-6: 30 mg once a day day 7-9: 20 mg once a day day 10-12: 10 mg once a day fluticasone propion-salmeterol 230-21 mcg/actuation HFA aerosol inhaler 2 inh inhalation BID Qty: 12 3RF prednisone 20 mg tablet 40 mg PO DAILY Qty: 10 0RF albuterol sulfate 90 mcg/actuation HFA aerosol inhaler 2 puff INHALATION Q4-6H PRN (Reason: shortness of breath or wheezing) Qty: 8.5 0RF benzonatate [Tessalon Perles] 100 mg capsule 100 mg PO TID PRN (Reason: cough) Qty: 20 0RF methylprednisolone [Medrol (Ozzie)] 4 mg tablets,dose pack See Rx Instructions .ROUTE .COMPLEX Qty: 21 0RF Rx Instructions: orally per package directions albuterol sulfate [Ventolin HFA] 90 mcg/actuation HFA aerosol inhaler 2 inhalation INHALATION QID PRN (Reason: shortness of breath or wheezing) Qty: 6.7 0RF doxycycline hyclate 100 mg capsule 100 mg PO BID Qty: 20 0RF prednisone 20 mg tablet 40 mg PO DAILY Qty: 10 0RF albuterol sulfate 90 mcg/actuation HFA aerosol inhaler 2 puff INHALATION Q4-6H PRN (Reason: shortness of breath or wheezing) Qty: 8.5 0RF prednisone 20 mg tablet 40 mg PO DAILY Qty: 10 0RF methylprednisolone [Medrol (Ozzie)] 4 mg tablets,dose pack See Rx Instructions PO .COMPLEX Qty: 21 0RF Rx Instructions: orally per package directions albuterol sulfate [Ventolin HFA] 90 mcg/actuation HFA aerosol inhaler 2 inh inhalation QID PRN (Reason: shortness of breath or wheezing) Qty: 6.7 0RF Referrals: Ludmila Esquivel PA-C [Non-Staff] - Visit Report Forms: Patient Portal/API <Milagro Collins DO - Last Filed: 10/06/21 07:48> Cosign ED Attending Charles Attestation: I was immediately available in the department for consultation. Documentation has been reviewed. Case discussed with myself.
[2021-09-28 13:30] VITALS: BP 154/94; PULSE 85; RESP 18; O2SAT 98
== END 2021-09-28 13:31 | disposition home or self-care (01) ==
PROVIDERS: Emergency Medicine; Emergency Provider Nurse Practitioner Critical Care Medicine
DX: U07.1 COVID-19 (principal); J45.41 Moderate persistent asthma with (acute) exacerbation
CPT/HCPCS: 71046; 87635; 94640; 96372; 99283; 99284; C9803; J1100; J1885

== ENCOUNTER 2021-11-26 03:25 | Emergency (ER) | payer MEDICARE, MEDICAID, SELFPAY ==
--- NOTE | 2021-11-26 03:39 | ED.GENADULT ---
HPI - General Adult General Chief complaint: Nausea/Vomiting/Diarrhea Stated complaint: N/V Time Seen by Provider: 11/26/21 03:26 Source: patient Mode of arrival: EMS Limitations: no limitations History of Present Illness HPI narrative: 46-year-old male brought in by EMS from across the street from the hospital for approximately 1 hour of nausea and vomiting. No diarrhea. Has been drinking on a daily basis ?recently ?. Has not tried anything for symptoms prior to arrival. No fevers. Related Data Previous Rx's Medication Instructions Recorded sulfamethoxazole 800 1 tab PO BID 7 days #0 tabs 12/18/15 mg-trimethoprim 160 mg tablet albuterol sulfate 90 mcg/actuation 2 puff inhalation Q4-6H PRN 03/23/18 aerosol inhaler (Ventolin HFA) shortness of breath or wheezing #18 grams albuterol sulfate 90 mcg/actuation 2 puff inhalation Q4-6H PRN 10/20/20 aerosol inhaler shortness of breath or wheezing #8.5 grams prednisone 20 mg tablet 40 mg PO DAILY #10 tabs 10/20/20 albuterol sulfate 90 mcg/actuation 2 puff inhalation Q6H PRN 11/07/20 aerosol inhaler shortness of breath or wheezing #6.7 grams mupirocin 2 % topical ointment 1 applic topical BID 14 days #22 11/07/20 grams albuterol sulfate 90 mcg/actuation 2 inhalation inhalation QID PRN 12/15/20 aerosol inhaler (Ventolin HFA) shortness of breath or wheezing #6.7 grams benzonatate 100 mg capsule 100 mg PO TID PRN cough #20 caps 12/15/20 (Grayson Luciano) methylprednisolone 4 mg tablets in See Rx Instructions PO .COMPLEX 12/15/20 a dose pack (Medrol (Ozzie)) #21 ea albuterol sulfate 90 mcg/actuation 2 puff inhalation Q6H PRN 01/20/21 aerosol inhaler shortness of breath or wheezing #6.7 grams albuterol sulfate 90 mcg/actuation 2 puff inhalation Q4-6H PRN 04/10/21 aerosol inhaler shortness of breath or wheezing #8.5 grams doxycycline hyclate 100 mg capsule 100 mg PO BID #20 caps 04/10/21 prednisone 20 mg tablet 40 mg PO DAILY #10 tabs 04/10/21 prednisone 20 mg tablet 40 mg PO DAILY #10 tabs 05/27/21 albuterol sulfate 90 mcg/actuation 2 inh inhalation QID PRN shortness 06/27/21 aerosol inhaler (Ventolin HFA) of breath or wheezing #6.7 grams methylprednisolone 4 mg tablets in See Rx Instructions PO .COMPLEX 06/27/21 a dose pack (Medrol (Ozzie)) #21 ea prednisone 10 mg tablet 10 mg PO DAILY #30 tabs 07/15/21 fluticasone propionate 230 2 inh inhalation BID #12 grams 08/18/21 mcg-salmeterol 21 mcg/actuation HFA inhaler albuterol sulfate 90 mcg/actuation 2 puff inhalation Q6H PRN 09/28/21 aerosol inhaler shortness of breath or wheezing #8.5 grams nirmatrelvir 300 mg (150 mg See Rx Instructions PO .COMPLEX 09/28/21 x2)-ritonavir 100 mg tablet,dose #30 tabs pack(EUA) (Paxlovid) Allergies Allergy/AdvReac Type Severity Reaction Status Date / Time Penicillins Allergy Severe Unresponsiv Verified 09/28/21 10:02 e Review of Systems Constitutional Constitutional: Reports system reviewed and no additional complaints, except as documented Gastrointestinal Gastrointestinal: Reports system reviewed and no additional complaints, except as documented Genitourinary Genitourinary: Reports system reviewed and no additional complaints, except as documented Integumentary/Breasts Skin/Breast: Reports system reviewed and no additional complaints, except as documented Patient History Medical History Asthma Social History Smoking Status: Current every day smoker Smoking Status: Current every day smoker tobacco type: cigarettes and vaping alcohol intake frequency: 3 or more drinks per day Substance Use Type: marijuana Exam Initial Vital Signs Initial Vital Signs: Vital Signs Temperature 97.6 F 11/26/21 03:41 Pulse Rate 90 11/26/21 03:41 Respiratory Rate 18 11/26/21 03:41 Blood Pressure 175/98 H 11/26/21 03:41 Pulse Oximetry 93 11/26/21 03:41 Oxygen Delivery Method 11/26/21 03:41 HENNY Head: normal to inspection and normocephalic Resp Effort & Inspection: not tachypneic Other: No respiratory distress, mild wheezing left-sided lung villasenor. Cardio Rate: regular rate Rhythm: regular rhythm GI Inspection: non-distended Palpation: No firm and No tender Skin General: no rashes or lesions noted Neuro General: patient alert, patient awake and moves all extremities Extrem General: normal to inspection and capillary refill normal Psych Appearance: grossly normal Course Orders Ordered: Ondansetron HCl (Ondansetron 4 Mg Odt Prepack) 1 bottle MISC SEEINSTR ONE Stop: 11/26/21 04:43 Discontinued Medications Ondansetron HCl (Ondansetron 4 Mg Odt) 4 mg SL NOW ONE Stop: 11/26/21 03:39 Last Admin: 11/26/21 03:46 Dose: 4 mg Vital Signs Vital signs: Vital Signs - 8 hr 11/26/21 03:41 Temperature 97.6 F Pulse Rate 90 Respiratory Rate 18 Blood Pressure 175/98 H Pulse Oximetry 93 Oxygen Delivery Method Room Air Medical Decision Making MDM Narrative Medical decision making narrative: Improvement after oral Zofran. Benign exam. Tolerating oral intake. We will hold on radiologic studies or lab tests for now. He was given return precautions. He expressed understanding and agreement. Discharge Plan Departure Patient Disposition: Home Clinical Impression: Nausea and vomiting Instructions: Nausea and Vomiting-Adult Activity Restrictions/Additional Instructions: Use the nausea medication as needed. I recommend a bland diet for the next 24 hours and then you can advance it as tolerated. Return to the emergency department for any new or worsening symptoms. Prescriptions: No Action mupirocin 2 % ointment 1 applic topical BID 14 Days Qty: 22 1RF albuterol sulfate 90 mcg/actuation HFA aerosol inhaler 2 puff inhalation Q6H PRN (Reason: shortness of breath or wheezing) Qty: 6.7 3RF albuterol sulfate 90 mcg/actuation HFA aerosol inhaler 2 puff inhalation Q6H PRN (Reason: shortness of breath or wheezing) Qty: 6.7 3RF sulfamethoxazole-trimethoprim 800 MG/160 MG tablet 1 tab PO BID 7 Days Qty: 0 0RF albuterol sulfate [Ventolin HFA] 90 mcg/actuation HFA aerosol inhaler 2 puff INHALATION Q4-6H PRN (Reason: shortness of breath or wheezing) Qty: 18 0RF prednisone 10 mg tablet 10 mg PO DAILY Qty: 30 0RF Rx Instructions: day 1-3: 40 mg once a day day 4-6: 30 mg once a day day 7-9: 20 mg once a day day 10-12: 10 mg once a day fluticasone propion-salmeterol 230-21 mcg/actuation HFA aerosol inhaler 2 inh inhalation BID Qty: 12 3RF prednisone 20 mg tablet 40 mg PO DAILY Qty: 10 0RF albuterol sulfate 90 mcg/actuation HFA aerosol inhaler 2 puff INHALATION Q4-6H PRN (Reason: shortness of breath or wheezing) Qty: 8.5 0RF benzonatate [Tessalon Perles] 100 mg capsule 100 mg PO TID PRN (Reason: cough) Qty: 20 0RF methylprednisolone [Medrol (Ozzie)] 4 mg tablets,dose pack See Rx Instructions .ROUTE .COMPLEX Qty: 21 0RF Rx Instructions: orally per package directions albuterol sulfate [Ventolin HFA] 90 mcg/actuation HFA aerosol inhaler 2 inhalation INHALATION QID PRN (Reason: shortness of breath or wheezing) Qty: 6.7 0RF doxycycline hyclate 100 mg capsule 100 mg PO BID Qty: 20 0RF prednisone 20 mg tablet 40 mg PO DAILY Qty: 10 0RF albuterol sulfate 90 mcg/actuation HFA aerosol inhaler 2 puff INHALATION Q4-6H PRN (Reason: shortness of breath or wheezing) Qty: 8.5 0RF prednisone 20 mg tablet 40 mg PO DAILY Qty: 10 0RF methylprednisolone [Medrol (Ozzie)] 4 mg tablets,dose pack See Rx Instructions PO .COMPLEX Qty: 21 0RF Rx Instructions: orally per package directions albuterol sulfate [Ventolin HFA] 90 mcg/actuation HFA aerosol inhaler 2 inh inhalation QID PRN (Reason: shortness of breath or wheezing) Qty: 6.7 0RF Paxlovid (EUA) 150 mg x 2- 100 mg tablet See Rx Instructions .ROUTE .COMPLEX Qty: 30 0RF Rx Instructions: take TWO 150 mg tablets of nirmatrelvir with ONE 100 mg tablet of ritonavir twice daily for 5 days albuterol sulfate 90 mcg/actuation HFA aerosol inhaler 2 puff inhalation Q6H PRN (Reason: shortness of breath or wheezing) Qty: 8.5 6RF
[2021-11-26 03:41] VITALS: BP 175/98; PULSE 90; RESP 18; TEMP 36.4; O2SAT 93; BMI 22.8
[2021-11-26] MEDS: ONDANSETRON 4 MG ODT SL (03:46)
[2021-11-26 04:10] VITALS: PULSE 75; O2SAT 89
[2021-11-26 04:30] VITALS: BP 155/101; PULSE 79; O2SAT 94
[2021-11-26] MEDS: ONDANSETRON 4 MG ODT PREPACK 1 BOTTLE MISC (04:48)
== END 2021-11-26 05:12 | disposition home or self-care (01) ==
PROVIDERS: Emergency Provider Emergency Medicine
DX: R11.2 Nausea with vomiting, unspecified (principal)
CPT/HCPCS: 99283

== ENCOUNTER 2021-12-04 12:40 | Emergency (ER) | payer MEDICARE, MEDICAID, SELFPAY ==
[2021-12-04 13:34] VITALS: BP 140/95; PULSE 88; RESP 18; TEMP 36.9; O2SAT 99; BMI 23.6
--- NOTE | 2021-12-04 16:10 | ED_ITS ---
HPI - Skin/Abscess/Foreign Bdy <Corrine Garcia PA-C - Last Filed: 12/04/21 20:51> General Chief complaint: Skin/Abscess/Foreign Body Stated complaint: SPIDER BITE BEHIND LEFT EAR Time Seen by Provider: 12/04/21 15:44 Source: patient Mode of arrival: Ambulatory Limitations: no limitations History of Present Illness HPI narrative: 46-year-old male presents to the ED with a red lump behind his left ear for a few days. Patient states that he is on domicile currently. Patient thinks he might have been bit by an insect. Patient states some pain and sensitivity at the site of the bump which is behind the left ear. Patient denies purulent discharge, fever, chills, nausea, vomiting. Related Data Previous Rx's Medication Instructions Recorded sulfamethoxazole 800 1 tab PO BID 7 days #0 tabs 12/18/15 mg-trimethoprim 160 mg tablet albuterol sulfate 90 mcg/actuation 2 puff inhalation Q4-6H PRN 03/23/18 aerosol inhaler (Ventolin HFA) shortness of breath or wheezing #18 grams albuterol sulfate 90 mcg/actuation 2 puff inhalation Q4-6H PRN 10/20/20 aerosol inhaler shortness of breath or wheezing #8.5 grams prednisone 20 mg tablet 40 mg PO DAILY #10 tabs 10/20/20 albuterol sulfate 90 mcg/actuation 2 puff inhalation Q6H PRN 11/07/20 aerosol inhaler shortness of breath or wheezing #6.7 grams mupirocin 2 % topical ointment 1 applic topical BID 14 days #22 11/07/20 grams albuterol sulfate 90 mcg/actuation 2 inhalation inhalation QID PRN 12/15/20 aerosol inhaler (Ventolin HFA) shortness of breath or wheezing #6.7 grams benzonatate 100 mg capsule 100 mg PO TID PRN cough #20 caps 12/15/20 (Tesflor Luciano) methylprednisolone 4 mg tablets in See Rx Instructions PO .COMPLEX 12/15/20 a dose pack (Medrol (Ozzie)) #21 ea albuterol sulfate 90 mcg/actuation 2 puff inhalation Q6H PRN 01/20/21 aerosol inhaler shortness of breath or wheezing #6.7 grams albuterol sulfate 90 mcg/actuation 2 puff inhalation Q4-6H PRN 04/10/21 aerosol inhaler shortness of breath or wheezing #8.5 grams doxycycline hyclate 100 mg capsule 100 mg PO BID #20 caps 04/10/21 prednisone 20 mg tablet 40 mg PO DAILY #10 tabs 04/10/21 prednisone 20 mg tablet 40 mg PO DAILY #10 tabs 05/27/21 albuterol sulfate 90 mcg/actuation 2 inh inhalation QID PRN shortness 06/27/21 aerosol inhaler (Ventolin HFA) of breath or wheezing #6.7 grams methylprednisolone 4 mg tablets in See Rx Instructions PO .COMPLEX 06/27/21 a dose pack (Medrol (Ozzie)) #21 ea prednisone 10 mg tablet 10 mg PO DAILY #30 tabs 07/15/21 fluticasone propionate 230 2 inh inhalation BID #12 grams 08/18/21 mcg-salmeterol 21 mcg/actuation HFA inhaler albuterol sulfate 90 mcg/actuation 2 puff inhalation Q6H PRN 09/28/21 aerosol inhaler shortness of breath or wheezing #8.5 grams nirmatrelvir 300 mg (150 mg See Rx Instructions PO .COMPLEX 09/28/21 x2)-ritonavir 100 mg tablet,dose #30 tabs pack(EUA) (Paxlovid) ciprofloxacin HCl 750 mg tablet 750 mg PO BID 5 days #10 tabs 12/04/21 Allergies Allergy/AdvReac Type Severity Reaction Status Date / Time Penicillins Allergy Severe Unresponsiv Verified 12/04/21 13:37 e Review of Systems <Corrine Garcia PA-C - Last Filed: 12/04/21 20:51> Review of Systems ROS Unobtainable: All systems reviewed & are unremarkable except as noted in HPI and below Constitutional Constitutional: Denies chills, Denies fatigue, Denies fever(s), Denies frequent falls, Denies lethargy and Denies weakness Eyes Eyes: Denies change in vision, Denies eye discharge, Denies irritation and Denies loss of vision ENT Ears, Nose, Mouth, and Throat: Denies change in voice, Denies dizziness, Denies neck pain, Denies sore throat and Denies throat swelling Comments: Lump behind left ear Cardiovascular Cardiovascular: Denies chest pain, Denies irregular heart rhythm, Denies lightheadedness, Denies palpitations, Denies dyspnea, Denies dyspnea on exertion and Denies orthopnea Respiratory Respiratory: Denies cough, Denies dyspnea, Denies dyspnea on exertion and Denies wheezing Gastrointestinal Gastrointestinal: Denies abdominal pain, Denies change in bowel habits, Denies diarrhea, Denies nausea and Denies vomiting Genitourinary Genitourinary: Denies hematuria, Denies flank pain, Denies urinary incontinence and Denies urinary urgency Musculoskeletal Musculoskeletal: Denies back pain, Denies muscle weakness, Denies neck pain, Denies numbness and Denies tingling Integumentary/Breasts Skin/Breast: Denies pruritus, Denies erythema, Denies rash and Denies wounds Neurologic Neurologic: Denies behavioral changes, Denies confusion, Denies dizziness, Denies frequent falls, Denies loss of vision, Denies numbness, Denies tingling and Denies weakness Psychiatric Psychiatric: Denies anxiety, Denies behavioral changes, Denies confusion, Denies depression, Denies homicidal ideation and Denies suicidal ideation Endocrine Endocrine: Denies fatigue, Denies flushing and Denies palpitations Hematologic/Lymphatic Hematologic/Lymphatic: Denies easy bruising Allergic/Immunologic Allergic/Immunologic: Denies urticaria, Denies throat swelling and Denies wheezing Patient History <Corrine Garcia PA-C - Last Filed: 12/04/21 20:51> Medical History Asthma Social History Smoking Status: Current every day smoker Smoking Status: Current every day smoker tobacco type: cigarettes and vaping alcohol intake frequency: 3 or more drinks per day Substance Use Type: marijuana Exam <Corrine Garcia PA-C - Last Filed: 12/04/21 20:51> Narrative Exam Narrative: Const General:?cooperative, healthy appearing and comfortable [facility] Head:?normal to inspection Ears:?hearing grossly normal bilaterally; erythematous bump, slightly sensitive to touch behind the left ear. No purulent discharge. Nose:?external nose normal Face and sinus:?normal facial exam and sinuses nontender Mouth:?oral mucosae normal Throat:?posterior oropharynx normal Eyes General:?appearance normal, both eyes and all related structures Neck Neck:?normal visual inspection and no lymphadenopathy noted Resp Effort & Inspection:?normal respiratory effort Auscultation:?clear to auscultation bilaterally Cardio Rate:?regular rate Rhythm:?regular rhythm Neuro General:?patient alert, patient awake and patient oriented x3 Initial Vital Signs Initial Vital Signs: Vital Signs Temperature 98.5 F 12/04/21 13:34 Pulse Rate 88 12/04/21 13:34 Respiratory Rate 18 12/04/21 13:34 Blood Pressure 140/95 H 12/04/21 13:34 Pulse Oximetry 99 12/04/21 13:34 Oxygen Delivery Method 12/04/21 13:34 <Braden Herrera DO - Last Filed: 12/07/21 07:31> Initial Vital Signs Initial Vital Signs: Vital Signs Temperature 98.5 F 12/04/21 13:34 Pulse Rate 88 12/04/21 13:34 Respiratory Rate 18 12/04/21 13:34 Blood Pressure 140/95 H 12/04/21 13:34 Pulse Oximetry 99 12/04/21 13:34 Oxygen Delivery Method 12/04/21 13:34 Course <Corrine Garcia PA-C - Last Filed: 12/04/21 20:51> Vital Signs Vital signs: Vital Signs - 8 hr 12/04/21 13:34 Temperature 98.5 F Pulse Rate 88 Respiratory Rate 18 Blood Pressure 140/95 H Pulse Oximetry 99 Oxygen Delivery Method Room Air <DO Prabhakar Quevedo Last Filed: 12/07/21 07:31> Vital Signs Vital signs: Vital Signs - 8 hr 12/04/21 13:34 Temperature 98.5 F Pulse Rate 88 Respiratory Rate 18 Blood Pressure 140/95 H Pulse Oximetry 99 Oxygen Delivery Method Room Air MDM - Skin/Abscess/Foreign Bdy <Corrine Garcia PA-C - Last Filed: 12/04/21 20:51> MDM Narrative Medical decision making narrative: 46-year-old male presents to the ED with a red lump behind his left ear for a few days. Concern for auricular hematoma versus cellulitis versus abscess. More likely cellulitis, will treat with ciprofloxacin. Patient agrees to return to the ED if symptoms worsen. Discharge Plan Departure Patient Disposition: Home Clinical Impression: Cellulitis Instructions: DI for Cellulitis -- Adult Activity Restrictions/Additional Instructions: You were evaluated in the ED today for a insect bite. You are being prescribed antibiotics for 5 days. Please complete the full dose of antibiotics. Return to the ED if your symptoms worsen, you develop a fever, chills. Please follow- up with your primary care doctor as soon as possible. Prescriptions: New ciprofloxacin HCl 750 mg tablet 750 mg PO BID 5 Days Qty: 10 0RF No Action mupirocin 2 % ointment 1 applic topical BID 14 Days Qty: 22 1RF albuterol sulfate 90 mcg/actuation HFA aerosol inhaler 2 puff inhalation Q6H PRN (Reason: shortness of breath or wheezing) Qty: 6.7 3RF albuterol sulfate 90 mcg/actuation HFA aerosol inhaler 2 puff inhalation Q6H PRN (Reason: shortness of breath or wheezing) Qty: 6.7 3RF sulfamethoxazole-trimethoprim 800 MG/160 MG tablet 1 tab PO BID 7 Days Qty: 0 0RF albuterol sulfate [Ventolin HFA] 90 mcg/actuation HFA aerosol inhaler 2 puff INHALATION Q4-6H PRN (Reason: shortness of breath or wheezing) Qty: 18 0RF prednisone 10 mg tablet 10 mg PO DAILY Qty: 30 0RF Rx Instructions: day 1-3: 40 mg once a day day 4-6: 30 mg once a day day 7-9: 20 mg once a day day 10-12: 10 mg once a day fluticasone propion-salmeterol 230-21 mcg/actuation HFA aerosol inhaler 2 inh inhalation BID Qty: 12 3RF prednisone 20 mg tablet 40 mg PO DAILY Qty: 10 0RF albuterol sulfate 90 mcg/actuation HFA aerosol inhaler 2 puff INHALATION Q4-6H PRN (Reason: shortness of breath or wheezing) Qty: 8.5 0RF benzonatate [Tessalon Perles] 100 mg capsule 100 mg PO TID PRN (Reason: cough) Qty: 20 0RF methylprednisolone [Medrol (Ozzie)] 4 mg tablets,dose pack See Rx Instructions .ROUTE .COMPLEX Qty: 21 0RF Rx Instructions: orally per package directions albuterol sulfate [Ventolin HFA] 90 mcg/actuation HFA aerosol inhaler 2 inhalation INHALATION QID PRN (Reason: shortness of breath or wheezing) Qty: 6.7 0RF doxycycline hyclate 100 mg capsule 100 mg PO BID Qty: 20 0RF prednisone 20 mg tablet 40 mg PO DAILY Qty: 10 0RF albuterol sulfate 90 mcg/actuation HFA aerosol inhaler 2 puff INHALATION Q4-6H PRN (Reason: shortness of breath or wheezing) Qty: 8.5 0RF prednisone 20 mg tablet 40 mg PO DAILY Qty: 10 0RF methylprednisolone [Medrol (Ozzie)] 4 mg tablets,dose pack See Rx Instructions PO .COMPLEX Qty: 21 0RF Rx Instructions: orally per package directions albuterol sulfate [Ventolin HFA] 90 mcg/actuation HFA aerosol inhaler 2 inh inhalation QID PRN (Reason: shortness of breath or wheezing) Qty: 6.7 0RF Paxlovid (EUA) 150 mg x 2- 100 mg tablet See Rx Instructions .ROUTE .COMPLEX Qty: 30 0RF Rx Instructions: take TWO 150 mg tablets of nirmatrelvir with ONE 100 mg tablet of ritonavir twice daily for 5 days albuterol sulfate 90 mcg/actuation HFA aerosol inhaler 2 puff inhalation Q6H PRN (Reason: shortness of breath or wheezing) Qty: 8.5 6RF Visit Report Forms: Patient Portal/API <Braden Herrera, DO - Last Filed: 12/07/21 07:31> Cosign ED Attending Cosignature Attestation: Dr Herrera Co-Sign Statement: I was available for consultation during this patient's emergency department visit. This chart is signed by myself for administrative purposes only. I did not have direct contact with this patient during this visit. They were seen independently by the APC.
== END 2021-12-04 16:45 | disposition home or self-care (01) ==
PROVIDERS: Emergency Provider Student in an Organized Health Care Education/Training Program
DX: H60.12 Cellulitis of left external ear (principal)
CPT/HCPCS: 99281

== ENCOUNTER 2021-12-24 05:59 | Emergency (ER) | payer MEDICARE, MEDICAID, SELFPAY ==
[2021-12-24] VITALS (7 sets, daily range): BP systolic 140–144; BP diastolic 90–93; PULSE 98–126; RESP 24; TEMP 36.6; O2SAT 91–98; BMI 24.3
[2021-12-24] MEDS: ALBUTEROL 1.25 MG/3 ML NEB (PEDIATRIC) INH (06:17)
--- NOTE | 2021-12-24 06:40 | DI.RAD.S_ITS ---
PROCEDURE: XR CHEST 1V INDICATIONS: asthma exacerbation TECHNIQUE: One view of the chest was acquired. COMPARISON: [facility], CR, XR CHEST 2V, 09/28/2021, 10:33. [facility], CR, XR CHEST 1V, 07/07/2021, 6:12. FINDINGS: Surgical changes and devices: None. Lungs and pleura: Lungs are clear. Lung volumes are somewhat prominent. No pleural effusions or pneumothorax. Mediastinum: Mediastinal contours appear normal. Heart size is normal. Bones and chest wall: No suspicious bony lesions. Overlying soft tissues appear unremarkable. IMPRESSION: No acute cardiopulmonary abnormality. Dictated by: Randall Wheatley M.D. on 12/24/2021 at 6:54 Approved by: Randall Wheatley M.D. on 12/24/2021 at 6:56
[2021-12-24 06:49] LABS: Add Manual Diff / Slide Review NO; Basophils Absolute Auto 0 /uL (0-100); Basophils Percent Auto 0.9 % (0-2); Eosinophils Absolute Auto 200 /uL (0-450); Eosinophils Percent Auto 4.6 % (2-4); Hemoglobin 15.7 g/dL (13.5-17.5); Lymphocytes Absolute Auto 1300 /uL (1100-4500); Lymphocytes Percent Auto 34.9 % (25-40); Mean Corpuscular HGB Conc 34.9 % (30-36); Mean Corpuscular Hemoglobin 32.9 PG (26-34); Mean Corpuscular Volume 94.2 fL (80-100); Monocytes Absolute Auto 400 /uL (0-900); Monocytes Percent Auto 10.3 % (3-14); Neutrophils Absolute Auto 1900 /uL (1500-7000); Neutrophils Percent Auto 49.3 % (50-75); Platelet Count 317 X10^3/uL (150-400); Red Blood Cell Count 4.77 X10^6/uL (4.5-5.9); Red Cell Distribution Width 12.7 % (11.6-14.8); White Blood Cell Count 3.8 X10^3/uL (4.5-11.0)
[2021-12-24] MEDS: methylPREDNISolone 125 MG/2 ML VIAL IV (06:51)
[2021-12-24 06:52] LABS: Alanine Aminotransferase 40 IU/L (<50); Albumin 4.4 g/dL (3.5-5.0); Albumin Globulin Ratio 1.6 (1.0-2.8); Alkaline Phosphatase 51 U/L (38-126); Aspartate Aminotransferase 31 IU/L (17-59); BUN Creatinine Ratio 13.6 (6-22); Bilirubin Total 0.5 mg/dL (0.2-1.3); Blood Urea Nitrogen 12 mg/dL (9-20); Calcium 8.7 mg/dL (8.4-10.2); Carbon Dioxide 26 mmol/L (22-32); Chloride 106 mmol/L (98-107); Estimated Glomerular Filt Rate > 60 mL/min (>60); Globulin 2.8 g/dL (1.7-4.1); Glucose 94 mg/dL (70-100); HEMOLYSIS < 15 (0-50); Lipase 70 U/L (23-300); Potassium 4.3 mmol/L (3.4-5.1); Sodium 141 mmol/L (137-145); Total Protein 7.2 g/dL (6.3-8.2)
--- NOTE | 2021-12-24 06:58 | ED.SOB ---
HPI - SOB/Dyspnea General Chief Complaint: Shortness of Breath/Dyspnea Stated Complaint: sob Time Seen by Provider: 12/24/21 06:40 Source: patient Mode of arrival: Ambulatory Limitations: no limitations History of Present Illness HPI Narrative: 38-year-old male daily smoker with history of asthma and COPD presents with a chief complaint of wheezing and overall shortness of breath since waking this morning. He states he felt fine yesterday though he is had some upper respiratory symptoms including runny nose and nasal congestion with occasional cough, rarely with sputum production. He denies any fever or chills. He is had no nausea, vomiting or diarrhea. He denies any recent travel or chest pain. He states he has not been using his maintenance inhaler and ran out of his albuterol yesterday Related Data Previous Rx's Medication Instructions Recorded sulfamethoxazole 800 1 tab PO BID 7 days #0 tabs 12/18/15 mg-trimethoprim 160 mg tablet albuterol sulfate 90 mcg/actuation 2 puff inhalation Q4-6H PRN 03/23/18 aerosol inhaler (Ventolin HFA) shortness of breath or wheezing #18 grams albuterol sulfate 90 mcg/actuation 2 puff inhalation Q4-6H PRN 10/20/20 aerosol inhaler shortness of breath or wheezing #8.5 grams prednisone 20 mg tablet 40 mg PO DAILY #10 tabs 10/20/20 albuterol sulfate 90 mcg/actuation 2 puff inhalation Q6H PRN 11/07/20 aerosol inhaler shortness of breath or wheezing #6.7 grams mupirocin 2 % topical ointment 1 applic topical BID 14 days #22 11/07/20 grams albuterol sulfate 90 mcg/actuation 2 inhalation inhalation QID PRN 12/15/20 aerosol inhaler (Ventolin HFA) shortness of breath or wheezing #6.7 grams benzonatate 100 mg capsule 100 mg PO TID PRN cough #20 caps 12/15/20 (Tesflor Luciano) methylprednisolone 4 mg tablets in See Rx Instructions PO .COMPLEX 12/15/20 a dose pack (Medrol (Ozzie)) #21 ea albuterol sulfate 90 mcg/actuation 2 puff inhalation Q6H PRN 01/20/21 aerosol inhaler shortness of breath or wheezing #6.7 grams albuterol sulfate 90 mcg/actuation 2 puff inhalation Q4-6H PRN 04/10/21 aerosol inhaler shortness of breath or wheezing #8.5 grams doxycycline hyclate 100 mg capsule 100 mg PO BID #20 caps 04/10/21 prednisone 20 mg tablet 40 mg PO DAILY #10 tabs 04/10/21 prednisone 20 mg tablet 40 mg PO DAILY #10 tabs 05/27/21 albuterol sulfate 90 mcg/actuation 2 inh inhalation QID PRN shortness 06/27/21 aerosol inhaler (Ventolin HFA) of breath or wheezing #6.7 grams methylprednisolone 4 mg tablets in See Rx Instructions PO .COMPLEX 06/27/21 a dose pack (Medrol (Ozzie)) #21 ea prednisone 10 mg tablet 10 mg PO DAILY #30 tabs 07/15/21 fluticasone propionate 230 2 inh inhalation BID #12 grams 08/18/21 mcg-salmeterol 21 mcg/actuation HFA inhaler albuterol sulfate 90 mcg/actuation 2 puff inhalation Q6H PRN 09/28/21 aerosol inhaler shortness of breath or wheezing #8.5 grams nirmatrelvir 300 mg (150 mg See Rx Instructions PO .COMPLEX 09/28/21 x2)-ritonavir 100 mg tablet,dose #30 tabs pack(EUA) (Paxlovid) azithromycin 250 mg tablet See Rx Instructions PO .COMPLEX #6 12/24/21 tabs prednisone 10 mg tablet See Rx Instructions .Route 12/24/21 .COMPLEX #30 tabs Allergies Allergy/AdvReac Type Severity Reaction Status Date / Time Penicillins Allergy Severe Unresponsiv Verified 12/04/21 13:37 e Review of Systems Review of Systems Narrative: GENERAL: See HPI HEENT: Denies sinus pain, ear pain, sore throat, difficulty swallowing, dizziness. RESPIRATORY: See HPI CARDIOVASCULAR: Denies chest pain, palpitations, orthopnea, edema, GASTROINTESTINAL: Denies nausea, vomiting, abdominal pain, diarrhea, constipation, melena. : Denies dysuria, frequency, incontinence, hematuria, urinary retention. MUSCULOSKELETAL: denies weakness, joint pain, or bony pain SKIN: Denies rash, skin lesions, or other NEUROLOGIC: Denies weakness, headache, numbness, change in speech, confusion, seizures, incoordination. PSYCHIATRIC: No concerning psychosocial issues. 12 point review of systems is negative except for those stated above Patient History Medical History Asthma Social History Smoking Status: Current every day smoker Smoking Status: Current every day smoker tobacco type: cigarettes and vaping alcohol intake frequency: 3 or more drinks per day Substance Use Type: marijuana Exam Narrative Exam Narrative: GENERAL: [46] year old patient appears stated age. Well-developed patient, in mild distress. HEAD: Atraumatic. Normocephalic. EYES: Pupils equal round and reactive. Extraocular motions intact. No scleral icterus. No injection or drainage. ENT: Nose without bleeding, purulent drainage. Throat without erythema, tonsillar hypertrophy or exudate. Airway patent. NECK: Trachea midline. Non tender CARDIOVASCULAR: Regular rate and rhythm without murmurs, gallops, or rubs. RESPIRATORY: Increased work of breathing decreased breath sounds bilaterally with prolonged expiratory phase and expiratory wheezes most notable in bilateral bases. No rales or rhonchi GASTROINTESTINAL: Abdomen soft, non-tender, nondistended. EXTREMITIES: No edema or joint tenderness. BACK: Nontender without deformity or crepitance. No flank tenderness. NEURO: AOx3. SKIN: No rash or erythema of visible areas Initial Vital Signs Initial Vital Signs: Vital Signs Temperature 97.8 F 12/24/21 06:14 Pulse Rate 125 H 12/24/21 06:14 Respiratory Rate 24 12/24/21 06:14 Blood Pressure 144/93 H 12/24/21 06:14 Pulse Oximetry 91 12/24/21 06:14 Oxygen Delivery Method 12/24/21 06:14 Course Orders Ordered: ED Orders 12/24/21 06:21 CBC Auto Diff [Complete Blood Count AUTO DIFF] Stat CMP [Comprehensive Metabolic Panel] Stat Lipase Stat 12/24/21 06:40 Chest [XR chest 1V] Stat 12/24/21 06:53 COVID19 -Nasal RAPID/Pre-Proc Stat Albuterol (Albuterol Hfa Prepack) 1 box MISC SEEINSTR ONE Stop: 12/24/21 08:09 Discontinued Medications Albuterol/Ipratropium (Albuterol/Ipratropium 3 Ml Ampul) 3 ml INH NOW ONE Stop: 12/24/21 07:46 Last Admin: 12/24/21 07:48 Dose: 3 ml Documented By: PAULETTE Methylprednisolone (Methylprednisolone 125 Mg/2 Ml Vial) 125 mg IV NOW ONE Stop: 12/24/21 06:41 Last Admin: 12/24/21 06:51 Dose: 125 mg Documented By: KARUNA Vital Signs Vital signs: Vital Signs - 8 hr 12/24/21 06:14 12/24/21 06:26 Temperature 97.8 F Pulse Rate 125 H 110 H Respiratory Rate 24 24 Blood Pressure 144/93 H Pulse Oximetry 91 95 Oxygen Delivery Method Room Air Room Air MDM - SOB/Dyspnea Lab Data Result diagrams: 12/24/21 06:21 12/24/21 06:21 Labs: Lab Results 12/24/21 12/24/21 12/24/21 Range/Units 06:21 06:21 06:53 WBC 3.8 L (4.5-11.0) X10^3/uL RBC 4.77 (4.5-5.9) X10^6/uL Hgb 15.7 (13.5-17.5) g/dL Hct 45.0 (41-53) % MCV 94.2 (80-100) fL MCH 32.9 (26-34) PG MCHC 34.9 (30-36) % RDW 12.7 (11.6-14.8) % Plt Count 317 (150-400) X10^3/uL Neut % (Auto) 49.3 L (50-75) % Lymph % (Auto) 34.9 (25-40) % Alpine % (Auto) 10.3 (3-14) % Eos % (Auto) 4.6 H (2-4) % Baso % (Auto) 0.9 (0-2) % Neut # (Auto) 1900 (9955-9589) /uL Lymph # (Auto) 1300 (2183-0481) /uL Alpine # (Auto) 400 (0-900) /uL Eos # (Auto) 200 (0-450) /uL Baso # (Auto) 0 (0-100) /uL Sodium 141 (137-145) mmol/L Potassium 4.3 (3.4-5.1) mmol/L Chloride 106 (98-107) mmol/L Carbon Dioxide 26 (22-32) mmol/L BUN 12 (9-20) mg/dL Creatinine 0.88 (0.66-1.25) mg/dL Estimated GFR > 60 (>60) mL/min BUN/Creatinine Ratio 13.6 (6-22) Glucose 94 (70-100) mg/dL Calcium 8.7 (8.4-10.2) mg/dL Total Bilirubin 0.5 (0.2-1.3) mg/dL AST 31 (17-59) IU/L ALT 40 (<50) IU/L Alkaline Phosphatase 51 (38-126) U/L Total Protein 7.2 (6.3-8.2) g/dL Albumin 4.4 (3.5-5.0) g/dL Globulin 2.8 (1.7-4.1) g/dL Albumin/Globulin Ratio 1.6 (1.0-2.8) Lipase 70 (23-300) U/L SARS-CoV-2 (PCR) Negative (Negative) Imaging Data Chest x-ray: Radiologist's Impression: Close Chest X-Ray (Signed) Randall Wheatley - 12/24/21 Chest X-Ray (Signed) Micki Islas - 09/28/21 Chest X-Ray (Signed) Micki Islas - 07/07/21 Chest CTA (Signed) Arvind Jamil - 04/10/21 Chest X-Ray (Signed) Micki Islas - 04/10/21 Chest X-Ray (Signed) Micki Islas - 10/20/20 Launch?[place] [address] XRay Report Signed Patient: Nain Smith MR#: [id number] : 1975 Acct:[id number] Age/Sex: 46 / M Date of Service: 12/24/21 Loc: ED Accession Number: [id number] ?? Procedure: XR chest 1V Ordering Provider: Milagro Collins D.O. PROCEDURE:? XR CHEST 1V ? INDICATIONS:? asthma exacerbation ? TECHNIQUE:? One view of the chest was acquired.? ? COMPARISON:? [facility], CR, XR CHEST 2V, 09/28/2021, 10:33.? [facility], CR, XR CHEST 1V, 07/07/2021, 6:12. ? FINDINGS:? ? Surgical changes and devices:? None.? ? Lungs and pleura:? Lungs are clear.? Lung volumes are somewhat prominent.? No pleural effusions or pneumothorax.? ? Mediastinum:? Mediastinal contours appear normal.? Heart size is normal.? ? Bones and chest wall:? No suspicious bony lesions.? Overlying soft tissues appear unremarkable.? ? IMPRESSION:? No acute cardiopulmonary abnormality. ? ? ? Dictated by: Randall Wheatley M.D. on 12/24/2021 at 6:54 ? ? Approved by: Randall Wheatley M.D. on 12/24/2021 at 6:56 ? MDM Narrative Medical decision making narrative: Patient with significant improvement after above-stated therapies. Work of breathing tremendously improved. Pulse ox in the upper 90s. Patient has a clear chest x-ray. Return precautions discussed and questions answered to his apparent satisfaction Discharge Plan Departure Patient Disposition: Home Clinical Impression: Acute exacerbation of chronic obstructive airways disease, Atypical pneumonia Instructions: DI for Chronic Obstructive Pulmonary Disease Activity Restrictions/Additional Instructions: *You have been diagnosed with [COPD exacerbation and possible atypical pneumonia] *What to do: *Please continue to take your regular medications as directed. [ x] New medication prescriptions sent to your pharmacy: [[facility] ] [ ] New medication written as a paper prescription [ ] No new medications given *Please follow up with your primary care provider in 2-3 days, call for an appointment. Let them know you were seen in the Emergency Department and that we ask that you be seen in follow up. We will electronically transmit a record of today's note if your PCP is in our system *If you do not have a primary care provider please contact the [facility] Resource line at [phone]. They will ask some questions about your medical history and help get you set up with a doctor in the community. *Return to Emergency Department if you should have any new, worsening or concerning symptoms, such as [fever greater than 101 F, shaking chills, worsening pain, persistent vomiting or other bothersome symptoms] Prescriptions: New prednisone 10 mg tablet See Rx Instructions .ROUTE .COMPLEX Qty: 30 0RF Rx Instructions: Day 1,2,3: 40mg PO Daily Day 4,5,6: 30mg PO Daily Day 7,8,9: 20mg PO Daily Day 10,11,12: 10mg PO Daily #30 azithromycin 250 mg tablet See Rx Instructions .ROUTE .COMPLEX Qty: 6 0RF Rx Instructions: For 250 mg dose pack: take 500 mg today (day 1), then 250 mg for 4 days (days 2-5) No Action mupirocin 2 % ointment 1 applic topical BID 14 Days Qty: 22 1RF albuterol sulfate 90 mcg/actuation HFA aerosol inhaler 2 puff inhalation Q6H PRN (Reason: shortness of breath or wheezing) Qty: 6.7 3RF albuterol sulfate 90 mcg/actuation HFA aerosol inhaler 2 puff inhalation Q6H PRN (Reason: shortness of breath or wheezing) Qty: 6.7 3RF sulfamethoxazole-trimethoprim 800 MG/160 MG tablet 1 tab PO BID 7 Days Qty: 0 0RF albuterol sulfate [Ventolin HFA] 90 mcg/actuation HFA aerosol inhaler 2 puff INHALATION Q4-6H PRN (Reason: shortness of breath or wheezing) Qty: 18 0RF prednisone 10 mg tablet 10 mg PO DAILY Qty: 30 0RF Rx Instructions: day 1-3: 40 mg once a day day 4-6: 30 mg once a day day 7-9: 20 mg once a day day 10-12: 10 mg once a day fluticasone propion-salmeterol 230-21 mcg/actuation HFA aerosol inhaler 2 inh inhalation BID Qty: 12 3RF prednisone 20 mg tablet 40 mg PO DAILY Qty: 10 0RF albuterol sulfate 90 mcg/actuation HFA aerosol inhaler 2 puff INHALATION Q4-6H PRN (Reason: shortness of breath or wheezing) Qty: 8.5 0RF benzonatate [Tessalon Perles] 100 mg capsule 100 mg PO TID PRN (Reason: cough) Qty: 20 0RF methylprednisolone [Medrol (Ozzie)] 4 mg tablets,dose pack See Rx Instructions .ROUTE .COMPLEX Qty: 21 0RF Rx Instructions: orally per package directions albuterol sulfate [Ventolin HFA] 90 mcg/actuation HFA aerosol inhaler 2 inhalation INHALATION QID PRN (Reason: shortness of breath or wheezing) Qty: 6.7 0RF doxycycline hyclate 100 mg capsule 100 mg PO BID Qty: 20 0RF prednisone 20 mg tablet 40 mg PO DAILY Qty: 10 0RF albuterol sulfate 90 mcg/actuation HFA aerosol inhaler 2 puff INHALATION Q4-6H PRN (Reason: shortness of breath or wheezing) Qty: 8.5 0RF prednisone 20 mg tablet 40 mg PO DAILY Qty: 10 0RF methylprednisolone [Medrol (Ozzie)] 4 mg tablets,dose pack See Rx Instructions PO .COMPLEX Qty: 21 0RF Rx Instructions: orally per package directions albuterol sulfate [Ventolin HFA] 90 mcg/actuation HFA aerosol inhaler 2 inh inhalation QID PRN (Reason: shortness of breath or wheezing) Qty: 6.7 0RF Paxlovid (EUA) 150 mg x 2- 100 mg tablet See Rx Instructions .ROUTE .COMPLEX Qty: 30 0RF Rx Instructions: take TWO 150 mg tablets of nirmatrelvir with ONE 100 mg tablet of ritonavir twice daily for 5 days albuterol sulfate 90 mcg/actuation HFA aerosol inhaler 2 puff inhalation Q6H PRN (Reason: shortness of breath or wheezing) Qty: 8.5 6RF
[2021-12-24 07:10] LABS: COVID19 -Nasal RAPID Negative (Negative)
[2021-12-24] MEDS: ALBUTEROL/IPRATROPIUM 3 ML AMPUL INH (07:48)
[2021-12-24] MEDS: ALBUTEROL HFA PREPACK 1 BOX MISC (08:19)
== END 2021-12-24 08:32 | disposition home or self-care (01) ==
PROVIDERS: Emergency Medicine; Emergency Provider Emergency Medicine
DX: J44.1 Chronic obstructive pulmonary disease with (acute) exacerbation (principal); J18.9 Pneumonia, unspecified organism; Z20.822 Contact with and (suspected) exposure to COVID-19
CPT/HCPCS: 36415; 71045; 80053; 83690; 85025; 87635; 96374; 99284; C9803; J2930; J7613

== ENCOUNTER 2022-01-18 10:25 | Emergency (ER) | payer MEDICARE, MEDICAID, SELFPAY ==
[2022-01-18 10:30] VITALS: BP 175/115; PULSE 120; RESP 20; TEMP 36.1; BMI 24.3
--- NOTE | 2022-01-18 10:40 | ED.GENADULT ---
HPI - General Adult General Chief complaint: Shortness of Breath/Dyspnea Stated complaint: SOB Time Seen by Provider: 01/18/22 10:36 Source: patient Mode of arrival: Ambulatory Limitations: no limitations History of Present Illness HPI narrative: 46-year-old male. History of asthma. Is homeless. Does smoke. I have evaluated him in the past. He is here for progressively worsening shortness of breath over the past couple days. Also wheezing. He does have 1 inhaler but it is running out a does not have any refills. No fevers. No productive cough. No chest pain. Related Data Previous Rx's Medication Instructions Recorded fluticasone propionate 230 2 inh inhalation BID #12 grams 08/18/21 mcg-salmeterol 21 mcg/actuation HFA inhaler albuterol sulfate 90 mcg/actuation 2 puff inhalation Q6H PRN 09/28/21 aerosol inhaler shortness of breath or wheezing #8.5 grams albuterol sulfate 90 mcg/actuation 2 puff inhalation Q4-6H PRN 01/18/22 aerosol inhaler shortness of breath or wheezing #8.5 grams prednisone 20 mg tablet 40 mg PO DAILY 6 days #12 tabs 01/18/22 Allergies Allergy/AdvReac Type Severity Reaction Status Date / Time Penicillins Allergy Severe Unresponsiv Verified 01/18/22 11:07 e Review of Systems Constitutional Constitutional: Reports system reviewed and no additional complaints, except as documented Cardiovascular Cardiovascular: Reports system reviewed and no additional complaints, except as documented Respiratory Respiratory: Reports system reviewed and no additional complaints, except as documented Integumentary/Breasts Skin/Breast: Reports system reviewed and no additional complaints, except as documented Allergic/Immunologic Allergic/Immunologic: Reports system reviewed and no additional complaints, except as documented Patient History Medical History Asthma Social History Smoking Status: Current every day smoker Smoking Status: Current every day smoker tobacco type: cigarettes and vaping alcohol intake frequency: 3 or more drinks per day Substance Use Type: marijuana Exam Initial Vital Signs Initial Vital Signs: Vital Signs Temperature 97.0 F L 01/18/22 10:30 Pulse Rate 120 H 01/18/22 10:30 Respiratory Rate 20 01/18/22 10:30 Blood Pressure 175/115 H 01/18/22 10:30 HENMT Head: normal to inspection and normocephalic Resp Effort & Inspection: audible wheezes, cough, labored and tachypneic Cardio Rate: regular rate Rhythm: regular rhythm Skin General: no rashes or lesions noted Neuro General: patient alert, patient awake and moves all extremities Extrem General: normal to inspection Course Orders Ordered: Discontinued Medications Albuterol/Ipratropium (Albuterol/Ipratropium 3 Ml Ampul) 3 ml INH NOW ONE Stop: 01/18/22 10:39 Last Admin: 01/18/22 10:41 Dose: 3 ml Documented By: RHONDA Albuterol/Ipratropium (Albuterol/Ipratropium 3 Ml Ampul) 3 ml INH NOW ONE Stop: 01/18/22 10:45 Last Admin: 01/18/22 10:46 Dose: 3 ml Documented By: IRAM Prednisone (Prednisone 20 Mg Tablet) 40 mg PO NOW ONE Stop: 01/18/22 10:39 Last Admin: 01/18/22 10:47 Dose: 40 mg Documented By: RHONDA Vital Signs Vital signs: Vital Signs - 8 hr 01/18/22 10:30 01/18/22 10:47 01/18/22 10:45 Temperature 97.0 F L Pulse Rate 120 H 108 H 107 H Respiratory Rate 20 20 18 Blood Pressure 175/115 H 173/98 H Pulse Oximetry 95 96 Oxygen Delivery Method Room Air Room Air Medical Decision Making MDM Narrative Medical decision making narrative: After 2 nebulizer treatments patient states he feels much better. He is still having some wheezing but would like to hold on any further treatments for now. He is observed for period of time and his symptoms did not worsen. Plan be is to discharge home with a refill on his albuterol inhaler. Will also put him on steroids the next couple days. He was given return precautions and follow-up instructions. He expressed understanding and agreement. Discharge Plan Departure Patient Disposition: Home Clinical Impression: Asthma with exacerbation Instructions: Asthma -- Adult Activity Restrictions/Additional Instructions: A prescription for your albuterol inhaler and also steroids was sent to [facility]. Please pick them up tomorrow and start taking them as directed. Return to the emergency department for any new or worsening symptoms. Prescriptions: New albuterol sulfate 90 mcg/actuation HFA aerosol inhaler 2 puff inhalation Q4-6H PRN (Reason: shortness of breath or wheezing) Qty: 8.5 0RF prednisone 20 mg tablet 40 mg PO DAILY 6 Days Qty: 12 0RF No Action fluticasone propion-salmeterol 230-21 mcg/actuation HFA aerosol inhaler 2 inh inhalation BID Qty: 12 3RF albuterol sulfate 90 mcg/actuation HFA aerosol inhaler 2 puff inhalation Q6H PRN (Reason: shortness of breath or wheezing) Qty: 8.5 6RF
[2022-01-18] MEDS: ALBUTEROL/IPRATROPIUM 3 ML AMPUL INH ×2 (10:41→10:46)
[2022-01-18 10:45] VITALS: BP 173/98; PULSE 107; RESP 18; O2SAT 96
[2022-01-18 10:47] VITALS: PULSE 108; RESP 20; O2SAT 95
[2022-01-18] MEDS: predniSONE 20 MG TABLET 40 MG PO (10:47)
[2022-01-18 11:43] VITALS: BP 135/84; PULSE 101; RESP 18; O2SAT 99
--- NOTE | 2022-01-24 12:57 | CM.SWNOTE ---
ROOM SERVICE ATTENDANT f/u Note ROOM SERVICE ATTENDANT receives f/u consult for patient to assist in setting up PCP appt. ROOM SERVICE ATTENDANT attempts to call patient twice but phone number is not in service and there are no other numbers listed. ED ROOM SERVICE ATTENDANT to attempt to assist patient at next ED encounter. Ana Maria Cutler, [employer]
== END 2022-01-18 11:45 | disposition home or self-care (01) ==
PROVIDERS: Emergency Provider Emergency Medicine
DX: J45.901 Unspecified asthma with (acute) exacerbation (principal); F17.210 Nicotine dependence, cigarettes, uncomplicated
CPT/HCPCS: 94640; 99283

== ENCOUNTER 2022-03-24 22:33 | Emergency (ER) | payer MEDICARE, MEDICAID, SELFPAY ==
[2022-03-24 22:42] VITALS: BP 159/90; PULSE 120; RESP 18; TEMP 36.6; O2SAT 94; BMI 22.1
--- NOTE | 2022-03-24 22:53 | DI.RAD.S_ITS ---
PROCEDURE: XR CHEST 2V INDICATIONS: Shortness of breath TECHNIQUE: 2 views of the chest were acquired. COMPARISON: [facility], CR, XR CHEST 1V, 12/24/2021, 7:06. [facility], CR, XR CHEST 2V, 09/28/2021, 10:33. FINDINGS: Surgical changes and devices: None. Lungs and pleura: Lungs are abnormal, with severe COPD and pulmonary hyperexpansion previously documented. No pleural effusions or pneumothorax. Mediastinum: Mediastinal contours are normal. Heart size is normal. Bones and chest wall: No suspicious bony abnormalities. Soft tissues appear unremarkable. IMPRESSION: Severe COPD, no pneumonia found, no pneumothorax present. Dictated by: Curtis Anderson M.D. on 03/24/2022 at 23:37 Approved by: Curtis Anderson M.D. on 03/24/2022 at 23:38
[2022-03-24] MEDS: ALBUTEROL/IPRATROPIUM 3 ML AMPUL INH (23:02)
[2022-03-24 23:39] LABS: Influenza A - CEPHEID Flu A NEGATIVE (NEGATIVE); Influenza B - CEPHEID Flu B NEGATIVE (NEGATIVE); Respiratory Syncytial Virus Negative (Negative)
[2022-03-24 23:43] LABS: COVID-19 CEPHEID 4-PLEX PCR Negative (Negative)
--- NOTE | 2022-03-25 00:51 | ED.GENADULT ---
HPI - General Adult General Chief complaint: Shortness of Breath/Dyspnea Stated complaint: Lung infection, SOB Time Seen by Provider: 03/25/22 00:50 Source: patient Mode of arrival: Ambulatory Limitations: no limitations History of Present Illness HPI narrative: Patient is a 47-year-old male. Has a history of asthma. Is homeless. I have evaluated in the emergency department multiple times in the past. He comes in today for concerns of pneumonia. Over the past couple days he is had subjective fevers. Productive cough. Shortness of breath. He is out of his albuterol inhaler. He can not get a refill until the beginning of next month. No recent travel. No chest pain. No sore throat. No URI like symptoms. Related Data Previous Rx's Medication Instructions Recorded fluticasone propionate 230 2 inh inhalation BID #12 grams 08/18/21 mcg-salmeterol 21 mcg/actuation HFA inhaler albuterol sulfate 90 mcg/actuation 2 puff inhalation Q6H PRN 09/28/21 aerosol inhaler shortness of breath or wheezing #8.5 grams albuterol sulfate 90 mcg/actuation 2 puff inhalation Q4-6H PRN 01/18/22 aerosol inhaler shortness of breath or wheezing #8.5 grams azithromycin 250 mg tablet See Rx Instructions PO .COMPLEX #6 03/25/22 tabs Allergies Allergy/AdvReac Type Severity Reaction Status Date / Time Penicillins Allergy Severe Unresponsiv Verified 01/18/22 11:07 e Review of Systems Constitutional Constitutional: Reports system reviewed and no additional complaints, except as documented ENT Ears, Nose, Mouth, and Throat: Reports system reviewed and no additional complaints, except as documented Cardiovascular Cardiovascular: Reports system reviewed and no additional complaints, except as documented Respiratory Respiratory: Reports system reviewed and no additional complaints, except as documented Integumentary/Breasts Skin/Breast: Reports system reviewed and no additional complaints, except as documented Neurologic Neurologic: Reports system reviewed and no additional complaints, except as documented Patient History Medical History Asthma Social History Smoking Status: Current every day smoker Smoking Status: Current every day smoker tobacco type: cigarettes and vaping alcohol intake frequency: 3 or more drinks per day Substance Use Type: marijuana Exam Initial Vital Signs Initial Vital Signs: Vital Signs Temperature 98 F 03/24/22 22:42 Pulse Rate 120 H 03/24/22 22:42 Respiratory Rate 18 03/24/22 22:42 Blood Pressure 159/90 H 03/24/22 22:42 Pulse Oximetry 94 03/24/22 22:42 Oxygen Delivery Method 03/24/22 22:42 HENMT Head: normal to inspection and normocephalic Resp Effort & Inspection: tachypneic Auscultation: rales, rhonchi and wheezes Cardio Rate: regular rate Rhythm: regular rhythm GI Inspection: normal to inspection Skin General: no rashes or lesions noted Neuro General: patient alert, patient awake and moves all extremities Extrem General: normal to inspection Psych Appearance: grossly normal Course Orders Ordered: ED Orders 03/24/22 22:50 Covid-19 + FLU A/B + RSV - PCR Stat 03/24/22 22:53 XR chest 2V Stat Discontinued Medications Albuterol (Albuterol Hfa Prepack) 1 box MISC SEEINSTR ONE Stop: 03/25/22 01:54 Last Admin: 03/25/22 02:23 Dose: 1 box Documented By: ALINE Albuterol/Ipratropium (Albuterol/Ipratropium 3 Ml Ampul) 3 ml INH NOW ONE Stop: 03/24/22 22:54 Last Admin: 03/24/22 23:02 Dose: 3 ml Documented By: ALINE Albuterol/Ipratropium (Albuterol/Ipratropium 3 Ml Ampul) 3 ml INH NOW ONE Stop: 03/25/22 00:53 Last Admin: 03/25/22 00:59 Dose: 3 ml Documented By: LANI Albuterol/Ipratropium (Albuterol/Ipratropium 3 Ml Ampul) 3 ml INH NOW ONE Stop: 03/25/22 00:53 Last Admin: 03/25/22 00:59 Dose: 3 ml Documented By: LANI Prednisone (Prednisone 20 Mg Tablet) 20 mg PO NOW ONE Stop: 03/25/22 00:53 Last Admin: 03/25/22 01:03 Dose: 20 mg Documented By: ALINE Prednisone (Prednisone 20 Mg Prepack) 1 bottle MISC SEEINSTR ONE Stop: 03/25/22 01:54 Last Admin: 03/25/22 02:23 Dose: 1 bottle Documented By: ALINE Vital Signs Vital signs: Vital Signs - 8 hr 03/24/22 22:42 03/25/22 00:59 03/25/22 02:26 Temperature 98 F 98 F Pulse Rate 120 H 112 H 88 Respiratory Rate 18 20 20 Blood Pressure 159/90 H 138/72 Pulse Oximetry 94 95 97 Oxygen Delivery Method Room Air Room Air Room Air Oxygen Flow Rate 0 Fraction of Inspired Oxygen 21 Medical Decision Making Differential Diagnosis Differential Diagnosis: Pneumonia, COPD, asthma exacerbation Condition is:: Improved Chronic Condition is having:: Moderate exacerbation Condition is at treatment goal?: Yes Medical Records Medical records reviewed: Yes I reviewed the patient's medical records. Lab Data Lab results reviewed: Yes I reviewed the patient's lab results. Labs: Lab Results 03/24/22 Range/Units 22:50 SARS-CoV-2 (PCR) Negative (Negative) Influenza A (RT-PCR) Flu a negative (NEGATIVE) Influenza B (RT-PCR) Flu b negative (NEGATIVE) RSV (PCR) Negative (Negative) Imaging Data Chest x-ray: Radiologist's Impression: [place] [address] XRay Report Signed Patient: Nain Smith MR#: [id number] : 1975 Acct:[id number] Age/Sex: 47 / M Date of Service: 03/24/22 Loc: Accession Number: [id number] ?? Procedure: XR chest 2V Ordering Provider: Braden Herrera D.O. PROCEDURE:? XR CHEST 2V ? INDICATIONS:? Shortness of breath ? TECHNIQUE:? 2 views of the chest were acquired.? ? COMPARISON:? [facility], , XR CHEST 1V, 12/24/2021, 7:06.? [facility], , XR CHEST 2V, 09/28/2021, 10:33. ? FINDINGS:? ? Surgical changes and devices:? None.? ? Lungs and pleura:? Lungs are abnormal, with severe COPD and pulmonary hyperexpansion previously documented.? No pleural effusions or pneumothorax.? ? Mediastinum:? Mediastinal contours are normal.? Heart size is normal.? ? Bones and chest wall:? No suspicious bony abnormalities.? Soft tissues appear unremarkable.? ? IMPRESSION:? Severe COPD, no pneumonia found, no pneumothorax present. ? ? Dictated by: Curtis Anderson M.D. on 03/24/2022 at 23:37 ? ? Approved by: Curtis Anderson M.D. on 03/24/2022 at 23:38? MDM Narrative Medical decision making narrative: Afebrile here but is having subjective fevers. Has a productive cough and has been coughing up yellow sputum here in the ER. Has coarse breath sounds and wheezing. This improved with nebulizers. He is out of his albuterol. I will give him an MDI for now. He does have refills but he can not fill it until the beginning of next month. Patient was also given a dose of steroids. I will send him home with a prepack of steroids. His chest x-ray was concerning for COPD. There is no definitive infiltrate however given his living situation in his productive cough and fevers treating him with antibiotics is not unreasonable. He was given a prescription for this. You will have to wait a couple days before he can fill it however he may actually improve with steroids and inhalers. He is no chest pain. He was given return precautions and follow-up instructions. He expressed understanding and agreement. Discharge Plan Departure Patient Disposition: Home Clinical Impression: Asthma, Pneumonia Instructions: DI for Asthma -- Adult Activity Restrictions/Additional Instructions: I recommend that you use the albuterol inhaler as needed. Steroids should be taken 1 tablet a day for the next 3 days. If you have remaining tablets keep them in if you start having asthma issues in the future you can take 1 tablet a day as needed. Take the antibiotics as directed. Return to the emergency department for new symptoms. Prescriptions: New azithromycin 250 mg tablet See Rx Instructions .ROUTE .COMPLEX Qty: 6 0RF Rx Instructions: For 250 mg dose pack: take 500 mg today (day 1), then 250 mg for 4 days (days 2-5) No Action fluticasone propion-salmeterol 230-21 mcg/actuation HFA aerosol inhaler 2 inh inhalation BID Qty: 12 3RF albuterol sulfate 90 mcg/actuation HFA aerosol inhaler 2 puff inhalation Q6H PRN (Reason: shortness of breath or wheezing) Qty: 8.5 6RF albuterol sulfate 90 mcg/actuation HFA aerosol inhaler 2 puff inhalation Q4-6H PRN (Reason: shortness of breath or wheezing) Qty: 8.5 0RF Stand Alone Forms: Patient Portal/API
[2022-03-25 00:59] VITALS: PULSE 112; RESP 20; O2SAT 95
[2022-03-25] MEDS: ALBUTEROL/IPRATROPIUM 3 ML AMPUL INH ×2 (00:59)
[2022-03-25] MEDS: predniSONE 20 MG TABLET PO (01:03)
[2022-03-25] MEDS: ALBUTEROL HFA PREPACK 1 BOX MISC (02:23)
[2022-03-25] MEDS: predniSONE 20 MG PREPACK 1 BOTTLE MISC (02:23)
[2022-03-25 02:26] VITALS: BP 138/72; PULSE 88; RESP 20; TEMP 36.6; O2SAT 97
== END 2022-03-25 02:20 | disposition home or self-care (01) ==
PROVIDERS: Emergency Provider Emergency Medicine
DX: J18.9 Pneumonia, unspecified organism (principal); J45.909 Unspecified asthma, uncomplicated; Z20.822 Contact with and (suspected) exposure to COVID-19
CPT/HCPCS: 0241U; 71046; 94640; 99283

== ENCOUNTER 2022-04-12 13:15 | Emergency (ER) | payer MEDICARE, MEDICAID, SELFPAY ==
[2022-04-12] VITALS (8 sets, daily range): BP systolic 125–162; BP diastolic 79–102; PULSE 107–125; RESP 16–20; TEMP 36.6; O2SAT 92–97; BMI 23.6
--- NOTE | 2022-04-12 13:23 | DI.RAD.S_ITS ---
PROCEDURE: XR CHEST 1V INDICATIONS: Shortness of breath TECHNIQUE: One view of the chest was acquired. COMPARISON: [facility], CR, XR CHEST 2V, 03/24/2022, 22:56. FINDINGS: Surgical changes and devices: None. Lungs and pleura: Lungs are clear. No pleural effusions or pneumothorax. Mediastinum: Mediastinal contours appear normal. Heart size is normal. Bones and chest wall: No suspicious bony lesions. Overlying soft tissues appear unremarkable. IMPRESSION: No acute process. Dictated by: Jenna Steinberg M.D. on 04/12/2022 at 13:36 Approved by: Jenna Steinberg M.D. on 04/12/2022 at 13:37
[2022-04-12] MEDS: ALBUTEROL 2.5 MG/3 ML NEB (ADULT) 7.5 MG INH (13:27)
--- NOTE | 2022-04-12 13:31 | ED_ITS ---
HPI - SOB/Dyspnea General Chief Complaint: Shortness of Breath/Dyspnea Stated Complaint: Needs emergency inhaler Time Seen by Provider: 04/12/22 13:25 Source: patient Mode of arrival: Ambulatory History of Present Illness HPI Narrative: Patient is a 47-year-old male history of asthma, PTSD, he was seen evaluated here 03/25/2022 diagnosed with asthma given prednisone and azithromycin. He reports that he had increased shortness of breath today. He just ran out of his albuterol this morning. He is having a harder time breathing. He is an active smoker. He denies fever chills or productive cough. No abdominal pain nausea or vomiting. He is having some chest tightness and just can not catch his breath. He denies any orthopnea or peripheral edema. Related Data Previous Rx's Medication Instructions Recorded fluticasone propionate 230 2 inh inhalation BID #12 grams 08/18/21 mcg-salmeterol 21 mcg/actuation HFA inhaler albuterol sulfate 90 mcg/actuation 2 puff inhalation Q6H PRN 09/28/21 aerosol inhaler shortness of breath or wheezing #8.5 grams albuterol sulfate 90 mcg/actuation 2 puff inhalation Q4-6H PRN 01/18/22 aerosol inhaler shortness of breath or wheezing #8.5 grams azithromycin 250 mg tablet See Rx Instructions PO .COMPLEX #6 03/25/22 tabs prednisone 10 mg tablet 10 mg PO DAILY #30 tabs 04/12/22 Allergies Allergy/AdvReac Type Severity Reaction Status Date / Time Penicillins Allergy Severe Unresponsiv Verified 04/12/22 13:25 e Review of Systems Review of Systems ROS Unobtainable: All systems reviewed & are unremarkable except as noted in HPI and below Patient History Medical History Asthma Social History Smoking Status: Current every day smoker Smoking Status: Current every day smoker tobacco type: cigarettes and vaping alcohol intake frequency: 3 or more drinks per day Substance Use Type: marijuana Exam Initial Vital Signs Initial Vital Signs: Vital Signs Temperature 97.8 F 04/12/22 13:21 Pulse Rate 125 H 04/12/22 13:21 Respiratory Rate 16 04/12/22 13:21 Blood Pressure 162/102 H 04/12/22 13:21 Pulse Oximetry 96 04/12/22 13:21 Oxygen Delivery Method 04/12/22 13:21 GENERAL: Alert 47-year-old male appears in [id number] respiratory distress HEENT: Head atraumatic,EOMI, pupils reactive, face symmetric, [moist] mucous membranes CARDIOVASCULAR: Tachycardic regular no murmurs RESPIRATORY: Decreased breath sounds bilaterally tachypneic minimal conversational dyspnea ABDOMEN: Soft, nontender. Normoactive bowel sounds all 4 quadrants. No guarding or rebound. EXTREMITIES: Normal range of motion, no clubbing or edema. Neurovascularly intact NEUROLOGICAL: Alert and oriented x4.Normal gait and speech. SKIN: Warm, dry, no laceration, no petechiae, no rashes or lesions. Course Orders Ordered: ED Orders 04/12/22 13:23 XR chest 1V Stat EKG-12 Lead Stat Measure peak expiratory flow ONCE RT Consult Eval and Treat NOW 04/12/22 13:24 Consult to [facility] [place] Sample Supervisor Stat 04/12/22 13:29 Complete Blood Count AUTO DIFF Stat Comprehensive Metabolic Panel Stat Lactate (Lactic Acid) Stat NT-proBNP (BNP-Adult 18+) Stat Prothrombin Time INR Stat Troponin I Stat 04/12/22 13:44 Covid-19 + FLU A/B + RSV - PCR Stat Discontinued Medications Albuterol (Albuterol 2.5 Mg/3 Ml Neb (Adult)) 7.5 mg INH NOW ONE Stop: 04/12/22 13:26 Last Admin: 04/12/22 13:27 Dose: 7.5 mg Documented By: ASHWINI Albuterol (Albuterol Hfa Prepack) 1 box MISC SEEINSTR ONE Stop: 04/12/22 14:30 Last Admin: 04/12/22 14:40 Dose: 1 box Documented By: AT Albuterol/Ipratropium (Albuterol/Ipratropium 3 Ml Ampul) 3 ml INH NOW ONE Stop: 04/12/22 13:48 Last Admin: 04/12/22 13:49 Dose: 3 ml Documented By: ASHWINI Sodium Chloride (Normal Saline 0.9%) 1,000 mls @ 1,000 mls/hr IV BOLUS ONE Stop: 04/12/22 14:34 Last Admin: 04/12/22 13:41 Dose: 1,000 mls/hr Documented By: AT Vital Signs Vital signs: Vital Signs - 8 hr 04/12/22 13:21 04/12/22 13:28 04/12/22 13:34 Temperature 97.8 F Pulse Rate 125 H 119 H 125 H Respiratory Rate 16 20 Blood Pressure 162/102 H Pulse Oximetry 96 97 96 Oxygen Delivery Method Room Air Room Air Room Air 04/12/22 13:49 04/12/22 13:44 04/12/22 13:44 Temperature Pulse Rate 121 H 120 H Respiratory Rate 18 Blood Pressure 128/89 Pulse Oximetry 93 93 Oxygen Delivery Method Room Air Room Air 04/12/22 14:00 04/12/22 14:00 04/12/22 14:30 Temperature Pulse Rate 122 H Respiratory Rate Blood Pressure 139/91 H 125/79 Pulse Oximetry 92 Oxygen Delivery Method Room Air 04/12/22 14:30 04/12/22 14:46 Temperature Pulse Rate 113 H 107 H Respiratory Rate 20 Blood Pressure Pulse Oximetry 92 96 Oxygen Delivery Method Room Air MDM - SOB/Dyspnea Lab Data 04/12/22 13:29 04/12/22 13:29 Labs: Lab Results 04/12/22 04/12/22 04/12/22 Range/Units 13:29 13:29 13:29 WBC 6.9 (4.5-11.0) X10^3/uL RBC 5.05 (4.5-5.9) X10^6/uL Hgb 16.9 (13.5-17.5) g/dL Hct 48.0 (41-53) % MCV 94.9 (80-100) fL MCH 33.5 (26-34) PG MCHC 35.3 (30-36) % RDW 12.7 (11.6-14.8) % Plt Count 373 (150-400) X10^3/uL Neut % (Auto) 64.7 (50-75) % Lymph % (Auto) 22.9 L (25-40) % Miner % (Auto) 8.8 (3-14) % Eos % (Auto) 2.1 (2-4) % Baso % (Auto) 1.5 (0-2) % Neut # (Auto) 4500 (2096-3206) /uL Lymph # (Auto) 1600 (1180-9973) /uL Miner # (Auto) 600 (0-900) /uL Eos # (Auto) 100 (0-450) /uL Baso # (Auto) 100 (0-100) /uL PT 11.5 (10.1-12.7) SECONDS INR 1.0 (0.9-1.3) Sodium 139 (137-145) mmol/L Potassium 4.5 (3.4-5.1) mmol/L Chloride 101 (98-107) mmol/L Carbon Dioxide 30 (22-32) mmol/L BUN 15 (9-20) mg/dL Creatinine 0.86 (0.66-1.25) mg/dL Estimated GFR > 60 (>60) mL/min BUN/Creatinine Ratio 17.4 (6-22) Glucose 127 H (70-100) mg/dL Lactate (0.7-2.1) mmol/L Calcium 9.2 (8.4-10.2) mg/dL Total Bilirubin 0.7 (0.2-1.3) mg/dL AST 32 (17-59) IU/L ALT 29 (<50) IU/L Alkaline Phosphatase 65 (38-126) U/L Troponin I < 0.012 (0.01-0.034) ng/mL NT-Pro-B Natriuret Pep < 11 (<125) pg/mL Total Protein 8.0 (6.3-8.2) g/dL Albumin 4.8 (3.5-5.0) g/dL Globulin 3.2 (1.7-4.1) g/dL Albumin/Globulin Ratio 1.5 (1.0-2.8) SARS-CoV-2 (PCR) (Negative) Influenza A (RT-PCR) (NEGATIVE) Influenza B (RT-PCR) (NEGATIVE) RSV (PCR) (Negative) 04/12/22 04/12/22 Range/Units 13:29 13:44 WBC (4.5-11.0) X10^3/uL RBC (4.5-5.9) X10^6/uL Hgb (13.5-17.5) g/dL Hct (41-53) % MCV (80-100) fL MCH (26-34) PG MCHC (30-36) % RDW (11.6-14.8) % Plt Count (150-400) X10^3/uL Neut % (Auto) (50-75) % Lymph % (Auto) (25-40) % Miner % (Auto) (3-14) % Eos % (Auto) (2-4) % Baso % (Auto) (0-2) % Neut # (Auto) (0954-2053) /uL Lymph # (Auto) (5445-6059) /uL Miner # (Auto) (0-900) /uL Eos # (Auto) (0-450) /uL Baso # (Auto) (0-100) /uL PT (10.1-12.7) SECONDS INR (0.9-1.3) Sodium (137-145) mmol/L Potassium (3.4-5.1) mmol/L Chloride (98-107) mmol/L Carbon Dioxide (22-32) mmol/L BUN (9-20) mg/dL Creatinine (0.66-1.25) mg/dL Estimated GFR (>60) mL/min BUN/Creatinine Ratio (6-22) Glucose (70-100) mg/dL Lactate 0.9 (0.7-2.1) mmol/L Calcium (8.4-10.2) mg/dL Total Bilirubin (0.2-1.3) mg/dL AST (17-59) IU/L ALT (<50) IU/L Alkaline Phosphatase (38-126) U/L Troponin I (0.01-0.034) ng/mL NT-Pro-B Natriuret Pep (<125) pg/mL Total Protein (6.3-8.2) g/dL Albumin (3.5-5.0) g/dL Globulin (1.7-4.1) g/dL Albumin/Globulin Ratio (1.0-2.8) SARS-CoV-2 (PCR) Negative (Negative) Influenza A (RT-PCR) Flu a negative (NEGATIVE) Influenza B (RT-PCR) Flu b negative (NEGATIVE) RSV (PCR) Negative (Negative) Imaging Data Chest x-ray: Radiologist's Impression: Patient: Nain Smith MR#: [id number] : 1975 Acct:[id number] Age/Sex: 47 / M Date of Service: 04/12/22 Loc: ED Accession Number: [id number] ?? Procedure: XR chest 1V Ordering Provider: Lucille Gambino D.O. PROCEDURE:? XR CHEST 1V ? INDICATIONS:? Shortness of breath ? TECHNIQUE:? One view of the chest was acquired.? ? COMPARISON:? [facility], CR, XR CHEST 2V, 03/24/2022, 22:56. ? FINDINGS:? ? Surgical changes and devices:? None.? ? Lungs and pleura:? Lungs are clear.? No pleural effusions or pneumothorax.? ? Mediastinum:? Mediastinal contours appear normal.? Heart size is normal.? ? Bones and chest wall:? No suspicious bony lesions.? Overlying soft tissues appear unremarkable.? ? IMPRESSION:? No acute process. ? ? Dictated by: Jenna Steinberg M.D. on 04/12/2022 at 13:36 ? ? ECG Data Interpretation: Sinus tachycardia rate 122 WI interval 154 QRS [address] changes left axis deviation no T-wave inversions similar to previous EKG MDM Narrative Medical decision making narrative: Patient is a 47-year-old male history of asthma comes in when he runs out of his medication or is having worsening difficulty breathing. He is noted to be tachycardic and tachypneic. He is given albuterol here in the ED which seems to help a lot. He is also given Solu-Medrol. Blood work is reassuring without leukocytosis electrolyte abnormality elevation and troponin or kidney injury. BNP is also negative There is no evidence of sepsis. Chest x-ray does not show any pneumonia. Patient's symptoms improved with albuterol and Solu-Medrol. He is needing an albuterol inhaler however he can not fill his prescription for a couple more days or weeks. He is given a prepack here. He is homeless but has resources and does pretty well. He denied social work evaluation. Other differential diagnosis is considered congestive heart failure pneumonia pulmonary embolism COPD exacerbation pneumothorax heat coronary syndrome Discharge Plan Departure Patient Disposition: Home Clinical Impression: Asthma exacerbation Instructions: DI for Asthma -- Adult Activity Restrictions/Additional Instructions: *You have been diagnosed with asthma exacerbation *What to do: *Continue to take medications as directed Albuterol inhaler 1-2 puffs every 4 hours if needed for shortness of breath Prednisone 40 mg once a day for 3 days, 30 mg once a day for 3 days, 20 mg once a day for 3 days, 10 mg once a day for 3 days *Follow up with your primary care provider in 2-3 days or call [phone] *Return to ER if you should have increasing shortness of breath chest pain or any new, worsening or concerning symptoms Prescriptions: New prednisone 10 mg tablet 10 mg PO DAILY Qty: 30 0RF Rx Instructions: day 1-3: 40 mg once a day day 4-6: 30 mg once a day day 7-9: 20 mg once a day day 10-12: 10 mg once a day No Action fluticasone propion-salmeterol 230-21 mcg/actuation HFA aerosol inhaler 2 inh inhalation BID Qty: 12 3RF azithromycin 250 mg tablet See Rx Instructions .ROUTE .COMPLEX Qty: 6 0RF Rx Instructions: For 250 mg dose pack: take 500 mg today (day 1), then 250 mg for 4 days (days 2-5) albuterol sulfate 90 mcg/actuation HFA aerosol inhaler 2 puff inhalation Q6H PRN (Reason: shortness of breath or wheezing) Qty: 8.5 6RF albuterol sulfate 90 mcg/actuation HFA aerosol inhaler 2 puff inhalation Q4-6H PRN (Reason: shortness of breath or wheezing) Qty: 8.5 0RF Stand Alone Forms: Patient Portal/API
[2022-04-12 13:39] LABS: Add Manual Diff / Slide Review NO; Basophils Absolute Auto 100 /uL (0-100); Basophils Percent Auto 1.5 % (0-2); Eosinophils Absolute Auto 100 /uL (0-450); Eosinophils Percent Auto 2.1 % (2-4); Hemoglobin 16.9 g/dL (13.5-17.5); Lymphocytes Absolute Auto 1600 /uL (1100-4500); Lymphocytes Percent Auto 22.9 % (25-40); Mean Corpuscular HGB Conc 35.3 % (30-36); Mean Corpuscular Hemoglobin 33.5 PG (26-34); Mean Corpuscular Volume 94.9 fL (80-100); Monocytes Absolute Auto 600 /uL (0-900); Monocytes Percent Auto 8.8 % (3-14); Neutrophils Absolute Auto 4500 /uL (1500-7000); Neutrophils Percent Auto 64.7 % (50-75); Platelet Count 373 X10^3/uL (150-400); Red Blood Cell Count 5.05 X10^6/uL (4.5-5.9); Red Cell Distribution Width 12.7 % (11.6-14.8); White Blood Cell Count 6.9 X10^3/uL (4.5-11.0)
[2022-04-12] MEDS: SODIUM CHLORIDE 0.9% 1,000 ML 1000 ML IV (13:41)
[2022-04-12 13:45] LABS: Prothrombin Time 11.5 SECONDS (10.1-12.7)
[2022-04-12 13:48] LABS: Alanine Aminotransferase 29 IU/L (<50); Albumin 4.8 g/dL (3.5-5.0); Albumin Globulin Ratio 1.5 (1.0-2.8); Alkaline Phosphatase 65 U/L (38-126); Aspartate Aminotransferase 32 IU/L (17-59); BUN Creatinine Ratio 17.4 (6-22); Bilirubin Total 0.7 mg/dL (0.2-1.3); Blood Urea Nitrogen 15 mg/dL (9-20); Calcium 9.2 mg/dL (8.4-10.2); Carbon Dioxide 30 mmol/L (22-32); Chloride 101 mmol/L (98-107); Estimated Glomerular Filt Rate > 60 mL/min (>60); Globulin 3.2 g/dL (1.7-4.1); Glucose 127 mg/dL (70-100); HEMOLYSIS 33 (0-50); Potassium 4.5 mmol/L (3.4-5.1); Sodium 139 mmol/L (137-145)
[2022-04-12 13:49] LABS: Lactate (Lactic Acid) 0.9 mmol/L (0.7-2.1)
[2022-04-12] MEDS: ALBUTEROL/IPRATROPIUM 3 ML AMPUL INH (13:49)
[2022-04-12 14:00] LABS: NT-proBNP (BNP-Adult 18+) < 11 pg/mL (<125); Troponin I < 0.012 ng/mL (0.01-0.034)
[2022-04-12 14:27] LABS: Influenza A - CEPHEID Flu A NEGATIVE (NEGATIVE); Influenza B - CEPHEID Flu B NEGATIVE (NEGATIVE); Respiratory Syncytial Virus Negative (Negative)
[2022-04-12 14:36] LABS: COVID-19 CEPHEID 4-PLEX PCR Negative (Negative)
[2022-04-12] MEDS: ALBUTEROL HFA PREPACK 1 BOX MISC (14:40)
== END 2022-04-12 14:46 | disposition home or self-care (01) ==
PROVIDERS: Emergency Provider Emergency Medicine
DX: J45.901 Unspecified asthma with (acute) exacerbation (principal); R06.02 Shortness of breath; Z86.16 Personal history of COVID-19; Z20.822 Contact with and (suspected) exposure to COVID-19
CPT/HCPCS: 0241U; 36415; 71045; 80053; 83605; 83880; 84484; 85025; 85610; 93005; 93010; 94150; 94640; 99284; J7613

== ENCOUNTER 2022-04-19 09:29 | Emergency (ER) | payer MEDICARE, MEDICAID, SELFPAY ==
--- NOTE | 2022-04-19 09:32 | ED.SOB ---
HPI - SOB/Dyspnea General Chief Complaint: Shortness of Breath/Dyspnea Stated Complaint: difficulty breathing Time Seen by Provider: 04/19/22 09:32 History of Present Illness HPI Narrative: 47-year-old male smoker with history of asthma presents with shortness of breath, racing heart and feeling shaky. He states that he had recently been seen here for an asthma exacerbation and put on steroids and a Z-Ozzie and had been feeling better until this morning when he was in his tent and heard something outside of the temp. He heard some abnormal sounds and then feels like he taste and something bitter in his mouth and is concerned that he may have been exposed to cocaine or some other substance but started feeling short of breath, shaky and generally poor after this exposure. He is had no fever or chills. He denies chest pain. Denies abdominal pain. Related Data Previous Rx's Medication Instructions Recorded fluticasone propionate 230 2 inh inhalation BID #12 grams 08/18/21 mcg-salmeterol 21 mcg/actuation HFA inhaler albuterol sulfate 90 mcg/actuation 2 puff inhalation Q6H PRN 09/28/21 aerosol inhaler shortness of breath or wheezing #8.5 grams albuterol sulfate 90 mcg/actuation 2 puff inhalation Q4-6H PRN 01/18/22 aerosol inhaler shortness of breath or wheezing #8.5 grams azithromycin 250 mg tablet See Rx Instructions PO .COMPLEX #6 03/25/22 tabs prednisone 10 mg tablet 10 mg PO DAILY #30 tabs 04/12/22 Allergies Allergy/AdvReac Type Severity Reaction Status Date / Time Penicillins Allergy Severe Unresponsiv Verified 04/19/22 09:38 e Review of Systems Review of Systems Narrative: GENERAL: See HPI HEENT: Denies sinus pain, ear pain, sore throat, difficulty swallowing, dizziness. RESPIRATORY: See HPI CARDIOVASCULAR: See HPI GASTROINTESTINAL: Denies nausea, vomiting, abdominal pain, diarrhea, constipation, melena. : Denies dysuria, frequency, incontinence, hematuria, urinary retention. MUSCULOSKELETAL: denies weakness, joint pain, or bony pain SKIN: Denies rash, skin lesions, or other NEUROLOGIC: Denies weakness, headache, numbness, change in speech, confusion, seizures, incoordination. PSYCHIATRIC: No concerning psychosocial issues. 12 point review of systems is negative except for those stated above Patient History Medical History Asthma Social History Smoking Status: Current every day smoker Smoking Status: Current every day smoker tobacco type: cigarettes and vaping alcohol intake frequency: 3 or more drinks per day Substance Use Type: marijuana Exam Narrative Exam Narrative: GENERAL: [47] year old patient appears stated age. Well-developed patient, in mild distress. Obviously concern, anxious, pacing a bit HEAD: Atraumatic. Normocephalic. EYES: Pupils equal round and reactive. Extraocular motions intact. No scleral icterus. No injection or drainage. ENT: Nose without bleeding, purulent drainage. Throat without erythema, tonsillar hypertrophy or exudate. Airway patent. NECK: Trachea midline. Non tender CARDIOVASCULAR: Tachycardic but regular rhythm without murmurs, gallops, or rubs. RESPIRATORY: Clear to auscultation. Breath sounds equal bilaterally. No wheezes, rales, or rhonchi. No increased work of breathing, tachypnea, hypoxemia or use of accessory muscles GASTROINTESTINAL: Abdomen soft, non-tender, nondistended. EXTREMITIES: No edema or joint tenderness. BACK: Nontender without deformity or crepitance. No flank tenderness. NEURO: AOx3. SKIN: No rash or erythema of visible areas Initial Vital Signs Initial Vital Signs: Vital Signs Temperature 97.5 F L 04/19/22 09:33 Pulse Rate 121 H 04/19/22 09:33 Respiratory Rate 18 04/19/22 09:33 Blood Pressure 162/88 H 04/19/22 09:33 Pulse Oximetry 96 04/19/22 09:33 Oxygen Delivery Method 04/19/22 09:33 Course Orders Ordered: Discontinued Medications Albuterol (Albuterol 2.5 Mg/3 Ml Neb (Adult)) 5 mg INH NOW ONE Stop: 04/19/22 10:12 Last Admin: 04/19/22 10:17 Dose: 5 mg Documented By: JUAN ALBERTO Sodium Chloride (Normal Saline 0.9%) 1,000 mls @ 1,000 mls/hr IV BOLUS ONE Stop: 04/19/22 10:37 Last Infusion: 04/19/22 10:37 Dose: 0 mls/hr Documented By: Admin: 04/19/22 09:46 Dose: 1,000 mls/hr Documented By: HEATHER(2) Lorazepam (Lorazepam 2 Mg/Ml Inj) 1 mg IV NOW ONE Stop: 04/19/22 09:39 Last Admin: 04/19/22 09:46 Dose: Not Given Documented By: HEATHER(2) Vital Signs Vital signs: Vital Signs - 8 hr 04/19/22 09:33 04/19/22 09:36 04/19/22 10:18 Temperature 97.5 F L Pulse Rate 121 H 122 H 102 H Respiratory Rate 18 24 Blood Pressure 162/88 H Pulse Oximetry 96 97 96 Oxygen Delivery Method Room Air Room Air MDM - SOB/Dyspnea Lab Data 04/19/22 09:41 04/19/22 09:41 Labs: Lab Results 04/19/22 04/19/22 04/19/22 Range/Units 09:41 09:41 09:41 WBC 7.0 (4.5-11.0) X10^3/uL RBC 4.70 (4.5-5.9) X10^6/uL Hgb 15.4 (13.5-17.5) g/dL Hct 45.5 (41-53) % MCV 96.9 (80-100) fL MCH 32.8 (26-34) PG MCHC 33.8 (30-36) % RDW 12.7 (11.6-14.8) % Plt Count 293 (150-400) X10^3/uL Neut % (Auto) 89.9 H (50-75) % Lymph % (Auto) 7.3 L (25-40) % [place] % (Auto) 2.3 L (3-14) % Eos % (Auto) 0.1 L (2-4) % Baso % (Auto) 0.4 (0-2) % Neut # (Auto) 6300 (3490-6205) /uL Lymph # (Auto) 500 L (3176-7945) /uL [place] # (Auto) 200 (0-900) /uL Eos # (Auto) 0 (0-450) /uL Baso # (Auto) 0 (0-100) /uL D-Dimer < 215 (<500) ng/ml Sodium 139 (137-145) mmol/L Potassium 3.9 (3.4-5.1) mmol/L Chloride 100 (98-107) mmol/L Carbon Dioxide 28 (22-32) mmol/L BUN 15 (9-20) mg/dL Creatinine 0.76 (0.66-1.25) mg/dL Estimated GFR > 60 (>60) mL/min BUN/Creatinine Ratio 19.7 (6-22) Glucose 106 H (70-100) mg/dL Calcium 8.8 (8.4-10.2) mg/dL Magnesium 1.8 (1.6-2.3) mg/dL Total Bilirubin 0.6 (0.2-1.3) mg/dL AST 23 (17-59) IU/L ALT 25 (<50) IU/L Alkaline Phosphatase 51 (38-126) U/L Total Creatine Kinase 50 L (55-170) U/L CK-MB (CK-2) TNP CK-MB (CK-2) Rel Index TNP Troponin I < 0.012 (0.01-0.034) ng/mL NT-Pro-B Natriuret Pep 65 (<125) pg/mL Total Protein 7.4 (6.3-8.2) g/dL Albumin 4.6 (3.5-5.0) g/dL Globulin 2.8 (1.7-4.1) g/dL Albumin/Globulin Ratio 1.6 (1.0-2.8) U Opiates 300ng/mL cut (Negative) Ur Oxycodone Screen (Negative) Urine Methadone Screen (Negative) Ur Barbiturates Screen (Negative) U Tricyclic Antidepress (Negative) Ur Phencyclidine Scrn (Negative) Ur Amphetamines Screen (Negative) U Methamphetamines Scrn (Negative) Ur MDMA Scrn (Ecstasy) (Negative) U Benzodiazepines Scrn (Negative) Urine Cocaine Screen (Negative) U Marijuana (THC) Screen (Negative) 04/19/22 Range/Units 09:45 WBC (4.5-11.0) X10^3/uL RBC (4.5-5.9) X10^6/uL Hgb (13.5-17.5) g/dL Hct (41-53) % MCV (80-100) fL MCH (26-34) PG MCHC (30-36) % RDW (11.6-14.8) % Plt Count (150-400) X10^3/uL Neut % (Auto) (50-75) % Lymph % (Auto) (25-40) % [place] % (Auto) (3-14) % Eos % (Auto) (2-4) % Baso % (Auto) (0-2) % Neut # (Auto) (5292-1884) /uL Lymph # (Auto) (7617-9145) /uL [place] # (Auto) (0-900) /uL Eos # (Auto) (0-450) /uL Baso # (Auto) (0-100) /uL D-Dimer (<500) ng/ml Sodium (137-145) mmol/L Potassium (3.4-5.1) mmol/L Chloride (98-107) mmol/L Carbon Dioxide (22-32) mmol/L BUN (9-20) mg/dL Creatinine (0.66-1.25) mg/dL Estimated GFR (>60) mL/min BUN/Creatinine Ratio (6-22) Glucose (70-100) mg/dL Calcium (8.4-10.2) mg/dL Magnesium (1.6-2.3) mg/dL Total Bilirubin (0.2-1.3) mg/dL AST (17-59) IU/L ALT (<50) IU/L Alkaline Phosphatase (38-126) U/L Total Creatine Kinase (55-170) U/L CK-MB (CK-2) CK-MB (CK-2) Rel Index Troponin I (0.01-0.034) ng/mL NT-Pro-B Natriuret Pep (<125) pg/mL Total Protein (6.3-8.2) g/dL Albumin (3.5-5.0) g/dL Globulin (1.7-4.1) g/dL Albumin/Globulin Ratio (1.0-2.8) U Opiates 300ng/mL cut Negative (Negative) Ur Oxycodone Screen Negative (Negative) Urine Methadone Screen Negative (Negative) Ur Barbiturates Screen Negative (Negative) U Tricyclic Antidepress Negative (Negative) Ur Phencyclidine Scrn Negative (Negative) Ur Amphetamines Screen Negative (Negative) U Methamphetamines Scrn Negative (Negative) Ur MDMA Scrn (Ecstasy) Negative (Negative) U Benzodiazepines Scrn Negative (Negative) Urine Cocaine Screen Negative (Negative) U Marijuana (THC) Screen Positive H (Negative) MDM Narrative Medical decision making narrative: CC: 47-year-old male with history is asthma presents with possible chemical exposure and subsequent shortness of breath Complicating co-morbidities: Asthma Data collected from: Patient Medical records reviewed: Prior notes reviewed in our EMR Differential considered, but not limited to: Asthma exacerbation, pneumonia, pulmonary embolism toxic exposure versus other Exam documented above, pertinent findings include: Initially increased work of breathing, diminished breath sounds and expiratory wheeze Lab Test results independently reviewed as above. Pertinent findings: No significant abnormalities that would require specific intervention, D-dimer below cutoff Independently reviewed EKG as above Imaging studies independently reviewed: No evidence of pneumonia Treatments: Ativan, bronchodilators Re-evaluations: Significant improvement over the course of the visit, work of breathing tremendously improved, no longer in respiratory distress, no wheeze, heart rate improved Discussion: Patient with concern of possible chemical exposure and subsequent difficulty in breathing. Labs are unremarkable, imaging without specific abnormalities, significant improvement with above-stated therapies. Disposition: see below, along with detailed discharge instructions that have been reviewed with patient as well as indications for ED re-evaluation and additional outpatient follow up Discharge Plan Departure Patient Disposition: Home Clinical Impression: Asthma with exacerbation Instructions: DI for Asthma -- Adult Activity Restrictions/Additional Instructions: *You have been diagnosed with [asthma exacerbation] *What to do: *Please continue to take your regular medications as directed. *Please follow up with your primary care provider in 2-3 days, call for an appointment. Let them know you were seen in the Emergency Department and that we ask that you be seen in follow up. We will electronically transmit a record of today's note if your PCP is in our system *If you do not have a primary care provider please contact the [facility] Resource line at [phone]. They will ask some questions about your medical history and help get you set up with a doctor in the community. *Return to Emergency Department if you should have any new, worsening or concerning symptoms, such as [fever greater than 101 F, shaking chills, worsening pain, persistent vomiting or other bothersome symptoms] Prescriptions: No Action fluticasone propion-salmeterol 230-21 mcg/actuation HFA aerosol inhaler 2 inh inhalation BID Qty: 12 3RF azithromycin 250 mg tablet See Rx Instructions .ROUTE .COMPLEX Qty: 6 0RF Rx Instructions: For 250 mg dose pack: take 500 mg today (day 1), then 250 mg for 4 days (days 2-5) albuterol sulfate 90 mcg/actuation HFA aerosol inhaler 2 puff inhalation Q6H PRN (Reason: shortness of breath or wheezing) Qty: 8.5 6RF albuterol sulfate 90 mcg/actuation HFA aerosol inhaler 2 puff inhalation Q4-6H PRN (Reason: shortness of breath or wheezing) Qty: 8.5 0RF prednisone 10 mg tablet 10 mg PO DAILY Qty: 30 0RF Rx Instructions: day 1-3: 40 mg once a day day 4-6: 30 mg once a day day 7-9: 20 mg once a day day 10-12: 10 mg once a day Stand Alone Forms: Patient Portal/API
[2022-04-19 09:33] VITALS: BP 162/88; PULSE 121; RESP 18; TEMP 36.4; O2SAT 96; BMI 24.3
[2022-04-19 09:36] VITALS: PULSE 122; O2SAT 97
[2022-04-19] MEDS: SODIUM CHLORIDE 0.9% 1,000 ML 1000 ML IV (09:46)
[2022-04-19 09:48] LABS: Add Manual Diff / Slide Review NO; Basophils Absolute Auto 0 /uL (0-100); Basophils Percent Auto 0.4 % (0-2); Eosinophils Absolute Auto 0 /uL (0-450); Eosinophils Percent Auto 0.1 % (2-4); Hematocrit 45.5 % (41-53); Hemoglobin 15.4 g/dL (13.5-17.5); Lymphocytes Absolute Auto 500 /uL (1100-4500); Lymphocytes Percent Auto 7.3 % (25-40); Mean Corpuscular HGB Conc 33.8 % (30-36); Mean Corpuscular Hemoglobin 32.8 PG (26-34); Mean Corpuscular Volume 96.9 fL (80-100); Monocytes Absolute Auto 200 /uL (0-900); Monocytes Percent Auto 2.3 % (3-14); Neutrophils Absolute Auto 6300 /uL (1500-7000); Neutrophils Percent Auto 89.9 % (50-75); Platelet Count 293 X10^3/uL (150-400); Red Cell Distribution Width 12.7 % (11.6-14.8)
[2022-04-19 10:02] LABS: Alanine Aminotransferase 25 IU/L (<50); Albumin 4.6 g/dL (3.5-5.0); Albumin Globulin Ratio 1.6 (1.0-2.8); Alkaline Phosphatase 51 U/L (38-126); Aspartate Aminotransferase 23 IU/L (17-59); BUN Creatinine Ratio 19.7 (6-22); Bilirubin Total 0.6 mg/dL (0.2-1.3); Blood Urea Nitrogen 15 mg/dL (9-20); Calcium 8.8 mg/dL (8.4-10.2); Carbon Dioxide 28 mmol/L (22-32); Chloride 100 mmol/L (98-107); Creatine Kinase 50 U/L (55-170); D Dimer < 215 ng/ml (<500); Estimated Glomerular Filt Rate > 60 mL/min (>60); Globulin 2.8 g/dL (1.7-4.1); Glucose 106 mg/dL (70-100); HEMOLYSIS < 15 (0-50); Magnesium 1.8 mg/dL (1.6-2.3); Potassium 3.9 mmol/L (3.4-5.1); Sodium 139 mmol/L (137-145); Total Protein 7.4 g/dL (6.3-8.2)
[2022-04-19 10:14] LABS: NT-proBNP (BNP-Adult 18+) 65 pg/mL (<125); Troponin I < 0.012 ng/mL (0.01-0.034)
[2022-04-19] MEDS: ALBUTEROL 2.5 MG/3 ML NEB (ADULT) 5 MG INH (10:17)
[2022-04-19 10:18] VITALS: PULSE 102; RESP 24; O2SAT 96
--- NOTE | 2022-04-19 10:25 | RT ---
pt wanda neb tx well, no distress noted and pt states better air movement
[2022-04-19 11:04] LABS: UR Morphine/Opiate cutoff 300 Negative (Negative); Ur Creatinine Normal (Normal); Ur Specific Gravity Normal (Normal); Urine Amphetamines Negative (Negative); Urine Barbiturates Negative (Negative); Urine Cocaine Negative (Negative); Urine MDMA Negative (Negative); Urine Methamphetamines Negative (Negative); Urine Phencyclidine Negative (Negative); Urine Tetrahydrocannabinol Positive (Negative); Urine pH Normal (Normal)
[2022-04-19 11:05] LABS: Urine Benzodiazepines Negative (Negative); Urine Methadone Negative (Negative); Urine Oxycodone Negative (Negative); Urine Tricyclic Antidepressant Negative (Negative)
== END 2022-04-19 11:37 | disposition home or self-care (01) ==
PROVIDERS: Emergency Provider Emergency Medicine
DX: J45.901 Unspecified asthma with (acute) exacerbation (principal); R07.9 Chest pain, unspecified
CPT/HCPCS: 36415; 80053; 80305; 82550; 83735; 83880; 84484; 85025; 85379; 93005; 94640; 99284; J7613

== ENCOUNTER 2022-07-09 00:56 | Emergency (ER) | payer MEDICARE, MEDICAID, SELFPAY ==
[2022-07-09 01:07] VITALS: BP 156/96; PULSE 103; RESP 25; TEMP 36.3; O2SAT 95; BMI 23.6
[2022-07-09] MEDS: predniSONE 20 MG TABLET 40 MG PO (01:09)
[2022-07-09] MEDS: ALBUTEROL/IPRATROPIUM 3 ML AMPUL INH (01:10)
--- NOTE | 2022-07-09 01:54 | ED_ITS ---
HPI - SOB/Dyspnea General Chief Complaint: Shortness of Breath/Dyspnea Stated Complaint: SOB Time Seen by Provider: 07/09/22 01:13 Source: patient Mode of arrival: Ambulatory Limitations: no limitations History of Present Illness HPI Narrative: Patient is a 47-year-old male history of asthma presents today with shortness of breath. He reports that he was short of breath when she days ago had difficulty with ambulation had a stop frequently. Yesterday he was doing well, tonight he ran out of his albuterol inhaler. Having increasing shortness of breath. Able to speak but in obvious respiratory distress. He denies any fever chills or cough. He has an Advair inhaler that he has not filled. Related Data Previous Rx's Medication Instructions Recorded fluticasone propionate 230 2 inh inhalation BID #12 grams 08/18/21 mcg-salmeterol 21 mcg/actuation HFA inhaler albuterol sulfate 90 mcg/actuation 2 puff inhalation Q6H PRN 09/28/21 aerosol inhaler shortness of breath or wheezing #8.5 grams albuterol sulfate 90 mcg/actuation 2 puff inhalation Q4-6H PRN 01/18/22 aerosol inhaler shortness of breath or wheezing #8.5 grams azithromycin 250 mg tablet See Rx Instructions PO .COMPLEX #6 03/25/22 tabs prednisone 10 mg tablet 10 mg PO DAILY #30 tabs 04/12/22 albuterol sulfate 90 mcg/actuation 2 puff inhalation Q4-6H PRN 07/09/22 aerosol inhaler shortness of breath or wheezing #8.5 grams fluticasone propionate 230 2 puff inhalation Q12H #12 grams 07/09/22 mcg-salmeterol 21 mcg/actuation HFA inhaler (Advair HFA) Allergies Allergy/AdvReac Type Severity Reaction Status Date / Time Penicillins Allergy Severe Unresponsiv Verified 07/09/22 01:06 e Review of Systems Review of Systems ROS Unobtainable: All systems reviewed & are unremarkable except as noted in HPI and below Patient History Medical History Asthma Social History Smoking Status: Current every day smoker Smoking Status: Current every day smoker tobacco type: cigarettes and vaping alcohol intake frequency: a few times a week Substance Use Type: marijuana Exam Initial Vital Signs Initial Vital Signs: Vital Signs Temperature 97.4 F L 07/09/22 01:07 Pulse Rate 103 H 07/09/22 01:07 Respiratory Rate 25 H 07/09/22 01:07 Blood Pressure 156/96 H 07/09/22 01:07 Pulse Oximetry 95 07/09/22 01:07 Oxygen Delivery Method Room Air 07/09/22 01:07 GENERAL: Alert 47-year-old male appears in [id number] respiratory distress HEENT: Head atraumatic,EOMI, pupils reactive, face symmetric, moist mucous membranes CARDIOVASCULAR: Regular rate and rhythm without murmurs, rubs or gallops. RESPIRATORY: Decreased breath sounds bilaterally ABDOMEN: Soft, nontender. Normoactive bowel sounds all 4 quadrants. No guarding or rebound EXTREMITIES: Normal range of motion, no clubbing or edema. Neurovascularly intact NEUROLOGICAL: Alert and oriented x4. SKIN: Warm, dry, no laceration, no petechiae, no rashes or lesions. Course Orders Ordered: Discontinued Medications Albuterol (Al[facility]erol Hfa Prepack) [facility] Stop: 07/09/22 01:36 Last Admin: 07/09/22 02:14 Dose: 1 box Documented By: BRUCE Albuterol/Ipratropium (Albuterol/Ipratropium 3 Ml Ampul) 3 ml INH NOW ONE Stop: 07/09/22 01:05 Last Admin: 07/09/22 01:10 Dose: 3 ml Documented By: Prednisone (Prednisone 20 Mg Tablet) 40 mg PO NOW ONE Stop: 07/09/22 01:06 Last Admin: 07/09/22 01:09 Dose: 40 mg Documented By: SB Vital Signs Vital signs: Vital Signs - 8 hr 07/09/22 01:07 07/09/22 02:15 Temperature 97.4 F L Pulse Rate 103 H 75 Respiratory Rate 25 H 18 Blood Pressure 156/96 H 135/86 Pulse Oximetry 95 92 Oxygen Delivery Method Room Air Room Air MDM - SOB/Dyspnea MDM Narrative Medical decision making narrative: Patient is here frequently for asthma exacerbations although the last time he was here was in March. He is doing much better after DuoNeb and albuterol. He is given oral prednisone. He is afebrile with out infectious symptoms, I do not see need for x-ray or viral panel. Symptoms are consistent with a asthma exacerbation. Patient is not hypoxic no longer in respiratory distress. He is here frequently needing some albuterol. Discharge Plan Departure Patient Disposition: Home Clinical Impression: Asthma with exacerbation Instructions: Asthma -- Adult Activity Restrictions/Additional Instructions: *You have been diagnosed with asthma exacerbation *What to do: Please failure Advair inhaler ice and use it twice a day. I think it will help you a lot. Especially through the summer. *Continue to take medications as directed Prednisone 40 mg once a day for 5 days Albuterol inhaler 1-2 puffs if needed for shortness of breath *Follow up with your primary care provider in 2-3 days or call [phone] *Return to ER if you should have increasing shortness of breath chest tightness or any new, worsening or concerning symptoms Prescriptions: New fluticasone propion-salmeterol [Advair HFA] 230-21 mcg/actuation HFA aerosol inhaler 2 puff inhalation Q12H Qty: 12 0RF albuterol sulfate 90 mcg/actuation HFA aerosol inhaler 2 puff inhalation Q4-6H PRN (Reason: shortness of breath or wheezing) Qty: 8.5 0RF No Action fluticasone propion-salmeterol 230-21 mcg/actuation HFA aerosol inhaler 2 inh inhalation BID Qty: 12 3RF azithromycin 250 mg tablet See Rx Instructions .ROUTE .COMPLEX Qty: 6 0RF Rx Instructions: For 250 mg dose pack: take 500 mg today (day 1), then 250 mg for 4 days (days 2-5) albuterol sulfate 90 mcg/actuation HFA aerosol inhaler 2 puff inhalation Q6H PRN (Reason: shortness of breath or wheezing) Qty: 8.5 6RF albuterol sulfate 90 mcg/actuation HFA aerosol inhaler 2 puff inhalation Q4-6H PRN (Reason: shortness of breath or wheezing) Qty: 8.5 0RF prednisone 10 mg tablet 10 mg PO DAILY Qty: 30 0RF Rx Instructions: day 1-3: 40 mg once a day day 4-6: 30 mg once a day day 7-9: 20 mg once a day day 10-12: 10 mg once a day Stand Alone Forms: Patient Portal/API
[2022-07-09] MEDS: ALBUTEROL HFA PREPACK 1 BOX MISC (02:14)
[2022-07-09 02:15] VITALS: BP 135/86; PULSE 75; RESP 18; O2SAT 92
== END 2022-07-09 02:15 | disposition home or self-care (01) ==
PROVIDERS: Emergency Provider Emergency Medicine
DX: J45.901 Unspecified asthma with (acute) exacerbation (principal)
CPT/HCPCS: 94640; 99283

== ENCOUNTER 2022-11-02 08:50 | Emergency (ER) | payer MEDICARE, MEDICAID, SELFPAY ==
[2022-11-02 08:57] VITALS: BP 145/96; PULSE 120; RESP 20; TEMP 36.7; O2SAT 97; BMI 24.3
[2022-11-02 09:00] VITALS: BP 150/94; PULSE 104; RESP 17; O2SAT 95
--- NOTE | 2022-11-02 09:02 | DI.RAD.S_ITS ---
PROCEDURE: XR CHEST 1V INDICATIONS: Shortness of breath TECHNIQUE: One view of the chest was acquired. COMPARISON: [facility], CR, XR CHEST 2V, 03/24/2022, 22:56. [facility], CR, XR CHEST 1V, 12/24/2021, 7:06. [facility], CR, XR CHEST 1V, 04/12/2022, 13:23. FINDINGS: Surgical changes and devices: None. Lungs and pleura: Lungs are clear. No pleural effusions or pneumothorax. Mediastinum: Mediastinal contours appear normal. Heart size is normal. Bones and chest wall: No suspicious bony lesions. Overlying soft tissues appear unremarkable. IMPRESSION: No acute cardiopulmonary abnormality. Dictated by: Randall Wheatley M.D. on 11/02/2022 at 10:08 Approved by: Randall Wheatley M.D. on 11/02/2022 at 10:09
[2022-11-02 09:15] LABS: Add Manual Diff / Slide Review NO; Basophils Absolute Auto 100 /uL (0-100); Basophils Percent Auto 0.9 % (0-2); Eosinophils Absolute Auto 100 /uL (0-450); Eosinophils Percent Auto 2.1 % (2-4); Hematocrit 43.9 % (41-53); Hemoglobin 15.4 g/dL (13.5-17.5); Lymphocytes Absolute Auto 1500 /uL (1100-4500); Lymphocytes Percent Auto 23.5 % (25-40); Mean Corpuscular Hemoglobin 33.3 PG (26-34); Mean Corpuscular Volume 95.1 fL (80-100); Monocytes Absolute Auto 600 /uL (0-900); Monocytes Percent Auto 10.1 % (3-14); Neutrophils Absolute Auto 3900 /uL (1500-7000); Neutrophils Percent Auto 63.4 % (50-75); Platelet Count 273 X10^3/uL (150-400); Red Blood Cell Count 4.62 X10^6/uL (4.5-5.9); Red Cell Distribution Width 12.7 % (11.6-14.8); White Blood Cell Count 6.2 X10^3/uL (4.5-11.0)
[2022-11-02 09:21] VITALS: PULSE 97; RESP 14; O2SAT 94
[2022-11-02] MEDS: ALBUTEROL 2.5 MG/3 ML NEB (ADULT) INH (09:21)
[2022-11-02 09:24] LABS: INR 1.1 (0.9-1.3); Prothrombin Time 12.5 SECONDS (10.1-12.7)
--- NOTE | 2022-11-02 09:27 | ED_ITS ---
HPI - SOB/Dyspnea General Chief Complaint: Shortness of Breath/Dyspnea Stated Complaint: SOB Time Seen by Provider: 11/02/22 09:25 Source: patient Mode of arrival: Family Vehicle Limitations: no limitations History of Present Illness HPI Narrative: Patient brought in by ambulance for asthma exacerbation. Patient receiving a DuoNeb by EMS. Patient had verbal confrontation with someone on the street today and triggered his asthma. He states he is had stress-induced asthma in the past. He has an inhaler that is outdated and does not work very well. Patient does have wheezing and diminished lung sounds. Recent upper respiratory infection. Nurse initiated order sent started and was reviewed. Related Data Previous Rx's Medication Instructions Recorded fluticasone propionate 230 2 inh inhalation BID #12 grams 08/18/21 mcg-salmeterol 21 mcg/actuation HFA inhaler albuterol sulfate 90 mcg/actuation 2 puff inhalation Q6H PRN 09/28/21 aerosol inhaler shortness of breath or wheezing #8.5 grams albuterol sulfate 90 mcg/actuation 2 puff inhalation Q4-6H PRN 01/18/22 aerosol inhaler shortness of breath or wheezing #8.5 grams azithromycin 250 mg tablet See Rx Instructions PO .COMPLEX #6 03/25/22 tabs prednisone 10 mg tablet 10 mg PO DAILY #30 tabs 04/12/22 albuterol sulfate 90 mcg/actuation 2 puff inhalation Q4-6H PRN 07/09/22 aerosol inhaler shortness of breath or wheezing #8.5 grams fluticasone propionate 230 2 puff inhalation Q12H #12 grams 07/09/22 mcg-salmeterol 21 mcg/actuation HFA inhaler (Advair HFA) albuterol sulfate 90 mcg/actuation 2 inhalation inhalation QID PRN 11/02/22 aerosol inhaler (Ventolin HFA) shortness of breath or wheezing #6.7 grams Allergies Allergy/AdvReac Type Severity Reaction Status Date / Time Penicillins Allergy Severe Unresponsiv Verified 07/09/22 01:06 e Review of Systems Review of Systems Narrative: GENERAL: negative chills, fatigue, malaise, fever, sweats. HEENT: negative sinus pain, ear pain, sore throat RESPIRATORY: Positive chest tightness and dyspnea, cough CARDIOVASCULAR: negative chest pain, palpitations GASTROINTESTINAL: negative nausea, vomiting, abdominal pain : negative dysuria, frequency, hematuria MUSCULOSKELETAL: negative muscle or bony pain SKIN: negative rash, skin lesions NEUROLOGIC: negative weakness, numbness ROS Unobtainable: All systems reviewed & are unremarkable except as noted in HPI and below Patient History Medical History Asthma Social History Smoking Status: Current every day smoker Smoking Status: Current every day smoker tobacco type: cigarettes and vaping alcohol intake frequency: a few times a week Substance Use Type: marijuana Exam Narrative Exam Narrative: GENERAL: in no distress, not toxic not dyspneic HEAD: Normocephalic. EYES: Pupils equal round ENT: Mucous membranes moist. NECK: Trachea midline. CARDIOVASCULAR: Regular rate and rhythm RESPIRATORY: Speaking full sentences but there is diminished bilateral lung sounds with basilar mild wheezing bilaterally. Patient in no respiratory distress. GASTROINTESTINAL: Abdomen soft, non-tender EXTREMITIES: No gross deformities. BACK: No flank tenderness. NEURO: AOx4. SKIN: Warm and dry PSYCH: Not anxious, is cooperative Initial Vital Signs Initial Vital Signs: Vital Signs Temperature 98.1 F 11/02/22 08:57 Pulse Rate 120 H 11/02/22 08:57 Respiratory Rate 20 11/02/22 08:57 Blood Pressure 145/96 H 11/02/22 08:57 Pulse Oximetry 97 11/02/22 08:57 Oxygen Delivery Method Room Air 11/02/22 08:57 Course Orders Ordered: Discontinued Medications Albuterol (Albuterol 2.5 Mg/3 Ml Neb (Adult)) 2.5 mg INH NOW ONE Stop: 11/02/22 09:20 Last Admin: 11/02/22 09:21 Dose: 2.5 mg Documented By: ASHWINI Sodium Chloride (Normal Saline 0.9%) 1,000 mls @ 1,000 mls/hr IV BOLUS ONE Stop: 11/02/22 10:26 Last Infusion: 11/02/22 10:26 Dose: 0 mls/hr Documented By: Admin: 11/02/22 09:40 Dose: 1,000 mls/hr Documented By: SKYLA Methylprednisolone (Methylprednisolone 125 Mg/2 Ml Vial) 125 mg IV NOW ONE Stop: 11/02/22 09:28 Last Admin: 11/02/22 09:41 Dose: 125 mg Documented By: SKYLA Vital Signs Vital signs: Vital Signs - 8 hr 11/02/22 08:57 11/02/22 09:21 Temperature 98.1 F Pulse Rate 120 H 97 H Respiratory Rate 20 14 Blood Pressure 145/96 H Pulse Oximetry 97 94 Oxygen Delivery Method Room Air Room Air MDM - SOB/Dyspnea Lab Data 11/02/22 09:03 11/02/22 09:03 Labs: Lab Results 11/02/22 11/02/22 11/02/22 Range/Units 09:03 09:03 09:03 WBC 6.2 (4.5-11.0) X10^3/uL RBC 4.62 (4.5-5.9) X10^6/uL Hgb 15.4 (13.5-17.5) g/dL Hct 43.9 (41-53) % MCV 95.1 (80-100) fL MCH 33.3 (26-34) PG MCHC 35.0 (30-36) % RDW 12.7 (11.6-14.8) % Plt Count 273 (150-400) X10^3/uL Neut % (Auto) 63.4 (50-75) % Lymph % (Auto) 23.5 L (25-40) % [place] % (Auto) 10.1 (3-14) % Eos % (Auto) 2.1 (2-4) % Baso % (Auto) 0.9 (0-2) % Neut # (Auto) 3900 (0182-6222) /uL Lymph # (Auto) 1500 (3495-7272) /uL [place] # (Auto) 600 (0-900) /uL Eos # (Auto) 100 (0-450) /uL Baso # (Auto) 100 (0-100) /uL PT 12.5 (10.1-12.7) SECONDS INR 1.1 (0.9-1.3) Sodium 137 (137-145) mmol/L Potassium 4.1 (3.4-5.1) mmol/L Chloride 102 (98-107) mmol/L Carbon Dioxide 27 (22-32) mmol/L BUN 14 (9-20) mg/dL Creatinine 0.76 (0.66-1.25) mg/dL Estimated GFR > 60 (>60) mL/min BUN/Creatinine Ratio 18.4 (6-22) Glucose 103 H (70-100) mg/dL Lactate (0.7-2.1) mmol/L Calcium 9.2 (8.4-10.2) mg/dL Total Bilirubin 1.2 (0.2-1.3) mg/dL AST 30 (17-59) IU/L ALT 26 (<50) IU/L Alkaline Phosphatase 50 (38-126) U/L Troponin I < 0.012 (0.01-0.034) ng/mL NT-Pro-B Natriuret Pep < 20 (<125) pg/mL Total Protein 7.2 (6.3-8.2) g/dL Albumin 4.6 (3.5-5.0) g/dL Globulin 2.6 (1.7-4.1) g/dL Albumin/Globulin Ratio 1.8 (1.0-2.8) 11/02/22 Range/Units 09:03 WBC (4.5-11.0) X10^3/uL RBC (4.5-5.9) X10^6/uL Hgb (13.5-17.5) g/dL Hct (41-53) % MCV (80-100) fL MCH (26-34) PG MCHC (30-36) % RDW (11.6-14.8) % Plt Count (150-400) X10^3/uL Neut % (Auto) (50-75) % Lymph % (Auto) (25-40) % [place] % (Auto) (3-14) % Eos % (Auto) (2-4) % Baso % (Auto) (0-2) % Neut # (Auto) (3004-9724) /uL Lymph # (Auto) (7684-0072) /uL [place] # (Auto) (0-900) /uL Eos # (Auto) (0-450) /uL Baso # (Auto) (0-100) /uL PT (10.1-12.7) SECONDS INR (0.9-1.3) Sodium (137-145) mmol/L Potassium (3.4-5.1) mmol/L Chloride (98-107) mmol/L Carbon Dioxide (22-32) mmol/L BUN (9-20) mg/dL Creatinine (0.66-1.25) mg/dL Estimated GFR (>60) mL/min BUN/Creatinine Ratio (6-22) Glucose (70-100) mg/dL Lactate 1.3 (0.7-2.1) mmol/L Calcium (8.4-10.2) mg/dL Total Bilirubin (0.2-1.3) mg/dL AST (17-59) IU/L ALT (<50) IU/L Alkaline Phosphatase (38-126) U/L Troponin I (0.01-0.034) ng/mL NT-Pro-B Natriuret Pep (<125) pg/mL Total Protein (6.3-8.2) g/dL Albumin (3.5-5.0) g/dL Globulin (1.7-4.1) g/dL Albumin/Globulin Ratio (1.0-2.8) Imaging Data Chest x-ray: Radiologist's Impression: [address] [address] XRay Report Signed Patient: Nain Smith MR#: [id number] : 1975 Acct:[id number] Age/Sex: 47 / M Date of Service: 11/02/22 Loc: ED Accession Number: [id number] ?? Procedure: XR chest 1V Ordering Provider: Jersey Roca MD PROCEDURE:? XR CHEST 1V ? INDICATIONS:? Shortness of breath ? TECHNIQUE:? One view of the chest was acquired.? ? COMPARISON:? [facility], CR, XR CHEST 2V, 03/24/2022, 22:56.? [facility], CR, XR CHEST 1V, 12/24/2021, 7:06.? [facility], CR, XR CHEST 1V, 04/12/2022, 13:23. ? FINDINGS:? ? Surgical changes and devices:? None.? ? Lungs and pleura:? Lungs are clear.? No pleural effusions or pneumothorax.? ? Mediastinum:? Mediastinal contours appear normal.? Heart size is normal.? ? Bones and chest wall:? No suspicious bony lesions.? Overlying soft tissues appear unremarkable.? ? ? IMPRESSION:? No acute cardiopulmonary abnormality. ? ? ? Dictated by: Randall Wheatley M.D. on 11/02/2022 at 10:08 ? ? Approved by: Randall Wheatley M.D. on 11/02/2022 at 10:09 ? [facility] Narrative Medical decision making narrative: Patient brought in by ambulance for asthma exacerbation. Patient receiving a DuoNeb by EMS. Patient had verbal confrontation with someone on the street today and triggered his asthma. He states he is had stress-induced asthma in the past. He has an inhaler that is outdated and does not work very well. Patient does have wheezing and diminished lung sounds. Recent upper respiratory infection. After history and exam respiratory therapist for evaluation, nebulizing albuterol treatment, Solu-Medrol, normal saline, CBC CMP chest x-ray, ekg monitor tech MDM CC: Shortness of breath Complicating co-morbidities: History asthma/cigarette smoke Data collected from: Patient and EMS Medical records reviewed: Numerous visits here this year for asthma exacerbation Differential considered: Includes but not limited to asthma exacerbation/pneumonia/bronchitis Exam documented above, pertinent findings include: Diminished lung sounds with wheezing Lab Test results independently reviewed as above. Pertinent findings: WBC 6.2 INR 1.1 sodium 137 potassium 4.1 troponin less than 0.012 BNP less than 20 Imaging studies independently reviewed: Chest x-ray no acute finding Treatments: Solu-Medrol normal saline albuterol nebulizer Re-evaluations: 10:28 a.m.. Patient feeling much better after breathing treatment Solu-Medrol and normal saline. Patient less anxious. Reviewed results with patient they are reassuring. He states this is triggered by his stress. Due to the argument this morning. He does have family doctor to follow up with Discussion: Appropriate for discharge home. Patient has asthma attack triggered by emotional event. History of stress-induced asthma. Return precau tions reviewed with him. He has a family doctor. Renewal prescription for inhaler provided. Not toxic at discharge. He desires discharge home Diagnosis: Asthma exacerbation Discharge Plan Departure Patient Disposition: Home Clinical Impression: Asthma with exacerbation Instructions: DI for Asthma -- Adult Activity Restrictions/Additional Instructions: Please see family doctor next week for re-evaluation. Laboratory studies and results today are reassuring. Your asthma likely triggered as you have had stress-induced triggers before. Please do try to stop smoking. Continue inh aler as needed for asthma. Prescription for a new inhaler has been provided for you. Return if worse for any questions or concerns Prescriptions: New albuterol sulfate [Ventolin HFA] 90 mcg/actuation HFA aerosol inhaler 2 inhalation INHALATION QID PRN (Reason: shortness of breath or wheezing) Qty: 6.7 0RF No Action fluticasone propion-salmeterol 230-21 mcg/actuation HFA aerosol inhaler 2 inh inhalation BID Qty: 12 3RF azithromycin 250 mg tablet See Rx Instructions .ROUTE .COMPLEX Qty: 6 0RF Rx Instructions: For 250 mg dose pack: take 500 mg today (day 1), then 250 mg for 4 days (days 2-5) fluticasone propion-salmeterol [Advair HFA] 230-21 mcg/actuation HFA aerosol inhaler 2 puff inhalation Q12H Qty: 12 0RF albuterol sulfate 90 mcg/actuation HFA aerosol inhaler 2 puff inhalation Q4-6H PRN (Reason: shortness of breath or wheezing) Qty: 8.5 0RF albuterol sulfate 90 mcg/actuation HFA aerosol inhaler 2 puff inhalation Q6H PRN (Reason: shortness of breath or wheezing) Qty: 8.5 6RF albuterol sulfate 90 mcg/actuation HFA aerosol inhaler 2 puff inhalation Q4-6H PRN (Reason: shortness of breath or wheezing) Qty: 8.5 0RF prednisone 10 mg tablet 10 mg PO DAILY Qty: 30 0RF Rx Instructions: day 1-3: 40 mg once a day day 4-6: 30 mg once a day day 7-9: 20 mg once a day day 10-12: 10 mg once a day Referrals: *Temp,ED* [Non-Staff] - Stand Alone Forms: Patient Portal/API
[2022-11-02 09:29] LABS: Alanine Aminotransferase 26 IU/L (<50); Albumin 4.6 g/dL (3.5-5.0); Albumin Globulin Ratio 1.8 (1.0-2.8); Alkaline Phosphatase 50 U/L (38-126); Aspartate Aminotransferase 30 IU/L (17-59); BUN Creatinine Ratio 18.4 (6-22); Bilirubin Total 1.2 mg/dL (0.2-1.3); Blood Urea Nitrogen 14 mg/dL (9-20); Calcium 9.2 mg/dL (8.4-10.2); Carbon Dioxide 27 mmol/L (22-32); Chloride 102 mmol/L (98-107); Estimated Glomerular Filt Rate > 60 mL/min (>60); Globulin 2.6 g/dL (1.7-4.1); Glucose 103 mg/dL (70-100); HEMOLYSIS < 15 (0-50); Lactate (Lactic Acid) 1.3 mmol/L (0.7-2.1); Potassium 4.1 mmol/L (3.4-5.1); Sodium 137 mmol/L (137-145); Total Protein 7.2 g/dL (6.3-8.2)
[2022-11-02 09:30] VITALS: BP 137/94; PULSE 94; RESP 17; O2SAT 93
[2022-11-02 09:40] LABS: NT-proBNP (BNP-Adult 18+) < 20 pg/mL (<125); Troponin I < 0.012 ng/mL (0.01-0.034)
[2022-11-02] MEDS: SODIUM CHLORIDE 0.9% 1,000 ML 1000 ML IV (09:40)
[2022-11-02] MEDS: methylPREDNISolone 125 MG/2 ML VIAL IV (09:41)
[2022-11-02 10:00] VITALS: BP 142/88; PULSE 87; RESP 18; O2SAT 92
[2022-11-02 10:30] VITALS: BP 155/91; PULSE 77; RESP 21; O2SAT 96
== END 2022-11-02 10:44 | disposition home or self-care (01) ==
PROVIDERS: Emergency Provider Emergency Medicine; PCP Nurse Practitioner Family
DX: J45.901 Unspecified asthma with (acute) exacerbation (principal)
CPT/HCPCS: 36415; 71045; 80053; 83605; 83880; 84484; 85025; 85610; 94640; 96361; 96374; 99284; J2930; J7613

== ENCOUNTER 2022-11-12 15:34 | Emergency (ER) | payer MEDICARE, MEDICAID, SELFPAY ==
[2022-11-12] VITALS (8 sets, daily range): BP systolic 135–163; BP diastolic 92–102; PULSE 74–123; RESP 22–26; TEMP 36.7; O2SAT 92–100
[2022-11-12] MEDS: predniSONE 20 MG TABLET PO (15:46)
[2022-11-12] MEDS: ALBUTEROL 2.5 MG/3 ML NEB (ADULT) 20 MG INH (15:47)
--- NOTE | 2022-11-12 15:50 | ED_ITS ---
HPI - General Adult General Chief complaint: Shortness of Breath/Dyspnea Stated complaint: Needs nebulizer Time Seen by Provider: 11/12/22 15:42 Source: patient and family Mode of arrival: Ambulatory History of Present Illness HPI narrative: Patient is a 47-year-old male. Does have history of asthma. Has been seen here in the emergency department in the past for issues with wheezing and respiratory distress. He states that he had a fairly sudden onset of shortness of breath after potentially some sort of environmental exposure. He denies any fevers. He did try to use his inhalers at home but this was unsuccessful. No sinus con gestion. Related Data Previous Rx's Medication Instructions Recorded fluticasone propionate 230 2 inh inhalation BID #12 grams 08/18/21 mcg-salmeterol 21 mcg/actuation HFA inhaler albuterol sulfate 90 mcg/actuation 2 puff inhalation Q6H PRN 09/28/21 aerosol inhaler shortness of breath or wheezing #8.5 grams albuterol sulfate 90 mcg/actuation 2 puff inhalation Q4-6H PRN 01/18/22 aerosol inhaler shortness of breath or wheezing #8.5 grams azithromycin 250 mg tablet See Rx Instructions PO .COMPLEX #6 03/25/22 tabs prednisone 10 mg tablet 10 mg PO DAILY #30 tabs 04/12/22 albuterol sulfate 90 mcg/actuation 2 puff inhalation Q4-6H PRN 07/09/22 aerosol inhaler shortness of breath or wheezing #8.5 grams fluticasone propionate 230 2 puff inhalation Q12H #12 grams 07/09/22 mcg-salmeterol 21 mcg/actuation HFA inhaler (Advair HFA) albuterol sulfate 90 mcg/actuation 2 inhalation inhalation QID PRN 11/02/22 aerosol inhaler (Ventolin HFA) shortness of breath or wheezing #6.7 grams Allergies Allergy/AdvReac Type Severity Reaction Status Date / Time Penicillins Allergy Severe Unresponsiv Verified 07/09/22 01:06 e Review of Systems Constitutional Constitutional: Reports system reviewed and no additional complaints, except as documented Respiratory Respiratory: Reports system reviewed and no additional complaints, except as documented Gastrointestinal Gastrointestinal: Reports system reviewed and no additional complaints, except as documented Musculoskeletal Musculoskeletal: Reports system reviewed and no additional complaints, except as documented Integumentary/Breasts Skin/Breast: Reports system reviewed and no additional complaints, except as documented Neurologic Neurologic: Reports system reviewed and no additional complaints, except as documented Hematologic/Lymphatic On Anticoagulants: No Patient History Medical History Asthma Social History Smoking Status: Current every day smoker Smoking Status: Current every day smoker tobacco type: cigarettes and vaping alcohol intake frequency: a few times a week Substance Use Type: marijuana Exam Initial Vital Signs Initial Vital Signs: Vital Signs Temperature 98.1 F 11/12/22 15:35 Pulse Rate 123 H 11/12/22 15:35 Respiratory Rate 26 H 11/12/22 15:35 Blood Pressure 160/102 H 11/12/22 15:35 Pulse Oximetry 95 11/12/22 15:35 Oxygen Delivery Method Room Air 11/12/22 15:35 HENMT Head: normal to inspection and normocephalic Resp Effort & Inspection: labored, no respiratory distress and tachypneic Auscultation: diminished lung sounds and wheezes Cardio Rate: tachycardic Rhythm: regular rhythm GI Inspection: normal to inspection Skin General: no rashes or lesions noted Neuro General: patient alert, patient awake and moves all extremities Course Orders Ordered: ED Orders 11/12/22 15:42 RT Consult Eval and Treat NOW Discontinued Medications Albuterol (Albuterol 2.5 Mg/3 Ml Neb (Adult)) 20 mg INH NOW ONE Stop: 11/12/22 15:43 Last Admin: 11/12/22 15:47 Dose: 20 mg Documented By: MATT Prednisone (Prednisone 20 Mg Tablet) 20 mg PO NOW ONE Stop: 11/12/22 15:44 Last Admin: 11/12/22 15:46 Dose: 20 mg Documented By: SB Vital Signs Vital signs: Vital Signs - 8 hr 11/12/22 15:35 11/12/22 15:49 11/12/22 16:13 Temperature 98.1 F Pulse Rate 123 H 113 H Respiratory Rate 26 H Blood Pressure 160/102 H Pulse Oximetry 95 95 100 Oxygen Delivery Method Room Air Room Air Oxygen Flow Rate 0 Fraction of Inspired Oxygen 21 11/12/22 16:30 11/12/22 16:30 11/12/22 17:11 Temperature Pulse Rate 105 H Respiratory Rate Blood Pressure 150/101 H 135/96 H Pulse Oximetry 100 Oxygen Delivery Method Room Air Oxygen Flow Rate Fraction of Inspired Oxygen 11/12/22 17:11 Temperature Pulse Rate 113 H Respiratory Rate Blood Pressure Pulse Oximetry 99 Oxygen Delivery Method Room Air Oxygen Flow Rate Fraction of Inspired Oxygen Medical Decision Making Medical Records Medical records reviewed: Yes I reviewed the patient's medical records. MDM Narrative Medical decision making narrative: Patient does have a history of asthma. It appears that there was a fairly sudden trigger for him prior to arrival that his inhalers were not working for. Patient received a continuous DuoNeb here and a dose of steroids. He stated that afterwards he was feeling much better. He denied the need for a refill of any of his medications. Patient states he is feeling well enough to go home. He was given return precautions. He expressed understanding and agreement. Discharge Plan Departure Patient Disposition: Elopement Clinical Impression: Asthma with exacerbation Instructions: Asthma -- Adult Activity Restrictions/Additional Instructions: Continue to take all of your medications as directed. Return to the emergency department for new or worsening symptoms. Prescriptions: No Action fluticasone propion-salmeterol 230-21 mcg/actuation HFA aerosol inhaler 2 inh inhalation BID Qty: 12 3RF azithromycin 250 mg tablet See Rx Instructions .ROUTE .COMPLEX Qty: 6 0RF Rx Instructions: For 250 mg dose pack: take 500 mg today (day 1), then 250 mg for 4 days (days 2-5) fluticasone propion-salmeterol [Advair HFA] 230-21 mcg/actuation HFA aerosol inhaler 2 puff inhalation Q12H Qty: 12 0RF albuterol sulfate 90 mcg/actuation HFA aerosol inhaler 2 puff inhalation Q4-6H PRN (Reason: shortness of breath or wheezing) Qty: 8.5 0RF albuterol sulfate 90 mcg/actuation HFA aerosol inhaler 2 puff inhalation Q6H PRN (Reason: shortness of breath or wheezing) Qty: 8.5 6RF albuterol sulfate 90 mcg/actuation HFA aerosol inhaler 2 puff inhalation Q4-6H PRN (Reason: shortness of breath or wheezing) Qty: 8.5 0RF prednisone 10 mg tablet 10 mg PO DAILY Qty: 30 0RF Rx Instructions: day 1-3: 40 mg once a day day 4-6: 30 mg once a day day 7-9: 20 mg once a day day 10-12: 10 mg once a day albuterol sulfate [Ventolin HFA] 90 mcg/actuation HFA aerosol inhaler 2 inhalation INHALATION QID PRN (Reason: shortness of breath or wheezing) Qty: 6.7 0RF Referrals: Shaniqua Grady RN [Primary Care Provider] -
--- NOTE | 2022-11-12 16:45 | PC.NURSE ---
Patient denies chest pain, states he is feeling better while nebulizer treatment is working.
== END 2022-11-12 18:25 | disposition home or self-care (01) ==
PROVIDERS: Emergency Provider Emergency Medicine; PCP Nurse Practitioner Family
DX: J45.901 Unspecified asthma with (acute) exacerbation (principal)
CPT/HCPCS: 94640; 99283; J7613

== ENCOUNTER 2023-03-15 16:50 | Emergency (ER) | payer MEDICARE, MEDICAID, SELFPAY ==
[2023-03-15 16:57] VITALS: BP 144/93; PULSE 117; RESP 18; TEMP 36.2; O2SAT 96; BMI 24.3
--- NOTE | 2023-03-15 17:16 | DI.RAD.S_ITS ---
PROCEDURE: XR CHEST 1V INDICATIONS: sob TECHNIQUE: One view of the chest was acquired. COMPARISON: [facility], CR, XR CHEST 1V, 11/02/2022, 9:19. [facility], CR, XR CHEST 1V, 04/12/2022, 13:23. FINDINGS: Surgical changes and devices: None. Lungs and pleura: Lungs are clear. No pleural effusions or pneumothorax. Mediastinum: Mediastinal contours appear normal. Heart size is normal. Bones and chest wall: No suspicious bony lesions. Overlying soft tissues appear unremarkable. IMPRESSION: No acute cardiopulmonary abnormality is seen. Dictated by: Torito Mckoy M.D. on 03/15/2023 at 18:32 Approved by: Torito Mckoy M.D. on 03/15/2023 at 18:33
--- NOTE | 2023-03-15 17:17 | ED.SOB ---
HPI - SOB/Dyspnea <Milagro Collins, DO - Last Filed: 03/16/23 18:38> General Chief Complaint: Shortness of Breath/Dyspnea Stated Complaint: states nebulizer Time Seen by Provider: 03/15/23 17:16 Source: patient Mode of arrival: Ambulatory Limitations: no limitations History of Present Illness HPI Narrative: 48-year-old male with history of asthma. Patient continues to use tobacco regularly. Has been seen before for difficulty with breathing. Patient states he feels tight and wheezy. It has recently been very cold locally he is currently homeless and states that is seems to be worsening his breathing. He does have Dulera that he uses regularly and has albuterol he has lost his spacer. Denies fevers. States he had several small spots on his face which have not been healing feels like he has developing a little bit of abscess on the side of his face. Patient denies any cold cough or congestion otherwise. No fevers. He is felt shaky. Denies chestk pain, has not had any nausea vomiting, GI or urinary symptoms. Patient notes he is worried about toxins and poisons. States that he has been handling the cold weather very well that he feels very comfortable outdoors. He states no surgeries. Allergic to penicillin. No other reported medication allergies. Does use tobacco, occasional alcohol, uses marijuana denies other IV drugs. Related Data Previous Rx's Medication Instructions Recorded fluticasone propionate 230 2 inh inhalation BID #12 grams 08/18/21 mcg-salmeterol 21 mcg/actuation HFA inhaler albuterol sulfate 90 mcg/actuation 2 puff inhalation Q6H PRN 09/28/21 aerosol inhaler shortness of breath or wheezing #8.5 grams albuterol sulfate 90 mcg/actuation 2 puff inhalation Q4-6H PRN 01/18/22 aerosol inhaler shortness of breath or wheezing #8.5 grams azithromycin 250 mg tablet See Rx Instructions PO .COMPLEX #6 03/25/22 tabs prednisone 10 mg tablet 10 mg PO DAILY #30 tabs 04/12/22 albuterol sulfate 90 mcg/actuation 2 puff inhalation Q4-6H PRN 07/09/22 aerosol inhaler shortness of breath or wheezing #8.5 grams fluticasone propionate 230 2 puff inhalation Q12H #12 grams 07/09/22 mcg-salmeterol 21 mcg/actuation HFA inhaler (Advair HFA) albuterol sulfate 90 mcg/actuation 2 inhalation inhalation QID PRN 11/02/22 aerosol inhaler (Ventolin HFA) shortness of breath or wheezing #6.7 grams cephalexin 500 mg capsule 500 mg PO QID 5 days #20 caps 03/15/23 Allergies Allergy/AdvReac Type Severity Reaction Status Date / Time Penicillins Allergy Severe Unresponsiv Verified 03/15/23 16:57 e Review of Systems <Milagro Collins DO - Last Filed: 03/16/23 18:38> Review of Systems ROS Unobtainable: All systems reviewed & are unremarkable except as noted in HPI and below Patient History <Milagro Collins DO - Last Filed: 03/16/23 18:38> Medical History Asthma Social History Smoking Status: Current every day smoker Smoking Status: Current every day smoker tobacco type: cigarettes and vaping alcohol intake frequency: a few times a week Substance Use Type: marijuana Exam <Milagro Collins DO - Last Filed: 03/16/23 18:38> Narrative Exam Narrative: GENERAL: Alert and oriented x three, male in mild distress. HEENT: Head normocephalic, atraumatic, EOMI, pupils reactive, face symmetric, moist mucous membranes NECK: Supple, full range of motion CARDIOVASCULAR: Slightly tachycardic but Regular rate and rhythm without murmurs, rubs or gallops. RESPIRATORY: Breath sounds equal mildly diminished bilaterally, no wheezes rales or rhonchi. No tachypnea accessory muscle use. ABDOMEN: Soft, nontender. Normoactive bowel sounds all 4 quadrants. No guarding or rebound, rigidity, no mass : No CVA tenderness EXTREMITIES: Normal range of motion, no clubbing or edema. Neurovascularly intact NEUROLOGICAL: Cranial nerves II through XII grossly intact. Moving all extremities, patient is slightly shaky. SKIN: Warm, dry, no petechiae, no rashes or lesions. Initial Vital Signs Initial Vital Signs: Vital Signs Temperature 97.2 F L 03/15/23 16:57 Pulse Rate 117 H 03/15/23 16:57 Respiratory Rate 18 03/15/23 16:57 Blood Pressure 144/93 H 03/15/23 16:57 Pulse Oximetry 96 03/15/23 16:57 Oxygen Delivery Method Room Air 03/15/23 16:57 <Braden Herrera DO - Last Filed: 03/15/23 21:39> Initial Vital Signs Initial Vital Signs: Vital Signs Temperature 97.2 F L 03/15/23 16:57 Pulse Rate 117 H 03/15/23 16:57 Respiratory Rate 18 03/15/23 16:57 Blood Pressure 144/93 H 03/15/23 16:57 Pulse Oximetry 96 03/15/23 16:57 Oxygen Delivery Method Room Air 03/15/23 16:57 Course <Milagro Collins DO - Last Filed: 03/16/23 18:38> Orders Ordered: Discontinued Medications Albuterol (Albuterol 2.5 Mg/3 Ml Neb (Adult)) 5 mg INH NOW ONE Stop: 03/15/23 17:19 Last Admin: 03/15/23 17:21 Dose: 5 mg Documented By: JUAN ALBERTO Cephalexin HCl (Cephalexin 250 Mg Capsule) 500 mg PO NOW ONE Stop: 03/15/23 18:46 Last Admin: 03/15/23 18:59 Dose: 500 mg Documented By: HEATHER Vital Signs Vital signs: Vital Signs - 8 hr 03/15/23 16:57 03/15/23 17:21 03/15/23 18:54 Temperature 97.2 F L Pulse Rate 117 H 112 H 66 Respiratory Rate 18 22 Blood Pressure 144/93 H 123/84 Pulse Oximetry 96 96 93 Oxygen Delivery Method Room Air Room Air Room Air <Braden Herrera DO - Last Filed: 03/15/23 21:39> Orders Ordered: Discontinued Medications Albuterol (Albuterol 2.5 Mg/3 Ml Neb (Adult)) 5 mg INH NOW ONE Stop: 03/15/23 17:19 Last Admin: 03/15/23 17:21 Dose: 5 mg Documented By: JUAN ALBERTO Cephalexin HCl (Cephalexin 250 Mg Capsule) 500 mg PO NOW ONE Stop: 03/15/23 18:46 Last Admin: 03/15/23 18:59 Dose: 500 mg Documented By: HEATHER Vital Signs Vital signs: Vital Signs - 8 hr 03/15/23 16:57 03/15/23 17:21 03/15/23 18:54 Temperature 97.2 F L Pulse Rate 117 H 112 H 66 Respiratory Rate 18 22 Blood Pressure 144/93 H 123/84 Pulse Oximetry 96 96 93 Oxygen Delivery Method Room Air Room Air Room Air MDM - SOB/Dyspnea <Milagro Collins, DO - Last Filed: 03/16/23 18:38> Lab Data 03/15/23 17:48 03/15/23 17:48 Labs: Lab Results 03/15/23 Range/Units 17:48 WBC 8.6 (4.5-11.0) X10^3/uL RBC 4.71 (4.5-5.9) X10^6/uL Hgb 15.5 (13.5-17.5) g/dL Hct 44.4 (41-53) % MCV 94.3 (80-100) fL MCH 32.9 (26-34) PG MCHC 34.9 (30-36) % RDW 12.3 (11.6-14.8) % Plt Count 274 (150-400) X10^3/uL Neut % (Auto) 68.0 (50-75) % Lymph % (Auto) 18.2 L (25-40) % Storey % (Auto) 10.5 (3-14) % Eos % (Auto) 2.6 (2-4) % Baso % (Auto) 0.7 (0-2) % Neut # (Auto) 5900 (9706-1495) /uL Lymph # (Auto) 1600 (4510-1929) /uL Storey # (Auto) 900 (0-900) /uL Eos # (Auto) 200 (0-450) /uL Baso # (Auto) 100 (0-100) /uL Sodium 138 (137-145) mmol/L Potassium 4.2 (3.4-5.1) mmol/L Chloride 102 (98-107) mmol/L Carbon Dioxide 31 (22-32) mmol/L BUN 23 H (9-20) mg/dL Creatinine 0.90 (0.66-1.25) mg/dL Estimated GFR > 60 (>60) mL/min BUN/Creatinine Ratio 25.6 H (6-22) Glucose 114 H (70-100) mg/dL Calcium 10.0 (8.4-10.2) mg/dL Total Bilirubin 0.6 (0.2-1.3) mg/dL AST 28 (17-59) IU/L ALT 26 (<50) IU/L Alkaline Phosphatase 51 (38-126) U/L Total Creatine Kinase 143 (55-170) U/L Troponin I < 0.012 (0.01-0.034) ng/mL NT-Pro-B Natriuret Pep < 20 (<125) pg/mL Total Protein 7.3 (6.3-8.2) g/dL Albumin 4.5 (3.5-5.0) g/dL Globulin 2.8 (1.7-4.1) g/dL Albumin/Globulin Ratio 1.6 (1.0-2.8) Lipase 79 (23-300) U/L MDM Narrative Medical decision making narrative: Patient is slightly diminished bilaterally, patient is tachycardic but otherwise mild respiratory distress. Patient was given albuterol, signed out to Dr. Herrera while workup pending. Dr herrera: Received turned over. Reviewed patient's history and physical exam and workup. Patient reports improvement of symptoms after treatments here in the ER. He is still having some wheezing however he states that he does not need another breathing treatment. His chest x-ray shows no signs of pneumonia. EKG is unremarkable. He does have a small area of cellulitis along his left mandibular jaw line. There was no indication of a deep abscess. Will place him on antibiotics for this. No fevers. Nontoxic appearing. He states he does not need a refill of any of his medicines. Was given return precautions. He expressed understanding and agreement. <Braden Herrera, - Last Filed: 03/15/23 21:39> Lab Data Attestation: I reviewed the patient's lab results. Labs: Lab Results 03/15/23 Range/Units 17:48 WBC 8.6 (4.5-11.0) X10^3/uL RBC 4.71 (4.5-5.9) X10^6/uL Hgb 15.5 (13.5-17.5) g/dL Hct 44.4 (41-53) % MCV 94.3 (80-100) fL MCH 32.9 (26-34) PG MCHC 34.9 (30-36) % RDW 12.3 (11.6-14.8) % Plt Count 274 (150-400) X10^3/uL Neut % (Auto) 68.0 (50-75) % Lymph % (Auto) 18.2 L (25-40) % Storey % (Auto) 10.5 (3-14) % Eos % (Auto) 2.6 (2-4) % Baso % (Auto) 0.7 (0-2) % Neut # (Auto) 5900 (2772-5817) /uL Lymph # (Auto) 1600 (5235-2718) /uL Storey # (Auto) 900 (0-900) /uL Eos # (Auto) 200 (0-450) /uL Baso # (Auto) 100 (0-100) /uL Sodium 138 (137-145) mmol/L Potassium 4.2 (3.4-5.1) mmol/L Chloride 102 (98-107) mmol/L Carbon Dioxide 31 (22-32) mmol/L BUN 23 H (9-20) mg/dL Creatinine 0.90 (0.66-1.25) mg/dL Estimated GFR > 60 (>60) mL/min BUN/Creatinine Ratio 25.6 H (6-22) Glucose 114 H (70-100) mg/dL Calcium 10.0 (8.4-10.2) mg/dL Total Bilirubin 0.6 (0.2-1.3) mg/dL AST 28 (17-59) IU/L ALT 26 (<50) IU/L Alkaline Phosphatase 51 (38-126) U/L Total Creatine Kinase 143 (55-170) U/L Troponin I < 0.012 (0.01-0.034) ng/mL NT-Pro-B Natriuret Pep < 20 (<125) pg/mL Total Protein 7.3 (6.3-8.2) g/dL Albumin 4.5 (3.5-5.0) g/dL Globulin 2.8 (1.7-4.1) g/dL Albumin/Globulin Ratio 1.6 (1.0-2.8) Lipase 79 (23-300) U/L Imaging Data Chest x-ray: Radiologist's Impression: PROCEDURE: XR CHEST 1V INDICATIONS: sob TECHNIQUE: One view of the chest was acquired. COMPARISON: [facility], CR, XR CHEST 1V, 11/02/2022, 9:19. [facility], CR, XR CHEST 1V, 04/12/2022, 13:23. FINDINGS: Surgical changes and devices: None. Lungs and pleura: Lungs are clear. No pleural effusions or pneumothorax. Mediastinum: Mediastinal contours appear normal. Heart size is normal. Bones and chest wall: No suspicious bony lesions. Overlying soft tissues appear unremarkable. IMPRESSION: No acute cardiopulmonary abnormality is seen ECG Data Attestation: I personally reviewed and interpreted this ECG as follows: Interpretation: Sinus rhythm Left axis deviation Normal QRS Normal QTC No ST T wave changes MDM Narrative Medical decision making narrative: Patient is slightly diminished bilaterally, patient is tachycardic but otherwise mild respiratory distress. Patient was given albuterol Labs Chest x-ray EKG Dr herrera: Received turned over. Reviewed patient's history and physical exam and workup. Patient reports improvement of symptoms after treatments here in the ER. He is still having some wheezing however he states that he does not need another breathing treatment. His chest x-ray shows no signs of pneumonia. EKG is unremarkable. He does have a small area of cellulitis along his left mandibular jaw line. There was no indication of a deep abscess. Will place him on antibiotics for this. No fevers. Nontoxic appearing. He states he does not need a refill of any of his medicines. Was given return precautions. He expressed understanding and agreement. Discharge Plan Departure Patient Disposition: Home Clinical Impression: Cellulitis, Reactive airway disease Instructions: DI for Cellulitis -- Adult, DI for Asthma -- Adult Activity Restrictions/Additional Instructions: It is important to continue to take all of your medications as directed. Take the antibiotics as directed as well. Return to the emergency department for new symptoms. Prescriptions: New cephalexin 500 mg capsule 500 mg PO QID 5 Days Qty: 20 0RF No Action fluticasone propion-salmeterol 230-21 mcg/actuation HFA aerosol inhaler 2 inh inhalation BID Qty: 12 3RF azithromycin 250 mg tablet See Rx Instructions .ROUTE .COMPLEX Qty: 6 0RF Rx Instructions: For 250 mg dose pack: take 500 mg today (day 1), then 250 mg for 4 days (days 2-5) fluticasone propion-salmeterol [Advair HFA] 230-21 mcg/actuation HFA aerosol inhaler 2 puff inhalation Q12H Qty: 12 0RF albuterol sulfate 90 mcg/actuation HFA aerosol inhaler 2 puff inhalation Q4-6H PRN (Reason: shortness of breath or wheezing) Qty: 8.5 0RF albuterol sulfate 90 mcg/actuation HFA aerosol inhaler 2 puff inhalation Q6H PRN (Reason: shortness of breath or wheezing) Qty: 8.5 6RF albuterol sulfate 90 mcg/actuation HFA aerosol inhaler 2 puff inhalation Q4-6H PRN (Reason: shortness of breath or wheezing) Qty: 8.5 0RF prednisone 10 mg tablet 10 mg PO DAILY Qty: 30 0RF Rx Instructions: day 1-3: 40 mg once a day day 4-6: 30 mg once a day day 7-9: 20 mg once a day day 10-12: 10 mg once a day albuterol sulfate [Ventolin HFA] 90 mcg/actuation HFA aerosol inhaler 2 inhalation INHALATION QID PRN (Reason: shortness of breath or wheezing) Qty: 6.7 0RF Referrals: Shaniqua Grady RN [Primary Care Provider] - Stand Alone Forms: Patient Portal/API
[2023-03-15 17:21] VITALS: PULSE 112; RESP 22; O2SAT 96
[2023-03-15] MEDS: ALBUTEROL 2.5 MG/3 ML NEB (ADULT) 5 MG INH (17:21)
[2023-03-15 17:57] LABS: Add Manual Diff / Slide Review NO; Basophils Absolute Auto 100 /uL (0-100); Basophils Percent Auto 0.7 % (0-2); Eosinophils Absolute Auto 200 /uL (0-450); Eosinophils Percent Auto 2.6 % (2-4); Hematocrit 44.4 % (41-53); Hemoglobin 15.5 g/dL (13.5-17.5); Lymphocytes Absolute Auto 1600 /uL (1100-4500); Lymphocytes Percent Auto 18.2 % (25-40); Mean Corpuscular HGB Conc 34.9 % (30-36); Mean Corpuscular Hemoglobin 32.9 PG (26-34); Mean Corpuscular Volume 94.3 fL (80-100); Monocytes Absolute Auto 900 /uL (0-900); Monocytes Percent Auto 10.5 % (3-14); Neutrophils Absolute Auto 5900 /uL (1500-7000); Platelet Count 274 X10^3/uL (150-400); Red Blood Cell Count 4.71 X10^6/uL (4.5-5.9); Red Cell Distribution Width 12.3 % (11.6-14.8); White Blood Cell Count 8.6 X10^3/uL (4.5-11.0)
--- NOTE | 2023-03-15 17:58 | CM.SWNOTE ---
ED SKI PATROLLER Note SKI PATROLLER receives consult from charge accounts audit clerk due to patient's current living situation. junior buyer enter room to meet with patient, patient presents as A/Ox4. Patient endorses he is currently unsheltered and working towards getting a vehicle so [place]. Patient endorses he currently utilizes the bus system, receives SSI and utilizes food hines. Patient endorses he is aware of shelters available to him, patient states he avoids the [facility] area because he does not want to be surrounded by substances and drug use. SKI PATROLLER offers 5 day bus passes through [employer] and patient accepts them. SKI PATROLLER offers resources to patient for shelters, patient declines and states he has their contact information. SKI PATROLLER offers to contact the [employer] for their motel voucher program and patient declines. Plan: patient to d/c to community upon medical clearance. CAROLYN Richardson
[2023-03-15 18:16] LABS: Alanine Aminotransferase 26 IU/L (<50); Albumin 4.5 g/dL (3.5-5.0); Albumin Globulin Ratio 1.6 (1.0-2.8); Alkaline Phosphatase 51 U/L (38-126); Aspartate Aminotransferase 28 IU/L (17-59); BUN Creatinine Ratio 25.6 (6-22); Bilirubin Total 0.6 mg/dL (0.2-1.3); Blood Urea Nitrogen 23 mg/dL (9-20); Carbon Dioxide 31 mmol/L (22-32); Chloride 102 mmol/L (98-107); Creatine Kinase 143 U/L (55-170); Estimated Glomerular Filt Rate > 60 mL/min (>60); Globulin 2.8 g/dL (1.7-4.1); Glucose 114 mg/dL (70-100); HEMOLYSIS < 15 (0-50); Lipase 79 U/L (23-300); Potassium 4.2 mmol/L (3.4-5.1); Sodium 138 mmol/L (137-145); Total Protein 7.3 g/dL (6.3-8.2)
[2023-03-15 18:24] LABS: NT-proBNP (BNP-Adult 18+) < 20 pg/mL (<125)
[2023-03-15 18:27] LABS: Troponin I < 0.012 ng/mL (0.01-0.034)
[2023-03-15 18:54] VITALS: BP 123/84; PULSE 66; O2SAT 93
[2023-03-15] MEDS: cephALEXin 250 MG CAPSULE 500 MG PO (18:59)
== END 2023-03-15 18:54 | disposition home or self-care (01) ==
PROVIDERS: Emergency Medicine; Emergency Provider Emergency Medicine; PCP Nurse Practitioner Family
DX: L03.211 Cellulitis of face (principal); J45.909 Unspecified asthma, uncomplicated; R06.02 Shortness of breath; R00.0 Tachycardia, unspecified
CPT/HCPCS: 36415; 71045; 80053; 82550; 83690; 83880; 84484; 85025; 93005; 93010; 94150; 94640; 99284; J7613

== ENCOUNTER 2023-04-26 06:10 | Emergency (ER) | payer MEDICARE, MEDICAID, SELFPAY ==
[2023-04-26] VITALS (16 sets, daily range): BP systolic 109–149; BP diastolic 70–89; PULSE 87–120; RESP 12–26; TEMP 36.1; O2SAT 92–98; BMI 23.6
--- NOTE | 2023-04-26 06:19 | ED.GENADULT ---
HPI - General Adult <Braden Herrera DO - Last Filed: 04/28/23 17:57> General Chief complaint: Shortness of Breath/Dyspnea Stated complaint: SOB, bad tooth making rt eye hurt and rt ear, Time Seen by Provider: 04/26/23 06:14 Source: patient Mode of arrival: Ambulatory Limitations: no limitations History of Present Illness HPI narrative: 48-year-old male. History of asthma. Is homeless. Does smoke. Is here for evaluation of shortness of breath. The shortness of breath has been an issue for him and he uses his inhaler however sometimes his symptoms just gets so bad that the inhaler is not enough. He also states that he is having pain in a tooth in his right upper jaw that is making his right eye hurt and right ear hurt. No fevers. Related Data Previous Rx's Medication Instructions Recorded fluticasone propionate 230 2 inh inhalation BID #12 grams 08/18/21 mcg-salmeterol 21 mcg/actuation HFA inhaler albuterol sulfate 90 mcg/actuation 2 puff inhalation Q6H PRN 09/28/21 aerosol inhaler shortness of breath or wheezing #8.5 grams albuterol sulfate 90 mcg/actuation 2 puff inhalation Q4-6H PRN 01/18/22 aerosol inhaler shortness of breath or wheezing #8.5 grams azithromycin 250 mg tablet See Rx Instructions PO .COMPLEX #6 03/25/22 tabs prednisone 10 mg tablet 10 mg PO DAILY #30 tabs 04/12/22 albuterol sulfate 90 mcg/actuation 2 puff inhalation Q4-6H PRN 07/09/22 aerosol inhaler shortness of breath or wheezing #8.5 grams fluticasone propionate 230 2 puff inhalation Q12H #12 grams 07/09/22 mcg-salmeterol 21 mcg/actuation HFA inhaler (Advair HFA) albuterol sulfate 90 mcg/actuation 2 inhalation inhalation QID PRN 11/02/22 aerosol inhaler (Ventolin HFA) shortness of breath or wheezing #6.7 grams clindamycin HCl 300 mg capsule 300 mg PO Q6H 7 days #28 caps 04/26/23 prednisone 20 mg tablet 20 mg PO DAILY 5 days #5 tabs 04/26/23 Allergies Allergy/AdvReac Type Severity Reaction Status Date / Time Penicillins Allergy Severe Unresponsiv Verified 03/15/23 16:57 e Review of Systems <Braden Herrera DO - Last Filed: 04/28/23 17:57> Constitutional Constitutional: Reports system reviewed and no additional complaints, except as documented ENT Ears, Nose, Mouth, and Throat: Reports system reviewed and no additional complaints, except as documented Respiratory Respiratory: Reports system reviewed and no additional complaints, except as documented Allergic/Immunologic Allergic/Immunologic: Reports system reviewed and no additional complaints, except as documented Patient History <Braden Herrera DO - Last Filed: 04/28/23 17:57> Medical History Asthma Social History Smoking Status: Current every day smoker Smoking Status: Current every day smoker tobacco type: cigarettes and vaping alcohol intake frequency: a few times a week Substance Use Type: marijuana Exam <DO Prabhakar Quevedo Last Filed: 04/28/23 17:57> Initial Vital Signs Initial Vital Signs: Vital Signs Temperature 97 F L 04/26/23 06:20 Pulse Rate 111 H 04/26/23 06:20 Respiratory Rate 26 H 04/26/23 06:20 Blood Pressure 149/89 H 04/26/23 06:20 Pulse Oximetry 97 04/26/23 06:20 Oxygen Delivery Method Room Air 04/26/23 06:20 Const General: cooperative and comfortable HENMT Head: normal to inspection and normocephalic Teeth and gingiva: other (No definitive abscess noted) HENMT Other: Right tympanic membrane obscured by cerumen Resp Effort & Inspection: cough and tachypneic Auscultation: wheezes Cardio Rate: tachycardic Rhythm: regular rhythm <Rajan De Anda MD - Last Filed: 04/26/23 17:34> Initial Vital Signs Initial Vital Signs: Vital Signs Temperature 97 F L 04/26/23 06:20 Pulse Rate 111 H 04/26/23 06:20 Respiratory Rate 26 H 04/26/23 06:20 Blood Pressure 149/89 H 04/26/23 06:20 Pulse Oximetry 97 04/26/23 06:20 Oxygen Delivery Method Room Air 04/26/23 06:20 Course <Braden Herrera DO - Last Filed: 04/28/23 17:57> Orders Ordered: Discontinued Medications Albuterol (Albuterol 2.5 Mg/3 Ml Neb (Adult)) 5 mg INH NOW ONE Stop: 04/26/23 06:19 Last Admin: 04/26/23 06:21 Dose: 5 mg Documented By: LANI Albuterol (Albuterol 2.5 Mg/3 Ml Neb (Adult)) 2.5 mg INH NOW ONE Stop: 04/26/23 06:56 Last Admin: 04/26/23 07:13 Dose: 2.5 mg Documented By: KARI Albuterol (Albuterol 2.5 Mg/3 Ml Neb (Adult)) 2.5 mg INH NOW ONE Stop: 04/26/23 07:29 Last Admin: 04/26/23 07:42 Dose: 2.5 mg Documented By: KARI Clindamycin HCl (Clindamycin 150 Mg Capsule) 300 mg PO NOW ONE Stop: 04/26/23 07:29 Last Admin: 04/26/23 07:41 Dose: 300 mg Documented By: KARI Magnesium Sulfate (Magnesium Sulfate) 2 gm in 50 mls @ 150 mls/hr IV NOW ONE Stop: 04/26/23 10:14 Last Infusion: 04/26/23 10:55 Dose: Infused Documented By: HEATHER Co-signed By: CHARISSA Admin: 04/26/23 09:59 Dose: 150 mls/hr Documented By: HEATHER Co-signed By: KARI Ibuprofen (Ibuprofen 400 Mg Tablet) 800 mg PO NOW ONE Stop: 04/26/23 06:35 Last Admin: 04/26/23 06:37 Dose: 800 mg Documented By: RENITA Methylprednisolone (Methylprednisolone 125 Mg/2 Ml Vial) 125 mg IV NOW ONE Stop: 04/26/23 07:29 Last Admin: 04/26/23 07:41 Dose: 125 mg Documented By: KARI Vital Signs Vital signs: Vital Signs - 8 hr 04/26/23 09:40 04/26/23 09:40 04/26/23 10:00 Pulse Rate 104 H 96 H Respiratory Rate 19 25 H Blood Pressure 124/85 Pulse Oximetry 92 93 Oxygen Delivery Method Room Air 04/26/23 10:02 04/26/23 10:02 04/26/23 10:15 Pulse Rate 97 H 88 Respiratory Rate 21 21 Blood Pressure 114/71 Pulse Oximetry 92 92 Oxygen Delivery Method 04/26/23 10:15 04/26/23 10:30 04/26/23 10:30 Pulse Rate 94 H Respiratory Rate 22 Blood Pressure 110/70 109/82 Pulse Oximetry 94 Oxygen Delivery Method Room Air 04/26/23 10:53 Pulse Rate 87 Respiratory Rate Blood Pressure 126/80 Pulse Oximetry 95 Oxygen Delivery Method Room Air <Rajan De Anda MD - Last Filed: 04/26/23 17:34> Orders Ordered: Discontinued Medications Albuterol (Albuterol 2.5 Mg/3 Ml Neb (Adult)) 5 mg INH NOW ONE Stop: 04/26/23 06:19 Last Admin: 04/26/23 06:21 Dose: 5 mg Documented By: LANI Albuterol (Albuterol 2.5 Mg/3 Ml Neb (Adult)) 2.5 mg INH NOW ONE Stop: 04/26/23 06:56 Last Admin: 04/26/23 07:13 Dose: 2.5 mg Documented By: KARI Albuterol (Albuterol 2.5 Mg/3 Ml Neb (Adult)) 2.5 mg INH NOW ONE Stop: 04/26/23 07:29 Last Admin: 04/26/23 07:42 Dose: 2.5 mg Documented By: KARI Clindamycin HCl (Clindamycin 150 Mg Capsule) 300 mg PO NOW ONE Stop: 04/26/23 07:29 Last Admin: 04/26/23 07:41 Dose: 300 mg Documented By: KARI Magnesium Sulfate (Magnesium Sulfate) 2 gm in 50 mls @ 150 mls/hr IV NOW ONE Stop: 04/26/23 10:14 Last Infusion: 04/26/23 10:55 Dose: Infused Documented By: HEATHER Co-signed By: CHARISSA Admin: 04/26/23 09:59 Dose: 150 mls/hr Documented By: HEATHER Co-signed By: KARI Ibuprofen (Ibuprofen 400 Mg Tablet) 800 mg PO NOW ONE Stop: 04/26/23 06:35 Last Admin: 04/26/23 06:37 Dose: 800 mg Documented By: RENITA Methylprednisolone (Methylprednisolone 125 Mg/2 Ml Vial) 125 mg IV NOW ONE Stop: 04/26/23 07:29 Last Admin: 04/26/23 07:41 Dose: 125 mg Documented By: KARI Vital Signs Vital signs: Vital Signs - 8 hr 04/26/23 09:40 04/26/23 09:40 04/26/23 10:00 Pulse Rate 104 H 96 H Respiratory Rate 19 25 H Blood Pressure 124/85 Pulse Oximetry 92 93 Oxygen Delivery Method Room Air 04/26/23 10:02 04/26/23 10:02 04/26/23 10:15 Pulse Rate 97 H 88 Respiratory Rate 21 21 Blood Pressure 114/71 Pulse Oximetry 92 92 Oxygen Delivery Method 04/26/23 10:15 04/26/23 10:30 04/26/23 10:30 Pulse Rate 94 H Respiratory Rate 22 Blood Pressure 110/70 109/82 Pulse Oximetry 94 Oxygen Delivery Method Room Air 04/26/23 10:53 Pulse Rate 87 Respiratory Rate Blood Pressure 126/80 Pulse Oximetry 95 Oxygen Delivery Method Room Air Medical Decision Making <Braden Herrera, - Last Filed: 04/28/23 17:57> Lab Data 04/26/23 07:45 04/26/23 07:45 Labs: Lab Results 04/26/23 04/26/23 04/26/23 Range/Units 07:45 08:29 10:25 WBC 9.0 (4.5-11.0) X10^3/uL RBC 4.41 L (4.5-5.9) X10^6/uL Hgb 14.7 (13.5-17.5) g/dL Hct 42.0 (41-53) % MCV 95.2 (80-100) fL MCH 33.4 (26-34) PG MCHC 35.1 (30-36) % RDW 12.6 (11.6-14.8) % Plt Count 288 (150-400) X10^3/uL Neut % (Auto) 75.5 H (50-75) % Lymph % (Auto) 12.5 L (25-40) % [place] % (Auto) 8.3 (3-14) % Eos % (Auto) 2.5 (2-4) % Baso % (Auto) 1.2 (0-2) % Neut # (Auto) 6800 (7837-1680) /uL Lymph # (Auto) 1100 (1737-0397) /uL [place] # (Auto) 800 (0-900) /uL Eos # (Auto) 200 (0-450) /uL Baso # (Auto) 100 (0-100) /uL D-Dimer < 215 (<500) ng/ml VBG pH 7.46 H (7.33-7.43) VBG pCO2 43.2 L (45-50) mmHg VBG pO2 86 H (35-45) mmHg VBG HCO3 31 H (24-28) mmol/L VBG Total CO2 32 H (24-29) mmol/L VBG O2 Saturation 97 H (70-75) % VBG Base Excess 7.0 H (0-4) mmol/L FiO2 21 Sodium 136 L (137-145) mmol/L Potassium 3.9 (3.4-5.1) mmol/L Chloride 103 (98-107) mmol/L Carbon Dioxide 32 (22-32) mmol/L BUN 22 H (9-20) mg/dL Creatinine 0.75 (0.66-1.25) mg/dL Estimated GFR > 60 (>60) mL/min BUN/Creatinine Ratio 29.3 H (6-22) Glucose 100 (70-100) mg/dL Calcium 9.3 (8.4-10.2) mg/dL Total Bilirubin 1.0 (0.2-1.3) mg/dL AST 27 (17-59) IU/L ALT 27 (<50) IU/L Alkaline Phosphatase 63 (38-126) U/L Total Protein 7.0 (6.3-8.2) g/dL Albumin 4.2 (3.5-5.0) g/dL Globulin 2.8 (1.7-4.1) g/dL Albumin/Globulin Ratio 1.5 (1.0-2.8) SARS-CoV-2 (PCR) Negative (Negative) Influenza A (RT-PCR) Flu a negative (NEGATIVE) Influenza B (RT-PCR) Flu b negative (NEGATIVE) RSV (PCR) Negative (Negative) MDM Narrative Medical decision making narrative: 48-year-old male. Well known to myself. Has a history of asthma. Does continue to smoke. Is here for dental pain. No drainable abscess noted on exam however given his symptoms will start on antibiotics. He was also wheezing. He frequently requires multiple nebulizers here in the ER. Received 5 mg of albuterol. He reports improvement however still has quite a bit of wheezing and shortness of breath. Will order more nebs. Care turned over to day provider to follow-up and disposition. <Rajan De Anda MD - Last Filed: 04/26/23 17:34> Lab Data Labs: Lab Results 04/26/23 04/26/23 04/26/23 Range/Units 07:45 08:29 10:25 WBC 9.0 (4.5-11.0) X10^3/uL RBC 4.41 L (4.5-5.9) X10^6/uL Hgb 14.7 (13.5-17.5) g/dL Hct 42.0 (41-53) % MCV 95.2 (80-100) fL MCH 33.4 (26-34) PG MCHC 35.1 (30-36) % RDW 12.6 (11.6-14.8) % Plt Count 288 (150-400) X10^3/uL Neut % (Auto) 75.5 H (50-75) % Lymph % (Auto) 12.5 L (25-40) % [place] % (Auto) 8.3 (3-14) % Eos % (Auto) 2.5 (2-4) % Baso % (Auto) 1.2 (0-2) % Neut # (Auto) 6800 (3564-8639) /uL Lymph # (Auto) 1100 (9963-3744) /uL [place] # (Auto) 800 (0-900) /uL Eos # (Auto) 200 (0-450) /uL Baso # (Auto) 100 (0-100) /uL D-Dimer < 215 (<500) ng/ml VBG pH 7.46 H (7.33-7.43) VBG pCO2 43.2 L (45-50) mmHg VBG pO2 86 H (35-45) mmHg VBG HCO3 31 H (24-28) mmol/L VBG Total CO2 32 H (24-29) mmol/L VBG O2 Saturation 97 H (70-75) % VBG Base Excess 7.0 H (0-4) mmol/L FiO2 21 Sodium 136 L (137-145) mmol/L Potassium 3.9 (3.4-5.1) mmol/L Chloride 103 (98-107) mmol/L Carbon Dioxide 32 (22-32) mmol/L BUN 22 H (9-20) mg/dL Creatinine 0.75 (0.66-1.25) mg/dL Estimated GFR > 60 (>60) mL/min BUN/Creatinine Ratio 29.3 H (6-22) Glucose 100 (70-100) mg/dL Calcium 9.3 (8.4-10.2) mg/dL Total Bilirubin 1.0 (0.2-1.3) mg/dL AST 27 (17-59) IU/L ALT 27 (<50) IU/L Alkaline Phosphatase 63 (38-126) U/L Total Protein 7.0 (6.3-8.2) g/dL Albumin 4.2 (3.5-5.0) g/dL Globulin 2.8 (1.7-4.1) g/dL Albumin/Globulin Ratio 1.5 (1.0-2.8) SARS-CoV-2 (PCR) Negative (Negative) Influenza A (RT-PCR) Flu a negative (NEGATIVE) Influenza B (RT-PCR) Flu b negative (NEGATIVE) RSV (PCR) Negative (Negative) MDM Narrative Additional Information: Sign out at 7:00AM. This is a 48yo M w/h/o homelessness, smoking, substance use, asthma, who presented with cough, wheezing, shortness of breath, afebrile. He received albuterol with improvement though still has some wheezing. We anticipate he will continue improving with an additional neb. He has dental pain with no drainable abscess, receiving ibuprofen. Prescriptions for Clinda sent (PCN allergy) and prednisone. PLAN: reassess after albuterol, anticipate discharge. Patient is well known to overnight physician, no labs or imaging felt needed in setting of clear asthma symptoms and signs. On reassessment of patient, while he is showing some improvement, he remains dyspneic with moderate aeration bilaterally with expiratory wheezing. I feel he needs additional treatment. In this setting, in addition to ordering chest x-ray and EKG, I am giving 125 mg IV Solu-Medrol, additional albuterol nebulizers, and his oral clindamycin here. He is also hungry, and we are giving food. EKG NSR without acute ischemia or immediately concerning interval prolongation on my review. Note morphology similar to March 15 EKG. Radiology review of CXR below, which I agree with on my independent review: FINDINGS: Surgical changes and devices: None. Lungs and pleura: No dense consolidation. Possible trace effusions versus pleural thickening at the costophrenic angles. Mild bibasilar opacities, possibly atelectasis. Mediastinum: Normal heart size Bones and chest wall: Unremarkable IMPRESSION: Impression single view radiograph. Trace pleural thickening, likely chronic. Mild bibasilar opacities may represent atelectasis versus aspiration A lateral view could be helpful. Dictated by: Giuseppe Rock M.D. on 04/26/2023 at 7:57 Note I think PNA less likely clinically than asthma exacerbation, with viral syndrome possible. Adding lateral view per recommendation though. Added CBC, chemsitry, viral swab. Patient gradually improving. Note tachycardia improving with treatment, as well as tachypnea. CBC reassuring, no leukocytosis or anemia or thrombocytopenia. Chemistry with borderline hyponatremia, creatinine similar to prior, overall reassuring. Additional CXR view: FINDINGS: Surgical changes and devices: None. Lungs and pleura: Lungs are clear. No pleural effusions or pneumothorax. Emphysematous change with pulmonary hyperexpansion. Mediastinum: Mediastinal contours appear normal. Heart size is normal. Bones and chest wall: No suspicious bony lesions. Overlying soft tissues appear unremarkable. IMPRESSION: COPD. No acute pulmonary process. Dictated by: Orlando Gracia M.D. on 04/26/2023 at 8:30 I agree with this read. Patient had improvement, but still had wheezing. I spoke with Dr. Russell, hospitalist, to consider admission for observation. Adding Mag Sulfate 2g IV, VBG. Patient is gradually improving but not to extent yet for discharge. D-dimer reassuring. VBG reassuring. Patient has now improved and and requests to discharge. Dr. Russell also saw patient in person and agrees with discharge. This remains currently consistent with asthma exacerbation, now improving, in a patient who states he can return and understands return precautions and plan, with prescriptions given as discussed. Repeat exam and vital signs reassuring. Questions answered. Plan reviewed. Patient discharged in stable condition. Discharge Plan Departure Patient Disposition: Home Clinical Impression: Asthma, Pain, dental Instructions: DI for Asthma -- Adult, DI for Dental Pain Activity Restrictions/Additional Instructions: Take all of your medications as directed. Return to the emergency department as needed. If you have any new or worsening pain, shortness of breath, fever, vomiting, confusion, numbness, weakness, or anything else that concerns you, please immediately return. Otherwise, please see your primary doctor or another doctor within 2-3 days to be reassessed. Prescriptions: New prednisone 20 mg tablet 20 mg PO DAILY 5 Days Qty: 5 0RF clindamycin HCl 300 mg capsule 300 mg PO Q6H 7 Days Qty: 28 0RF No Action fluticasone propion-salmeterol 230-21 mcg/actuation HFA aerosol inhaler 2 inh inhalation BID Qty: 12 3RF azithromycin 250 mg tablet See Rx Instructions .ROUTE .COMPLEX Qty: 6 0RF Rx Instructions: For 250 mg dose pack: take 500 mg today (day 1), then 250 mg for 4 days (days 2-5) fluticasone propion-salmeterol [Advair HFA] 230-21 mcg/actuation HFA aerosol inhaler 2 puff inhalation Q12H Qty: 12 0RF albuterol sulfate 90 mcg/actuation HFA aerosol inhaler 2 puff inhalation Q4-6H PRN (Reason: shortness of breath or wheezing) Qty: 8.5 0RF albuterol sulfate 90 mcg/actuation HFA aerosol inhaler 2 puff inhalation Q6H PRN (Reason: shortness of breath or wheezing) Qty: 8.5 6RF albuterol sulfate 90 mcg/actuation HFA aerosol inhaler 2 puff inhalation Q4-6H PRN (Reason: shortness of breath or wheezing) Qty: 8.5 0RF prednisone 10 mg tablet 10 mg PO DAILY Qty: 30 0RF Rx Instructions: day 1-3: 40 mg once a day day 4-6: 30 mg once a day day 7-9: 20 mg once a day day 10-12: 10 mg once a day albuterol sulfate [Ventolin HFA] 90 mcg/actuation HFA aerosol inhaler 2 inhalation INHALATION QID PRN (Reason: shortness of breath or wheezing) Qty: 6.7 0RF Referrals: Shaniqua Grady RN [Primary Care Provider] - Stand Alone Forms: Patient Portal/API
[2023-04-26] MEDS: ALBUTEROL 2.5 MG/3 ML NEB (ADULT) 5 MG INH (06:21)
[2023-04-26] MEDS: IBUPROFEN 400 MG TABLET 800 MG PO (06:37)
[2023-04-26] MEDS: ALBUTEROL 2.5 MG/3 ML NEB (ADULT) INH ×2 (07:13→07:42)
--- NOTE | 2023-04-26 07:28 | DI.RAD.S_ITS ---
PROCEDURE: XR CHEST 1V INDICATIONS: Shortness of breath TECHNIQUE: One view of the chest was acquired. COMPARISON: [facility], CR, XR CHEST 1V, 03/15/2023, 18:11. [facility], CR, XR CHEST 1V, 11/02/2022, 9:19. FINDINGS: Surgical changes and devices: None. Lungs and pleura: No dense consolidation. Possible trace effusions versus pleural thickening at the costophrenic angles. Mild bibasilar opacities, possibly atelectasis. Mediastinum: Normal heart size Bones and chest wall: Unremarkable IMPRESSION: Impression single view radiograph. Trace pleural thickening, likely chronic. Mild bibasilar opacities may represent atelectasis versus aspiration A lateral view could be helpful. Dictated by: Giuseppe Rock M.D. on 04/26/2023 at 7:57 Approved by: Giuseppe Rock M.D. on 04/26/2023 at 7:59
[2023-04-26] MEDS: CLINDAMYCIN 150 MG CAPSULE 300 MG PO (07:41)
[2023-04-26] MEDS: methylPREDNISolone 125 MG/2 ML VIAL IV (07:41)
--- NOTE | 2023-04-26 08:15 | DI.RAD.S_ITS ---
PROCEDURE: XR CHEST 1V INDICATIONS: SOB; please add lateral view per rads request TECHNIQUE: One view of the chest was acquired. COMPARISON: [facility], CR, XR CHEST 1V, 03/15/2023, 18:11. [facility], CR, XR CHEST 1V, 04/26/2023, 7:36. FINDINGS: Surgical changes and devices: None. Lungs and pleura: Lungs are clear. No pleural effusions or pneumothorax. Emphysematous change with pulmonary hyperexpansion. Mediastinum: Mediastinal contours appear normal. Heart size is normal. Bones and chest wall: No suspicious bony lesions. Overlying soft tissues appear unremarkable. IMPRESSION: COPD. No acute pulmonary process. Dictated by: Orlando Gracia M.D. on 04/26/2023 at 8:30 Approved by: Orlando Gracia M.D. on 04/26/2023 at 8:45
[2023-04-26 08:26] LABS: Add Manual Diff / Slide Review NO; Basophils Absolute Auto 100 /uL (0-100); Basophils Percent Auto 1.2 % (0-2); Eosinophils Absolute Auto 200 /uL (0-450); Eosinophils Percent Auto 2.5 % (2-4); Hemoglobin 14.7 g/dL (13.5-17.5); Lymphocytes Absolute Auto 1100 /uL (1100-4500); Lymphocytes Percent Auto 12.5 % (25-40); Mean Corpuscular HGB Conc 35.1 % (30-36); Mean Corpuscular Hemoglobin 33.4 PG (26-34); Mean Corpuscular Volume 95.2 fL (80-100); Monocytes Absolute Auto 800 /uL (0-900); Monocytes Percent Auto 8.3 % (3-14); Neutrophils Absolute Auto 6800 /uL (1500-7000); Neutrophils Percent Auto 75.5 % (50-75); Platelet Count 288 X10^3/uL (150-400); Red Blood Cell Count 4.41 X10^6/uL (4.5-5.9); Red Cell Distribution Width 12.6 % (11.6-14.8)
[2023-04-26 08:29] LABS: Alanine Aminotransferase 27 IU/L (<50); Albumin 4.2 g/dL (3.5-5.0); Albumin Globulin Ratio 1.5 (1.0-2.8); Alkaline Phosphatase 63 U/L (38-126); Aspartate Aminotransferase 27 IU/L (17-59); BUN Creatinine Ratio 29.3 (6-22); Blood Urea Nitrogen 22 mg/dL (9-20); Calcium 9.3 mg/dL (8.4-10.2); Carbon Dioxide 32 mmol/L (22-32); Chloride 103 mmol/L (98-107); Estimated Glomerular Filt Rate > 60 mL/min (>60); Globulin 2.8 g/dL (1.7-4.1); Glucose 100 mg/dL (70-100); HEMOLYSIS < 15 (0-50); Potassium 3.9 mmol/L (3.4-5.1); Sodium 136 mmol/L (137-145)
[2023-04-26 09:11] LABS: COVID-19 CEPHEID 4-PLEX PCR Negative (Negative); Influenza A - CEPHEID Flu A NEGATIVE (NEGATIVE); Influenza B - CEPHEID Flu B NEGATIVE (NEGATIVE); Respiratory Syncytial Virus Negative (Negative)
--- NOTE | 2023-04-26 09:44 | PC.NURSE ---
Pt up to bathroom, upon returning states he is feeling like I can't take a deep breath again. Provider notified.
[2023-04-26] MEDS: MAGNESIUM SULFATE 2 GM/50 ML PIGGYBACK IV (09:59)
[2023-04-26 10:09] LABS: D Dimer < 215 ng/ml (<500)
--- NOTE | 2023-04-26 10:42 | PM.CN ---
History of Present Illness Consult details Date Patient Seen: 04/26/23 Time Patient Seen: 10:42 Chief complaint: SOB, bad tooth making rt eye hurt and rt ear, Narrative: This is a 48 year old male with PMH of asthma, tobacco use who presented with shortness of breath for the past day. He has frequent ER visits for asthma exacerbations but no prior admissions. He has been seen in the ER 4 times in the past year. He is currently on dulera and albuterol for his asthma. He has tried montelukast in the past without much change. He is not interested in smoking. He states he has had nasal congestion and R ear pain recently which now he has cough and then trouble breathing. Cough is nonproductive to patient. He denies chest pain, orthopnea, LE edema. Meds Home Medications and Allergies Home Medications Medication Instructions Recorded Confirmed Type fluticasone propionate 230 2 inh inhalation BID #12 grams 08/18/21 01/18/22 Rx mcg-salmeterol 21 mcg/actuation HFA inhaler albuterol sulfate 90 mcg/actuation 2 puff inhalation Q6H PRN 09/28/21 01/18/22 Rx aerosol inhaler shortness of breath or wheezing #8.5 grams albuterol sulfate 90 mcg/actuation 2 puff inhalation Q4-6H PRN 01/18/22 Rx aerosol inhaler shortness of breath or wheezing #8.5 grams azithromycin 250 mg tablet See Rx Instructions PO .COMPLEX #6 03/25/22 Rx tabs prednisone 10 mg tablet 10 mg PO DAILY #30 tabs 04/12/22 Rx albuterol sulfate 90 mcg/actuation 2 puff inhalation Q4-6H PRN 07/09/22 Rx aerosol inhaler shortness of breath or wheezing #8.5 grams fluticasone propionate 230 2 puff inhalation Q12H #12 grams 07/09/22 Rx mcg-salmeterol 21 mcg/actuation HFA inhaler (Advair HFA) albuterol sulfate 90 mcg/actuation 2 inhalation inhalation QID PRN 11/02/22 Rx aerosol inhaler (Ventolin HFA) shortness of breath or wheezing #6.7 grams clindamycin HCl 300 mg capsule 300 mg PO Q6H 7 days #28 caps 04/26/23 Rx prednisone 20 mg tablet 20 mg PO DAILY 5 days #5 tabs 04/26/23 Rx Allergies Allergy/AdvReac Type Severity Reaction Status Date / Time Penicillins Allergy Severe Unresponsiv Verified 03/15/23 16:57 e Review of Systems Review of Systems Narrative: All other systems reviewed with the patient and are negative unless otherwise stated. Exam Vital Signs (past 8 hours): - 04/26/23 06:20 04/26/23 06:21 04/26/23 06:54 Temperature 97 F L Pulse Rate 111 H 120 H 98 H Respiratory Rate 26 H 26 H Blood Pressure 149/89 H Pulse Oximetry 97 96 95 Oxygen Delivery Method Room Air Room Air Oxygen Flow Rate 0 Fraction of Inspired Oxygen 21 04/26/23 07:00 04/26/23 07:00 04/26/23 07:30 Temperature Pulse Rate 93 H 95 H Respiratory Rate Blood Pressure 132/87 Pulse Oximetry 93 92 Oxygen Delivery Method Oxygen Flow Rate Fraction of Inspired Oxygen 04/26/23 07:52 04/26/23 07:52 04/26/23 08:00 Temperature Pulse Rate 97 H Respiratory Rate 13 Blood Pressure 128/85 119/81 Pulse Oximetry 98 Oxygen Delivery Method Room Air Oxygen Flow Rate Fraction of Inspired Oxygen 04/26/23 08:00 04/26/23 08:30 04/26/23 08:30 Temperature Pulse Rate 96 H 93 H Respiratory Rate 20 24 Blood Pressure 133/85 Pulse Oximetry 94 93 Oxygen Delivery Method Room Air Room Air Oxygen Flow Rate Fraction of Inspired Oxygen 04/26/23 09:00 04/26/23 09:00 04/26/23 09:30 Temperature Pulse Rate 98 H Respiratory Rate 20 Blood Pressure 116/74 125/75 Pulse Oximetry 93 Oxygen Delivery Method Room Air Oxygen Flow Rate Fraction of Inspired Oxygen 04/26/23 09:30 04/26/23 09:40 04/26/23 09:40 Temperature Pulse Rate 106 H 104 H Respiratory Rate 12 19 Blood Pressure 124/85 Pulse Oximetry 92 92 Oxygen Delivery Method Room Air Room Air Oxygen Flow Rate Fraction of Inspired Oxygen 04/26/23 10:00 04/26/23 10:02 04/26/23 10:02 Temperature Pulse Rate 96 H 97 H Respiratory Rate 25 H 21 Blood Pressure 114/71 Pulse Oximetry 93 92 Oxygen Delivery Method Oxygen Flow Rate Fraction of Inspired Oxygen 04/26/23 10:15 04/26/23 10:15 04/26/23 10:30 Temperature Pulse Rate 88 Respiratory Rate 21 Blood Pressure 110/70 109/82 Pulse Oximetry 92 Oxygen Delivery Method Oxygen Flow Rate Fraction of Inspired Oxygen 04/26/23 10:30 Temperature Pulse Rate 94 H Respiratory Rate 22 Blood Pressure Pulse Oximetry 94 Oxygen Delivery Method Room Air Oxygen Flow Rate Fraction of Inspired Oxygen Fraction of Inspired Oxygen 21 SaO2/FiO2 Ratio 457 Oxygen Delivery Method Room Air Oxygen Flow Rate 0 Narrative Exam Narrative: General:? Patient is well developed and well nourished, in no distress at this time. HEENT:? Normocephalic, atraumatic, extraocular muscles intact, oral pharynx is clear and mucous membranes are moist. Neck: supple and symmetric, trachea is midline, no cervical adenopathy. Negative for JVD Chest:? Normal AP diameter and contour without kyphoscoliosis, no tachypnea, equal chest rise bilaterally. Lungs:? Diffuse mild expiratory wheezing. Cardio:?RRR no m/r/g. Abdomen: S NT ND. Musculoskeletal:? Muscle strength and tone are equal within normal limits, no deformity. Extremities: No edema or joint effusions. No cyanosis or clubbing. Skin:? Pale,? Warm to touch,dry and intact without rashes, ulcerations or petechiae.? Neuro:? Alert and orientated x3,? sensation to touch intact in all extremities, no gross deficits noted of cranial nerves. Psych:? Patient has a well-kept appearance, appropriate affect, mental status attitude thought context and judgment are appropriate for age. Objective ECG Impression: Normal sinus rhythm with sinus arrhythmia Left axis deviation No acute ischemia per my interpretation Labs 04/26/23 07:45 04/26/23 07:45 Labs: Laboratory Results - last 24 hr 04/26/23 04/26/23 07:45 08:29 WBC 9.0 RBC 4.41 L Hgb 14.7 Hct 42.0 MCV 95.2 MCH 33.4 MCHC 35.1 RDW 12.6 Plt Count 288 Neut % (Auto) 75.5 H Lymph % (Auto) 12.5 L [place] % (Auto) 8.3 Eos % (Auto) 2.5 Baso % (Auto) 1.2 Neut # (Auto) 6800 Lymph # (Auto) 1100 [place] # (Auto) 800 Eos # (Auto) 200 Baso # (Auto) 100 D-Dimer < 215 Sodium 136 L Potassium 3.9 Chloride 103 Carbon Dioxide 32 BUN 22 H Creatinine 0.75 Estimated GFR > 60 BUN/Creatinine Ratio 29.3 H Glucose 100 Calcium 9.3 Total Bilirubin 1.0 AST 27 ALT 27 Alkaline Phosphatase 63 Total Protein 7.0 Albumin 4.2 Globulin 2.8 Albumin/Globulin Ratio 1.5 SARS-CoV-2 (PCR) Negative Influenza A (RT-PCR) Flu a negative Influenza B (RT-PCR) Flu b negative RSV (PCR) Negative [facility] Medical History Asthma Tobacco & Substance Use Smoking Status: Current every day smoker Assessment & Plan Assessment & Plan narrative: 1. At least Moderate persistent asthma with acute exacerbation - recommend continuation of home dulera and albuterol - prednisone 40 mg x5 days - okay with clinda per ER provider - discussed risks and benefits of admission vs discharge home with the patient. He was feeling improved and wished to discharge home. - did add on d-dimer given frequent admissions which was negative. PE highly unlikely - did discuss with patient that the best thing for reducing his exacerbations would be to stop smoking. Code: Full Dispo: recommend discharge home from the ER I have utilized all available immediate resources to obtain, update, or review the patient's current medications. Additional history obtained from discussion with ER provider, discussed recommendations with ER provider and was agreeable with discharge home.
[2023-04-26 11:07] LABS: HCO3 VBG 31 mmol/L (24-28); Oxygen Saturation VBG 97 % (70-75); PCO2 VBG 43.2 mmHg (45-50); PO2 VBG 86 mmHg (35-45); Total CO2 VBG 32 mmol/L (24-29); pH VBG 7.46 (7.33-7.43)
[2023-04-26 11:08] LABS: Fractionated Inspired Oxygen 21
== END 2023-04-26 10:53 | disposition home or self-care (01) ==
PROVIDERS: Internal Medicine; Emergency Provider Emergency Medicine; PCP Nurse Practitioner Family
DX: J45.909 Unspecified asthma, uncomplicated (principal); K08.89 Other specified disorders of teeth and supporting structures; Z20.822 Contact with and (suspected) exposure to COVID-19
CPT/HCPCS: 0241U; 71045; 80053; 82805; 85025; 85379; 87070; 87205; 93005; 96361; 96374; 99284; J2919; J3475; J7613

== ENCOUNTER 2023-05-22 21:52 | Emergency (ER) | payer MEDICARE, MEDICAID, SELFPAY ==
[2023-05-22] VITALS (10 sets, daily range): BP systolic 127–144; BP diastolic 88–90; PULSE 108–122; RESP 12–33; TEMP 37.2; O2SAT 90–95; BMI 22.8
--- NOTE | 2023-05-22 22:01 | ED_ITS ---
HPI - General Adult General Chief complaint: Shortness of Breath/Dyspnea Stated complaint: short of breath Time Seen by Provider: 05/22/23 21:59 Source: patient History of Present Illness HPI narrative: Patient is a 48-year-old male. Has a history of asthma. I have evaluated him multiple times here in the emergency department in the past. He is here for evaluation of a cough, sore throat, shortness of breath. He states he does have his inhalers and has been using them although he feels like they are not working particularly well this time. Chest discomfort because of the shortness of breath. No nausea or vomiting. No fevers. Related Data Previous Rx's Medication Instructions Recorded fluticasone propionate 230 2 inh inhalation BID #12 grams 08/18/21 mcg-salmeterol 21 mcg/actuation HFA inhaler albuterol sulfate 90 mcg/actuation 2 puff inhalation Q6H PRN 09/28/21 aerosol inhaler shortness of breath or wheezing #8.5 grams albuterol sulfate 90 mcg/actuation 2 puff inhalation Q4-6H PRN 01/18/22 aerosol inhaler shortness of breath or wheezing #8.5 grams azithromycin 250 mg tablet See Rx Instructions PO .COMPLEX #6 03/25/22 tabs prednisone 10 mg tablet 10 mg PO DAILY #30 tabs 04/12/22 albuterol sulfate 90 mcg/actuation 2 puff inhalation Q4-6H PRN 07/09/22 aerosol inhaler shortness of breath or wheezing #8.5 grams fluticasone propionate 230 2 puff inhalation Q12H #12 grams 07/09/22 mcg-salmeterol 21 mcg/actuation HFA inhaler (Advair HFA) albuterol sulfate 90 mcg/actuation 2 inhalation inhalation QID PRN 11/02/22 aerosol inhaler (Ventolin HFA) shortness of breath or wheezing #6.7 grams prednisone 20 mg tablet 20 mg PO DAILY 4 days #4 tabs 05/23/23 Allergies Allergy/AdvReac Type Severity Reaction Status Date / Time Penicillins Allergy Severe Unresponsiv Verified 03/15/23 16:57 e Review of Systems Review of Systems Narrative: See HPI Patient History Medical History Asthma Social History (Reviewed 05/23/23 @ 03:01 by JUDIT Quevedo Smoking Status: Current every day smoker Smoking Status: Current every day smoker tobacco type: cigarettes and vaping alcohol intake frequency: a few times a week Substance Use Type: marijuana Exam Initial Vital Signs Initial Vital Signs: Vital Signs Pulse Rate 121 H 05/22/23 22:01 Blood Pressure 144/88 H 05/22/23 22:01 Pulse Oximetry 93 05/22/23 22:01 Const General: cooperative, well developed and No ill appearing Resp Effort & Inspection: cough, labored, no retractions and tachypneic Auscultation: wheezes Cardio Rate: regular rate Rhythm: regular rhythm GI Inspection: normal to inspection and non-distended Skin General: no rashes or lesions noted Neuro General: patient alert, patient awake and moves all extremities Extrem General: capillary refill normal Course Orders Ordered: ED Orders 05/22/23 22:08 Basic Metabolic Panel Stat Complete Blood Count AUTO DIFF Stat Covid-19 + FLU A/B + RSV - PCR Stat Discontinued Medications Albuterol (Albuterol 2.5 Mg/3 Ml Neb (Adult)) 2.5 mg INH NOW ONE Stop: 05/22/23 23:42 Last Admin: 05/22/23 23:58 Dose: 2.5 mg Documented By: LANI Albuterol/Ipratropium (Albuterol/Ipratropium 3 Ml Ampul) 3 ml INH Q20M [facility] Stop: 05/22/23 22:56 Last Admin: 05/22/23 22:59 Dose: 3 ml Documented By: Admin: 05/22/23 22:31 Dose: 3 ml Documented By: Admin: 05/22/23 22:08 Dose: 3 ml Documented By: LANI Methylprednisolone (Methylprednisolone 125 Mg/2 Ml Vial) 125 mg IV NOW ONE Stop: 05/22/23 22:02 Last Admin: 05/22/23 22:16 Dose: 125 mg Documented By: GERARDO Sodium Chloride (Sodium Chloride 0.9% (Rt/Inh) 3 Ml Neb) 3 ml INH NOW ONE Stop: 05/22/23 23:56 Last Admin: 05/22/23 23:58 Dose: 3 ml Documented By: LANI Vital Signs Vital signs: Vital Signs - 8 hr 05/22/23 22:01 05/22/23 22:01 05/22/23 22:07 Temperature 99 F Pulse Rate 121 H 120 H Respiratory Rate 24 Blood Pressure 144/88 H 144/88 H Pulse Oximetry 93 93 Oxygen Delivery Method Room Air Oxygen Flow Rate Fraction of Inspired Oxygen 05/22/23 22:08 05/22/23 22:30 05/22/23 22:31 Temperature Pulse Rate 117 H 108 H 111 H Respiratory Rate 24 12 24 Blood Pressure Pulse Oximetry 95 94 92 Oxygen Delivery Method Room Air Room Air Room Air Oxygen Flow Rate 0 0 Fraction of Inspired Oxygen 21 21 05/22/23 22:59 05/22/23 23:00 05/22/23 23:11 Temperature Pulse Rate 112 H 114 H 122 H Respiratory Rate 22 24 33 H Blood Pressure Pulse Oximetry 91 92 92 Oxygen Delivery Method Room Air Oxygen Flow Rate 0 Fraction of Inspired Oxygen 05/22/23 23:11 05/22/23 23:30 05/22/23 23:30 Temperature Pulse Rate 110 H Respiratory Rate 24 Blood Pressure 127/89 130/90 Pulse Oximetry 90 L Oxygen Delivery Method Room Air Oxygen Flow Rate Fraction of Inspired Oxygen 05/22/23 23:58 05/23/23 00:00 05/23/23 00:00 Temperature Pulse Rate 119 H 112 H Respiratory Rate 20 23 Blood Pressure 114/85 Pulse Oximetry 95 Oxygen Delivery Method Room Air Oxygen Flow Rate 0 Fraction of Inspired Oxygen 05/23/23 00:30 05/23/23 00:30 05/23/23 01:00 Temperature 98.4 F Pulse Rate 113 H 112 H Respiratory Rate 29 H 20 Blood Pressure 130/82 Pulse Oximetry 91 94 Oxygen Delivery Method Room Air Room Air Oxygen Flow Rate Fraction of Inspired Oxygen 05/23/23 01:00 Temperature Pulse Rate Respiratory Rate Blood Pressure 125/86 Pulse Oximetry Oxygen Delivery Method Oxygen Flow Rate Fraction of Inspired Oxygen Medical Decision Making Medical Records Medical records reviewed: Yes I reviewed the patient's medical records. Lab Data Lab results reviewed: Yes I reviewed the patient's lab results. 05/22/23 22:08 05/22/23 22:08 Labs: Lab Results 05/22/23 Range/Units 22:08 WBC 6.8 (4.5-11.0) X10^3/uL RBC 4.62 (4.5-5.9) X10^6/uL Hgb 15.4 (13.5-17.5) g/dL Hct 44.8 (41-53) % MCV 97.1 (80-100) fL MCH 33.4 (26-34) PG MCHC 34.4 (30-36) % RDW 12.8 (11.6-14.8) % Plt Count 290 (150-400) X10^3/uL Neut % (Auto) 67.2 (50-75) % Lymph % (Auto) 12.7 L (25-40) % [place] % (Auto) 16.9 H (3-14) % Eos % (Auto) 2.5 (2-4) % Baso % (Auto) 0.7 (0-2) % Neut # (Auto) 4600 (1914-7535) /uL Lymph # (Auto) 900 L (0486-1267) /uL [place] # (Auto) 1100 H (0-900) /uL Eos # (Auto) 200 (0-450) /uL Baso # (Auto) 0 (0-100) /uL Sodium 138 (137-145) mmol/L Potassium 3.9 (3.4-5.1) mmol/L Chloride 99 (98-107) mmol/L Carbon Dioxide 35 H (22-32) mmol/L BUN 23 H (9-20) mg/dL Creatinine 0.81 (0.66-1.25) mg/dL Estimated GFR > 60 (>60) mL/min BUN/Creatinine Ratio 28.4 H (6-22) Glucose 113 H (70-100) mg/dL Calcium 10.0 (8.4-10.2) mg/dL SARS-CoV-2 (PCR) Negative (Negative) Influenza A (RT-PCR) Flu a negative (NEGATIVE) Influenza B (RT-PCR) Flu b negative (NEGATIVE) RSV (PCR) Negative (Negative) [facility] Narrative Medical decision making narrative: After medications here in the emergency department he reports a vast improvement of his symptoms although he still has diffuse wheezing. Oxygen saturations greater than 90% on room air. He states he was feeling much better and does not necessarily think that he needs another nebulizer treatment. This is not an unusual situation for him. He was given a dose of steroids. There was no indication for antibiotics. His flu/COVID/RSV are all negative. Patient states he feels well enough to be discharged. He was given return precautions. Prescription for a longer course of steroids was sent to the pharmacy of his choice. He expressed understanding and agreement with the plan. Discharge Plan Departure Patient Disposition: Home Clinical Impression: Asthma Instructions: DI for Asthma -- Adult Activity Restrictions/Additional Instructions: Continue to take all of your medications as directed. Contact your primary care doctor for a follow-up. Return to the emergency department for new or worsening symptoms. Prescriptions: New prednisone 20 mg tablet 20 mg PO DAILY 4 Days Qty: 4 0RF No Action fluticasone propion-salmeterol 230-21 mcg/actuation HFA aerosol inhaler 2 inh inhalation BID Qty: 12 3RF azithromycin 250 mg tablet See Rx Instructions .ROUTE .COMPLEX Qty: 6 0RF Rx Instructions: For 250 mg dose pack: take 500 mg today (day 1), then 250 mg for 4 days (days 2-5) fluticasone propion-salmeterol [Advair HFA] 230-21 mcg/actuation HFA aerosol inhaler 2 puff inhalation Q12H Qty: 12 0RF albuterol sulfate 90 mcg/actuation HFA aerosol inhaler 2 puff inhalation Q4-6H PRN (Reason: shortness of breath or wheezing) Qty: 8.5 0RF albuterol sulfate 90 mcg/actuation HFA aerosol inhaler 2 puff inhalation Q6H PRN (Reason: shortness of breath or wheezing) Qty: 8.5 6RF albuterol sulfate 90 mcg/actuation HFA aerosol inhaler 2 puff inhalation Q4-6H PRN (Reason: shortness of breath or wheezing) Qty: 8.5 0RF prednisone 10 mg tablet 10 mg PO DAILY Qty: 30 0RF Rx Instructions: day 1-3: 40 mg once a day day 4-6: 30 mg once a day day 7-9: 20 mg once a day day 10-12: 10 mg once a day albuterol sulfate [Ventolin HFA] 90 mcg/actuation HFA aerosol inhaler 2 inhalation INHALATION QID PRN (Reason: shortness of breath or wheezing) Qty: 6.7 0RF Referrals: Shaniqua Grady RN [Primary Care Provider] - Stand Alone Forms: Patient Portal/API
[2023-05-22] MEDS: ALBUTEROL/IPRATROPIUM 3 ML AMPUL INH ×3 (22:08→22:59)
[2023-05-22] MEDS: methylPREDNISolone 125 MG/2 ML VIAL IV (22:16)
[2023-05-22 22:27] LABS: Add Manual Diff / Slide Review NO; Basophils Absolute Auto 0 /uL (0-100); Basophils Percent Auto 0.7 % (0-2); Eosinophils Absolute Auto 200 /uL (0-450); Eosinophils Percent Auto 2.5 % (2-4); Hematocrit 44.8 % (41-53); Hemoglobin 15.4 g/dL (13.5-17.5); Lymphocytes Absolute Auto 900 /uL (1100-4500); Lymphocytes Percent Auto 12.7 % (25-40); Mean Corpuscular HGB Conc 34.4 % (30-36); Mean Corpuscular Hemoglobin 33.4 PG (26-34); Mean Corpuscular Volume 97.1 fL (80-100); Monocytes Absolute Auto 1100 /uL (0-900); Monocytes Percent Auto 16.9 % (3-14); Neutrophils Absolute Auto 4600 /uL (1500-7000); Neutrophils Percent Auto 67.2 % (50-75); Platelet Count 290 X10^3/uL (150-400); Red Blood Cell Count 4.62 X10^6/uL (4.5-5.9); Red Cell Distribution Width 12.8 % (11.6-14.8); White Blood Cell Count 6.8 X10^3/uL (4.5-11.0)
[2023-05-22 22:29] LABS: BUN Creatinine Ratio 28.4 (6-22); Blood Urea Nitrogen 23 mg/dL (9-20); Carbon Dioxide 35 mmol/L (22-32); Chloride 99 mmol/L (98-107); Estimated Glomerular Filt Rate > 60 mL/min (>60); Glucose 113 mg/dL (70-100); HEMOLYSIS < 15 (0-50); Potassium 3.9 mmol/L (3.4-5.1); Sodium 138 mmol/L (137-145)
[2023-05-22 22:54] LABS: Influenza A - CEPHEID Flu A NEGATIVE (NEGATIVE); Influenza B - CEPHEID Flu B NEGATIVE (NEGATIVE); Respiratory Syncytial Virus Negative (Negative)
[2023-05-22 23:04] LABS: COVID-19 CEPHEID 4-PLEX PCR Negative (Negative)
[2023-05-22] MEDS: ALBUTEROL 2.5 MG/3 ML NEB (ADULT) INH (23:58)
[2023-05-22] MEDS: SODIUM CHLORIDE 0.9% (RT/INH) 3 ML NEB INH (23:58)
[2023-05-23] VITALS: BP 114/85; PULSE 112; RESP 23
[2023-05-23 00:30] VITALS: BP 130/82; PULSE 113; RESP 29; O2SAT 91
[2023-05-23 01:00] VITALS: BP 125/86; PULSE 112; RESP 20; TEMP 36.9; O2SAT 94
== END 2023-05-23 01:21 | disposition home or self-care (01) ==
PROVIDERS: Emergency Provider Emergency Medicine; PCP Nurse Practitioner Family
DX: J45.909 Unspecified asthma, uncomplicated (principal); R07.9 Chest pain, unspecified; Z20.822 Contact with and (suspected) exposure to COVID-19
CPT/HCPCS: 0241U; 36415; 80048; 85025; 96374; 99284; J2919; J7613

== ENCOUNTER 2023-05-25 11:19 | Emergency (ER) | payer MEDICARE, MEDICAID, SELFPAY ==
[2023-05-25] VITALS (14 sets, daily range): BP systolic 130–156; BP diastolic 63–102; PULSE 106–119; RESP 20–36; TEMP 36.8; O2SAT 92–100
--- NOTE | 2023-05-25 11:25 | DI.RAD.S_ITS ---
PROCEDURE: XR CHEST 1V INDICATIONS: dyspnea TECHNIQUE: One view of the chest was acquired. COMPARISON: [facility], CR, XR CHEST 1V, 04/26/2023, 8:19. FINDINGS: Surgical changes and devices: None. Lungs and pleura: There is marked hyperinflation.. No pleural effusions or pneumothorax. Mediastinum: Mediastinal contours appear normal. Heart size is normal. Bones and chest wall: No suspicious bony lesions. Overlying soft tissues appear unremarkable. IMPRESSION: Hyperinflation. No focal infiltrate, pleural effusion or pneumothorax. Dictated by: Arvind Jamil M.D. on 05/25/2023 at 12:04 Approved by: Arvind Jamil M.D. on 05/25/2023 at 12:04
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
[2023-05-25 11:34] LABS: Add Manual Diff / Slide Review NO; Basophils Absolute Auto 0 /uL (0-100); Basophils Percent Auto 0.5 % (0-2); Eosinophils Absolute Auto 100 /uL (0-450); Eosinophils Percent Auto 0.8 % (2-4); Hematocrit 44.4 % (41-53); Hemoglobin 15.2 g/dL (13.5-17.5); Lymphocytes Absolute Auto 1300 /uL (1100-4500); Lymphocytes Percent Auto 13.7 % (25-40); Mean Corpuscular HGB Conc 34.2 % (30-36); Mean Corpuscular Hemoglobin 33.3 PG (26-34); Mean Corpuscular Volume 97.5 fL (80-100); Monocytes Absolute Auto 1200 /uL (0-900); Neutrophils Absolute Auto 7200 /uL (1500-7000); Platelet Count 344 X10^3/uL (150-400); Red Blood Cell Count 4.56 X10^6/uL (4.5-5.9); Red Cell Distribution Width 12.9 % (11.6-14.8); White Blood Cell Count 9.8 X10^3/uL (4.5-11.0)
[2023-05-25] MEDS: ALBUTEROL 2.5 MG/3 ML NEB (ADULT) 20 MG INH (11:37)
[2023-05-25 11:44] LABS: Alanine Aminotransferase 34 IU/L (<50); Albumin 4.6 g/dL (3.5-5.0); Albumin Globulin Ratio 1.5 (1.0-2.8); Alkaline Phosphatase 64 U/L (38-126); Aspartate Aminotransferase 36 IU/L (17-59); BUN Creatinine Ratio 40.3 (6-22); Bilirubin Total 0.6 mg/dL (0.2-1.3); Blood Urea Nitrogen 29 mg/dL (9-20); Carbon Dioxide 34 mmol/L (22-32); Chloride 101 mmol/L (98-107); Estimated Glomerular Filt Rate > 60 mL/min (>60); Globulin 3.1 g/dL (1.7-4.1); Glucose 102 mg/dL (70-100); HEMOLYSIS < 15 (0-50); Potassium 3.8 mmol/L (3.4-5.1); Sodium 141 mmol/L (137-145); Total Protein 7.7 g/dL (6.3-8.2)
[2023-05-25] MEDS: methylPREDNISolone 125 MG/2 ML VIAL IV (12:09)
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
== END 2023-05-25 13:52 | disposition home or self-care (01) ==
PROVIDERS: Emergency Provider Emergency Medicine; PCP Nurse Practitioner Family
DX: J45.41 Moderate persistent asthma with (acute) exacerbation (principal)
CPT/HCPCS: 71045; 80053; 85025; 96374; 99284; J2930; J7613